=== PATIENT | female | born 1965 | race African-American/Black ===

== ENCOUNTER → 2016-07-18 | Outpatient (CLI) | payer MEDICARE, MEDICAID | LOC: WI 13:30 | PROVIDERS: ATTEND Internal Medicine Geriatric Medicine | DX: Z12.31 Encounter for screening mammogram for malignant neoplasm of breast (principal); N63 Unspecified lump in breast | CPT/HCPCS: 77067; G0202 ==

== ENCOUNTER 2016-10-07 18:23 | Emergency (ER) | payer MEDICARE, MEDICAID ==
[2016-10-07 18:35] VITALS: BP 130/86
[2016-10-07] MEDS ORDERED: ASPIRIN 81 MG TABLET, CHEWABLE PO ONE (18:38)
--- NOTE | 2016-10-07 18:40 | ER Document Report ---
ED General - General Chief Complaint: Chest Pain Stated Complaint: CHEST PAIN TRAVEL OUTSIDE OF THE [place] IN LAST 30 DAYS: No - HPI Notes: Chest pain right-sided starting this a.m. patient has a history of diabetes. - Related Data Allergies/Adverse Reactions: No Known Allergies Allergy (Verified 10/07/16 18:36) Past Medical History - Social History Smoking Status: Never Smoker Chew tobacco use (# tins/day): No Frequency of alcohol use: None Drug Abuse: None Family History: Reviewed & Not Pertinent - Past Medical History Cardiac Medical History: Reports: Hx Hypertension Pulmonary Medical History: Reports: Hx Bronchitis Endocrine Medical History: Reports: Hx Diabetes Mellitus Type 2 Renal/ Medical History: Denies: Hx Peritoneal Dialysis Musculoskeltal Medical History: Reports Hx Arthritis Past Surgical History: Reports: Hx Section - X1, Hx Cholecystectomy, Hx Hysterectomy - Immunizations Immunizations up to date: No Hx Diphtheria, Pertussis, Tetanus Vaccination: No Review of Systems - Review of Systems Cardiovascular: Chest pain Physical Exam - Vital signs Vitals: Temp Pulse Resp BP Pulse Ox 98.5 F 104 H 18 130/86 H 99 10/07/16 18:33 10/07/16 18:33 10/07/16 18:33 10/07/16 18:33 10/07/16 18:33 - Cardiovascular Rhythm: Regular Heart sounds: Normal auscultation Course - Vital Signs Vital signs: Temp Pulse Resp BP Pulse Ox 98.5 F 104 H 18 130/86 H 99 10/07/16 18:33 10/07/16 18:33 10/07/16 18:33 10/07/16 18:33 10/07/16 18:33
[2016-10-07 19:28] LABS: ABSOLUTE BASOPHILS # (AUTO) 0.2 10^3/uL (0.0-0.2); ABSOLUTE EOSINOPHILS # (AUTO) 0.1 10^3/uL (0.0-0.6); ABSOLUTE LYMPHOCYTES (AUTO) 2.4 10^3/uL (0.5-4.7); ABSOLUTE MONOCYTES (AUTO) 0.5 10^3/uL (0.1-1.4); ABSOLUTE NEUT (AUTO) 8.1 10^3/uL (1.7-8.2); BASOPHILS % (AUTO) 1.3 % (0-2); EOSINOPHILS % (AUTO) 1.2 % (0-6); HEMATOCRIT 43.6 % (36.0-47.0); HGB HCT DIFFERENCE -1.6; LYMPHOCYTES % (AUTO) 21.4 % (13-45); MEAN CORPUSCULAR HEMOGLOBIN 26.8 pg (27.0-33.4); MEAN CORPUSCULAR VOLUME 84 fl (80-97); MONOCYTES % (AUTO) 4.8 % (3-13); RED CELL DISTRIBUTION WIDTH 16.9 % (11.5-14.0); SEGMENTED NEUTROPHILS % (AUTO) 71.3 % (42-78); WHITE BLOOD COUNT 11.3 10^3/uL (4.0-10.5)
[2016-10-07 19:44] LABS: ALANINE AMINOTRANSFERASE 38 U/L (9-52); ALKALINE PHOSPHATASE 148 U/L (38-126); ANION GAP 12 (5-19); ASPARTATE AMINO TRANSFERASE 23 U/L (14-36); BILIRUBIN,DIRECT 0.4 mg/dL (0.0-0.4); BILIRUBIN,TOTAL 0.6 mg/dL (0.2-1.3); BLOOD UREA NITROGEN 16 mg/dL (7-20); CARBON DIOXIDE 23 mmol/L (22-30); CHLORIDE 102 mmol/L (98-107); CREATINE KINASE 110 U/L (30-135); CREATININE RESULT 0.71 mg/dL (0.52-1.25); POTASSIUM 4.8 mmol/L (3.6-5.0); SODIUM 137.2 mmol/L (137-145); TOTAL PROTEIN 7.3 g/dL (6.3-8.2)
[2016-10-07 19:54] LABS: CREATINE KINASE MB < 0.22 ng/mL (<4.55); GLUCOSE 445 mg/dL (75-110); TROPONIN I < 0.012 ng/mL
[2016-10-07] MEDS ORDERED: LIDOCAINE 5% (700 MG) TRANSDERMAL ADH..PATCH TP ONE (20:12)
[2016-10-07] MEDS ORDERED: IBUPROFEN 600 MG TABLET PO ONE (20:12)
[2016-10-07] MEDS ORDERED: INSULIN LISPRO 100 UNIT/ML 3 ML VIAL SUBCUT ONE (20:15)
--- NOTE | 2016-10-07 21:29 | ER Document Report ---
ED General - General Chief Complaint: Chest Pain Stated Complaint: CHEST PAIN Time Seen by Provider: 10/07/16 19:49 Notes: Patient is a 51-year-old female with past medical history of hypertension, morbid obesity, diabetes who presents with 36 hours of an intermittent, stabbing pain in her proximal sternum. States the pain is worsened by moving. Nothing improves the pain it does resolve spontaneously. She has a history of similar symptoms in the past. No history of DVT or pulmonary embolus. No known cardiac disease. She has not seen her primary care doctor regarding today 's concerns. She denies any associated nausea, vomiting, diaphoresis or shortness of breath. No radiation of the pain. TRAVEL OUTSIDE OF THE [place] IN LAST 30 DAYS: No - Related Data Allergies/Adverse Reactions: No Known Allergies Allergy (Verified 10/07/16 18:36) Past Medical History - General Information source: Patient - Social History Smoking Status: Never Smoker Chew tobacco use (# tins/day): No Frequency of alcohol use: None Drug Abuse: None Lives with: Spouse/Significant other Family History: Reviewed & Not Pertinent - Past Medical History Cardiac Medical History: Reports: Hx Hypertension Pulmonary Medical History: Reports: Hx Bronchitis Endocrine Medical History: Reports: Hx Diabetes Mellitus Type 2 Renal/ Medical History: Denies: Hx Peritoneal Dialysis Musculoskeltal Medical History: Reports Hx Arthritis Past Surgical History: Reports: Hx Section - X1, Hx Cholecystectomy, Hx Hysterectomy - Immunizations Immunizations up to date: No Hx Diphtheria, Pertussis, Tetanus Vaccination: No Review of Systems - Review of Systems Notes: Constitutional: Negative for fever. HENT: Negative for sore throat. Eyes: Negative for visual changes. Cardiovascular: Positive for chest pain. Respiratory: Negative for shortness of breath. Gastrointestinal: Negative for abdominal pain, vomiting or diarrhea. Genitourinary: Negative for dysuria. Musculoskeletal: Negative for back pain. Skin: Negative for rash. Neurological: Negative for headaches, weakness or numbness. 10 point ROS negative except as marked above and in HPI. Physical Exam - Vital signs Vitals: Temp Pulse Resp BP Pulse Ox 98.5 F 104 H 18 130/86 H 99 10/07/16 18:33 10/07/16 18:33 10/07/16 18:33 10/07/16 18:33 10/07/16 18:33 Interpretation: Normal Notes: PHYSICAL EXAMINATION: GENERAL: Well-appearing, well-nourished and in no acute distress. HEAD: Atraumatic, normocephalic. EYES: Pupils equal round and reactive to light, extraocular movements intact, sclera anicteric, conjunctiva are normal. ENT: nares patent, oropharynx clear without exudates. Moist mucous membranes. NECK: Normal range of motion, supple without lymphadenopathy LUNGS: Breath sounds clear to auscultation bilaterally and equal. No wheezes rales or rhonchi. HEART: Regular rate and rhythm without murmurs Chest wall: Severe pain on palpation of the location of patient's discomfort ABDOMEN: Soft, nontender, normoactive bowel sounds. No guarding, no rebound. No masses appreciated. EXTREMITIES: Normal range of motion, no pitting or edema. No cyanosis. NEUROLOGICAL: No focal neurological deficits. Moves all extremities spontaneously and on command. PSYCH: Normal mood, normal affect. SKIN: Warm, Dry, normal turgor, no rashes or lesions noted. Course - Re-evaluation Re-evalutation: 10/07/16 20:13 Presentation of chest pain in an otherwise well appearing patient. Low clinical suspicion for ACS given clinical history, exam, EKG without ST elevations or depressions, and negative initial troponin. HEART score less than or equal to 3. PE also seems unlikely given clinical history, absence of tachycardia or dyspnea. Wells score is 0 (using HR at time of assessment and on EKG). CXR without evidence of pneumothorax or pneumonia. No widened mediastinum. Aortic dissection also seems unlikely given history, symmetric pulses, CXR, and vitals. Pain is extremely reproducible on the upper sternal region. HEART Score: History:0 EC Age:1 Risk Factors:2 Troponin:0 Total: 3 Chest pain in a patient without evidence of cardiac or other serious etiology on workup today. I discussed with patient that, based on their age, risk factors and emergency department testing today, the likelihood that their symptoms are related to a heart attack is very low (estimated risk of heart attack or over the next 30 days of less than 1%). The patient demonstrates decision making capacity and has verbalized an understanding of these risks to me. Based on this, the patient has chosen to follow-up as an outpatient. Usual chest pain return precautions reviewed. The patient states understanding and agreement with this plan. 10/07/16 22:33 Second troponin has remained negative. Final assessment: Chest pain in a patient without evidence of cardiac or other serious etiology on workup today. I discussed with patient that, based on their age, risk factors and emergency department testing today, the likelihood that their symptoms are related to a heart attack is very low (estimated risk of heart attack or over the next 30 days of less than 1%). The patient demonstrates decision making capacity and has verbalized an understanding of these risks to me. Based on this, the patient has chosen to follow-up as an outpatient. Usual chest pain return precautions reviewed. The patient states understanding and agreement with this plan. - Vital Signs Vital signs: Temp Pulse Resp BP Pulse Ox 98.5 F 104 H 18 130/86 H 100 10/07/16 18:33 10/07/16 18:33 10/07/16 21:00 10/07/16 18:33 10/07/16 21:00 - Laboratory Result Diagrams: 10/07/16 18:55 10/07/16 18:55 Laboratory results interpreted by me: 10/07/16 10/07/16 18:55 18:55 WBC 11.3 H MCH 26.8 L RDW 16.9 H Plt Count 595 H Glucose 445 H* Alkaline Phosphatase 148 H - Diagnostic Test Radiology reviewed: Image reviewed, Reports reviewed Radiology results interpreted by me: 10/07/16 20:15 Chest x-ray: No acute infiltrate or pneumothorax Discharge - Discharge Clinical Impression: Hyperglycemia Chest pain Qualifiers: Chest pain type: unspecified Qualified Code(s): R07.9 - Chest pain, unspecified Condition: Good Disposition: HOME, SELF-CARE Additional Instructions: You were seen today for chest pain. The exact cause of your pain is unclear. However, based on your cardiac enzyme testing, chest x-ray, and EKG it does not appear that it is from an immediately life-threatening cause at this time. Although your testing here is normal is critical that you follow-up with your primary care physician for continued evaluation of this chest pain and possible stress testing. I recommended you see your physician within the next 24-48 hours to be evaluated for consideration of a stress test. Please return to emergency department immediately if you have worsening of your chest pain, shortness of breath, vomiting, become unable to exert yourself due to pain or difficulty breathing, you pass out, or have any pain that radiates into your arms, jaw, or back. Please also return if you have any additional symptoms that are concerning to you. You need to followup urgently with your primary care doctor as your blood sugars were dangerously high today. You did not have any evidence of a dangerous condition associated with these blood sugars at this time. However, it is very important that you get your blood sugars under control. Please take all of your medications exactly as directed. You should avoid foods that are high in carbohydrates and sugary foods. Losing weight will also help to better control your blood sugars. Please return to emergency department immediately if you develop weakness, persistent vomiting, confusion, or any other symptoms that are concerning to you. Referrals: CALDERON MOSES MD [Primary Care Provider] - Follow up in 3-5 days
--- NOTE | 2016-10-07 22:45 | EKG REPORT ---
SEVERITY:- BORDERLINE ECG - SINUS RHYTHM BORDERLINE T WAVE ABNORMALITIES : Confirmed by: Bernadra Recio 07-Oct-2016 22:44:48
== END 2016-10-07 22:58 | disposition home or self-care (01) ==
LOC: ER 18:23
DX: R07.9 Chest pain, unspecified (principal); E11.65 Type 2 diabetes mellitus with hyperglycemia; I10 Essential (primary) hypertension
CPT/HCPCS: 93005; 99285; 36415; 82553; 82550; 85025; 80053; 84484; 71020; 93010; A9270 ×3; J1815

== ENCOUNTER 2017-02-18 10:51 | Emergency (ER) | payer MEDICARE, MEDICAID ==
[2017-02-18] MEDS ORDERED: OXYCODONE-ACETAMINOPHEN 5-325 MG TABLET PO ONE (11:48)
--- NOTE | 2017-02-18 11:54 | ER Document Report ---
HPI - HPI Patient complains to provider of: joint pain Onset: Last week Onset/Duration: Persistent Quality of pain: Achy Pain Level: 4 Context: Patient presents with a history of rheumatoid arthritis and complains of flareup of bilateral knee joint pain. Patient states she has had the pain for the past week. Patient denies any fever injury. Patient denies pain relief with [id number] medications. Associated Symptoms: Other - Bilateral knee joint pain. denies: Fever Exacerbated by: Standing, Movement, Walking Relieved by: Denies Similar symptoms previously: Yes Recently seen / treated by doctor: No - ROS ROS below otherwise negative: Yes Systems Reviewed and Negative: Yes All other systems reviewed and negative - CONSTITUTIONAL Constitutional: DENIES: Fever - NEURO Neurology: DENIES: Weakness - GASTROINTESTINAL Gastrointestinal: DENIES: Nausea - REPRODUCTIVE Reproductive: DENIES: : - MUSCULOSKELETAL Musculoskeletal: REPORTS: Extremity pain, Swelling - DERM Skin Color: Normal Skin Problems: None Past Medical History - General Information source: Patient - Social History Smoking Status: Never Smoker Frequency of alcohol use: None Drug Abuse: None Occupation: None Lives with: Family Family History: Reviewed & Not Pertinent Patient has suicidal ideation: No Patient has homicidal ideation: No - Past Medical History Cardiac Medical History: Reports: Hx Hypercholesterolemia, Hx Hypertension Pulmonary Medical History: Reports: Hx Bronchitis Endocrine Medical History: Reports: Hx Diabetes Mellitus Type 2 Renal/ Medical History: Denies: Hx Peritoneal Dialysis GI Medical History: Reports: Hx Gastroesophageal Reflux Disease Musculoskeltal Medical History: Reports Hx Arthritis Past Surgical History: Reports: Hx Section - X1, Hx Cholecystectomy, Hx Hysterectomy - Immunizations Immunizations up to date: No Hx Diphtheria, Pertussis, Tetanus Vaccination: No Vertical Provider Document - CONSTITUTIONAL Agree With Documented VS: Yes Exam Limitations: No Limitations General Appearance: WD/WN, No Apparent Distress, Obese - morbid - INFECTION CONTROL TRAVEL OUTSIDE OF THE [place] IN LAST 30 DAYS: No - HEENT HEENT: Atraumatic, Normocephalic - NECK Neck: Normal Inspection, Supple - RESPIRATORY Respiratory: Breath Sounds Normal, No Respiratory Distress, Chest Non-Tender O2 Sat by Pulse Oximetry: 98 - CARDIOVASCULAR Cardiovascular: Regular Rate, Regular Rhythm, No Murmur Pulses: Normal: Radial, Posterior tibial, Dorsalis pedis - BACK Back: Normal Inspection - MUSCULOSKELETAL/EXTREMETIES Musculoskeletal/Extremeties: MAEW, FROM, Tender - Bilateral knee joint tenderness to inferior compartment and popliteal area, no obvious joint effusion , no laxity with varus or valgus maneuvers. Normal skin color and temperature overlying bilateral knee joints - NEURO Level of Consciousness: Awake, Alert, Appropriate Motor/Sensory: No Motor Deficit - DERM Integumentary: Warm, Dry Course - Vital Signs Vital signs: Temp Pulse Resp BP Pulse Ox 97.8 F 80 18 149/113 H 98 02/18/17 11:01 02/18/17 11:01 02/18/17 11:01 02/18/17 11:01 02/18/17 11:01 Discharge - Discharge Clinical Impression: Hx of rheumatoid arthritis, Hx of essential hypertension Knee joint pain Qualifiers: Laterality: bilateral Qualified Code(s): M25.561 - Pain in right knee Condition: Stable Disposition: HOME, SELF-CARE Instructions: Oral Narcotic Medication ([facility]), Rheumatoid Arthritis ([facility]) Additional Instructions: Return immediately for any new or worsening symptoms Followup with your primary care provider, call tomorrow to make a followup appointment Follow-up with a manager poker for further management of your rheumatoid arthritis Prescriptions: Capsaicin [Arthritis Pain Relief] 1 applic TP TID PRN #42.5 cream..g. PRN Reason: Oxycodone HCl/Acetaminophen [Percocet 5-325 mg Tablet] 1 tab PO ASDIR PRN #12 tablet PRN Reason: Walker [Folding Walker] 1 each MC ASDIR PRN #1 each PRN Reason: Forms: Elevated Blood Pressure Referrals: CALDERON MOSES MD [Primary Care Provider] - Follow up tomorrow
[2017-02-18 12:00] VITALS: BP 145/98
== END 2017-02-18 12:01 | disposition home or self-care (01) ==
LOC: ER 10:51
DX: M25.561 Pain in right knee (principal); M25.562 Pain in left knee; M79.89 Other specified soft tissue disorders; M06.9 Rheumatoid arthritis, unspecified; I10 Essential (primary) hypertension
CPT/HCPCS: 99283; A9270

== ENCOUNTER 2017-03-19 07:50 | Day surgery (SDC) | payer MEDICARE, MEDICAID ==
[~2017-03-19 07:50] MED LIST: BUPIVACAINE HCL 0.75% INJ/PF (7.5 MG/1 ML) 10 ML SDV OS PRN; KETOROLAC TROMETHAMINE 0.45% 4 DROP/0.4 ML DROPERETTE OS PRN; LIDOCAINE 4% INJ/PF (40 MG/ML) 5 ML AMPUL OS PRN
[2017-03-19] MEDS: TETRACAINE HCL 0.5% OPH SOLN 0.6 ML DROPERETTE OS PRN ×2 (08:20→08:47)
[2017-03-19] MEDS: TROPICAMIDE 1% OPH SOLN 3 ML OS PRN ×3 (08:21→08:45)
[2017-03-19] MEDS: CYCLOPENTOLATE 0.2%/PHENYLEPHRINE 1% OPH SOLN 2 ML OS PRN ×3 (08:21→08:45)
[2017-03-19] MEDS: BESIFLOXACIN HCL 0.6% OPH SUSP 5 ML BOTTLE OS PRN ×4 (08:22→09:28)
[2017-03-19] MEDS ORDERED: MIDAZOLAM 2 MG/2 ML INJ ONE (08:37)
[2017-03-19] MEDS ORDERED: FENTANYL CITRATE INJ/PF 100 MCG/2 ML AMPUL ONE (08:38)
[2017-03-19] MEDS: CHONDR SU A NA/HYALUR INTRAOC KIT (SURGICARE) ONE ×2 (09:13)
[2017-03-19] MEDS: PHENYLEPHRINE/KETOROLAC 1%-0.3% 4 ML VIAL ONE ×2 (09:13)
--- NOTE | 2017-03-19 09:47 | [facility] OPERATIVE REPORT E ---
[facility] Operative Report NAME: LENY LEW AGE: 51Y DATE OF SURGERY: 03/19/2017 ROOM: PREOPERATIVE DIAGNOSIS: Cataract, left eye. POSTOPERATIVE DIAGNOSIS: Cataract, left eye. PROCEDURE PERFORMED: Phacoemulsification with posterior chamber intraocular lens, left eye. SURGEON: Nikki Burroughs MD ANESTHESIA: Topical with MAC. INDICATIONS FOR SURGERY: Difficult reading road signs and words on TV. Best corrected visual acuity 20/50. PROCEDURE: The patient was brought to the operating room and placed on the operative table. Following tetracaine drops, topical anesthesia was administered. This consisted of instrument wipe pledgets soaked in a solution of 4% Xylocaine mixed with 0.75% Marcaine in a 1:2 ratio. A 2 x 1 cm pledget was placed in the superior fornix. A 1 x 1 cm pledget was placed in the inferior fornix. The eye was patched shut for 5 minutes. The patch was removed. The eye was sterilely prepped and draped in the usual manner. Lid speculum was placed in the eye. The pledgets were removed. 4-0 black silk sutures were placed around the superior and the inferior rectus muscles to be used as traction. A conjunctival peritomy was made at the 10 o'clock position. Hemostasis was obtained with bipolar cautery. A posterior limbal groove was created using a crescent knife and dissected anteriorly towards the cornea. A sharp point blade was used to create a paracentesis site at the 2 o'clock position. A 2.4 mm keratome was used to enter the anterior chamber through the groove. Viscoelastic was injected into the anterior chamber. An anterior capsulotomy was performed using Utrata forceps in a capsulorrhexis fashion. Hydrodissection and hydrodelineation were performed. Phacoemulsification was performed in ahosyk-rdq-cverrkz technique. A total of 6.40 CDE phaco time was used. Following this, the I/A unit was used to remove residual cortex. Viscoelastic was injected into the capsular bag. Intraocular lens model [id number], 20.5 diopters, serial number [id number] was placed in the capsular bag. The I/A unit was used to remove residual viscoelastic. The wound was seen to be watertight under high and low pressure, and no sutures were placed. The intraocular lens was well centered. The pressure was adjusted in the eye to normal pressure. The 4-0 black silk sutures and lid speculum were removed. The eye was shielded after Besivance drops were placed. The patient tolerated the procedure well and was sent to the recovery room in good condition. DICTATING PHYSICIAN: NIKKI BURROUGHS M.D. [id number] PHY#: [id number] ID: [id number] JOB#: [id number] ACCT: [id number] cc:NIKKI BURROUGHS M.D. >
--- NOTE | 2017-03-19 09:47 | [facility] DISCHARGE SUMMARY E ---
[facility] Discharge Summary NAME: LENY LEW AGE: 51Y ADMITTED: 03/19/2017 DISCHARGED: 03/19/2017 PREOPERATIVE DIAGNOSIS: Cataract, left eye. POSTOPERATIVE DIAGNOSIS: Cataract, left eye. HOSPITAL COURSE: The patient is a 51-year-old lady who underwent uneventful cataract extraction with intraocular lens implant, left eye, on 03/19/2016. She will be discharged to home. She was instructed to resume preoperative medications, take Tylenol as needed for discomfort, to keep her eye shielded, to use Besivance, Durezol, and Ilevro at 3 p.m. and 8 p.m., and to followup in my office in 1 day. DICTATING PHYSICIAN: DIRK BURROUGHS M.D. [id number] PHY#: [id number] ID: [id number] JOB#: [id number] ACCT: [id number] cc:DIRK BURROUGHS M.D. >
== END 2017-03-19 10:23 | disposition home or self-care (01) ==
LOC: SC 07:50
PROVIDERS: ATTEND Ophthalmology
PROC: 08RK3JZ Replacement of Left Lens with Synthetic Substitute, Percutaneous Approach (ICD-10-PCS; principal; 2017-03-19 09:00)
DX: H25.813 Combined forms of age-related cataract, bilateral (principal); E08.3 Diabetes mellitus due to underlying condition with ophthalmic complications; E11.9 Type 2 diabetes mellitus without complications; I10 Essential (primary) hypertension; E66.9 Obesity, unspecified; M19.90 Unspecified osteoarthritis, unspecified site; K21.9 Gastro-esophageal reflux disease without esophagitis; Z87.891 Personal history of nicotine dependence; Z79.84 Long term (current) use of oral hypoglycemic drugs; Z68.43 Body mass index [BMI] 50.0-59.9, adult
CPT/HCPCS: 66984; 82962; V2632; J2250; J3490 ×3; A9270; J3010; C9447; 142

== ENCOUNTER 2017-04-16 08:35 | Day surgery (SDC) | payer MEDICARE, MEDICAID ==
[~2017-04-16 08:35] MED LIST changes: +BUPIVACAINE HCL 0.75% INJ/PF (7.5 MG/1 ML) 10 ML SDV OD PRN; -BUPIVACAINE HCL 0.75% INJ/PF (7.5 MG/1 ML) 10 ML SDV OS PRN; +CHONDR SU A NA/HYALUR INTRAOC KIT (SURGICARE) ONE; +FENTANYL CITRATE INJ/PF 100 MCG/2 ML AMPUL ONE; +KETOROLAC TROMETHAMINE 0.45% 4 DROP/0.4 ML DROPERETTE OD PRN; -KETOROLAC TROMETHAMINE 0.45% 4 DROP/0.4 ML DROPERETTE OS PRN; +LIDOCAINE 4% INJ/PF (40 MG/ML) 5 ML AMPUL OD PRN; -LIDOCAINE 4% INJ/PF (40 MG/ML) 5 ML AMPUL OS PRN; +MIDAZOLAM 2 MG/2 ML INJ ONE; +PHENYLEPHRINE/KETOROLAC 1%-0.3% 4 ML VIAL ONE
[2017-04-16] MEDS: TETRACAINE HCL 0.5% OPH SOLN 0.6 ML DROPERETTE OD PRN ×2 (08:57→09:15)
[2017-04-16] MEDS: TROPICAMIDE 1% OPH SOLN 3 ML OD PRN ×3 (08:58→09:15)
[2017-04-16] MEDS: CYCLOPENTOLATE 0.2%/PHENYLEPHRINE 1% OPH SOLN 2 ML OD PRN ×3 (08:58→09:15)
[2017-04-16] MEDS: BESIFLOXACIN HCL 0.6% OPH SUSP 5 ML BOTTLE OD PRN ×3 (08:59→09:44)
[2017-04-16] MEDS ORDERED: LIDOCAINE 1% INJ-PF (10 MG/ML) 30 ML SDV ONE (09:45)
--- NOTE | 2017-04-16 09:58 | [facility] OPERAT[facility] REPORT E ---
[facility] Operative Report NAME: LENY LEW AGE: 51Y DATE OF SURGERY: 04/16/2017 ROOM: PREOPERATIVE DIAGNOSIS: Cataract, right eye. POSTOPERATIVE DIAGNOSIS: Cataract, right eye. PROCEDURE PERFORMED: Phacoemulsification with posterior chamber intraocular lens, right eye. SURGEON: Nikki Burroughs MD ANESTHESIA: Topical with MAC. INDICATIONS FOR SURGERY: Difficulty reading road signs and captions on TV. Best corrected visual acuity 20/40. PROCEDURE: The patient was brought to the operating room and placed on the operative table. Following tetracaine drops, topical anesthesia was administered. This consisted of instrument wipe pledgets soaked in a solution of 4% Xylocaine mixed with 0.75% Marcaine in a 1:2 ratio. A 2 x 1 cm pledget was placed in the superior fornix. A 1 x 1 cm pledget was placed in the inferior fornix. The eye was patched shut for 5 minutes. The patch was removed. The eye was sterilely prepped and draped in the usual manner. Lid speculum was placed in the eye. The pledgets were removed. 4-0 black silk sutures were placed around the superior and the inferior rectus muscles to be used as traction. A conjunctival peritomy was made at the 10 o'clock position. Hemostasis was obtained with bipolar cautery. A posterior limbal groove was created using a crescent knife and dissected anteriorly towards the cornea. A sharp point blade was used to create a paracentesis site at the 2 o'clock position. A 2.4 mm keratome was used to enter the anterior chamber through the groove. Viscoelastic was injected into the anterior chamber. An anterior capsulotomy was performed using Utrata forceps in a capsulorrhexis fashion. Hydrodissection and hydrodelineation were performed. Phacoemulsification was performed in ddwmke-puw-buynhmu technique. A total of 44 seconds phaco time was used. Following this, the I/A unit was used to remove residual cortex. Viscoelastic was injected into the capsular bag. Intraocular lens model SN60WF, 21.5 diopters, serial number [id number] was placed in the capsular bag. The I/A unit was used to remove residual viscoelastic. The wound was seen to be watertight under high and low pressure, and no sutures were placed. The intraocular lens was well centered. The pressure was adjusted in the eye to normal pressure. The 4-0 black silk sutures and lid speculum were removed. The eye was shielded after Besivance drops were placed. The patient tolerated the procedure well and was sent to the recovery room in good condition. DICTATING PHYSICIAN: NIKKI BURROUGHS M.D. [id number] PHY#: [id number] ID: [id number] JOB#: [id number] ACCT: [id number] cc:NIKKI BURROUGHS M.D. >
--- NOTE | 2017-04-16 10:03 | [facility] DISCHARGE SUMMARY E ---
[facility] Discharge Summary NAME: LENY LEW AGE: 51Y ADMITTED: 04/16/2017 DISCHARGED: 04/16/2017 PREOPERATIVE DIAGNOSIS: Cataract, right eye. POSTOPERATIVE DIAGNOSIS: Cataract, right eye. HOSPITAL COURSE: The patient is a 51-year-old lady who underwent uneventful cataract extraction with intraocular lens implant, right eye, on 04/16/2017. She will be discharged to home. She was instructed to resume preoperative medications, take Tylenol as needed for discomfort, to keep her eye shielded, to use Besivance, Durezol, and Ilevro at 3 p.m. and 8 p.m., and to followup in my office in 1 day. DICTATING PHYSICIAN: DIRK BURROUGHS M.D. [id number] PHY#: [id number] ID: [id number] JOB#: [id number] ACCT: [id number] cc:DIRK BURROUGHS M.D. >
== END 2017-04-16 10:24 | disposition home or self-care (01) ==
LOC: SC 08:35
PROVIDERS: ATTEND Ophthalmology
DX: H25.811 Combined forms of age-related cataract, right eye (principal); Z96.1 Presence of intraocular lens; I10 Essential (primary) hypertension; K21.9 Gastro-esophageal reflux disease without esophagitis; M06.9 Rheumatoid arthritis, unspecified; E11.9 Type 2 diabetes mellitus without complications; E66.9 Obesity, unspecified; Z79.84 Long term (current) use of oral hypoglycemic drugs; Z68.42 Body mass index [BMI] 45.0-49.9, adult
CPT/HCPCS: 82962; 66984; V2632; J2250; J3490 ×4; A9270; J3010; C9447; 142

== ENCOUNTER 2017-04-23 15:39 | Inpatient (IN) | payer MEDICARE, MEDICAID ==
[2017-04-23 18:31] LABS: APPEARANCE,URINE CLEAR; BILIRUBIN,URINE NEGATIVE (NEGATIVE); GLUCOSE, URINE >=500 mg/dL (NEGATIVE); KETONES,URINE NEGATIVE (NEGATIVE); LEUKOCYTE ESTERASE,URINE NEGATIVE (NEGATIVE); NITRITE,URINE NEGATIVE (NEGATIVE); PROTEIN,URINE NEGATIVE (NEGATIVE); URINE SPECIFIC GRAVITY 1.029; UROBILINOGEN,URINE NEGATIVE mg/dL (<2.0)
[2017-04-23] MEDS ORDERED: DEXTROSE 50%-WATER SYRINGE 25 GM/50 ML DOSE IV PRN (18:58)
[2017-04-23] MEDS ORDERED: GLUCAGON,HUMAN RECOMB 1 MG INJ IM PRN (18:58)
[2017-04-23] MEDS ORDERED: DEXTROSE 40% GEL 15 GM TUBE X 2 PO PRN (18:58)
[2017-04-23] MEDS ORDERED: DEXTROSE 50%-WATER SYRINGE 12.5 GM/25 ML DOSE IV PRN (18:58)
[2017-04-23] MEDS ORDERED: DEXTROSE 40% GEL 15 GM TUBE PO PRN (18:58)
[2017-04-23 19:42] LABS: ABSOLUTE EOSINOPHILS # (AUTO) 0.1 10^3/uL (0.0-0.6); ABSOLUTE LYMPHOCYTES (AUTO) 2.6 10^3/uL (0.5-4.7); ABSOLUTE MONOCYTES (AUTO) 0.5 10^3/uL (0.1-1.4); ABSOLUTE NEUT (AUTO) 5.8 10^3/uL (1.7-8.2); BASOPHILS % (AUTO) 0.1 % (0-2); EOSINOPHILS % (AUTO) 1.3 % (0-6); HEMATOCRIT 42.7 % (36.0-47.0); HEMOGLOBIN 14.2 g/dL (12.0-15.5); HGB HCT DIFFERENCE -0.1; LYMPHOCYTES % (AUTO) 28.7 % (13-45); MEAN CORPUSCULAR HGB CONC 33.2 g/dL (32.0-36.0); MEAN CORPUSCULAR VOLUME 84 fl (80-97); MONOCYTES % (AUTO) 5.3 % (3-13); RED BLOOD COUNT 5.08 10^6/uL (3.72-5.28); RED CELL DISTRIBUTION WIDTH 15.5 % (11.5-14.0); SEGMENTED NEUTROPHILS % (AUTO) 64.6 % (42-78)
[2017-04-23 19:57] LABS: ALANINE AMINOTRANSFERASE 48 U/L (9-52); ALBUMIN 4.2 g/dL (3.5-5.0); ALKALINE PHOSPHATASE 164 U/L (38-126); ANION GAP 12 (5-19); ASPARTATE AMINO TRANSFERASE 40 U/L (14-36); BILIRUBIN,DIRECT 0.3 mg/dL (0.0-0.4); BILIRUBIN,TOTAL 0.4 mg/dL (0.2-1.3); BLOOD UREA NITROGEN 11 mg/dL (7-20); CALCIUM 9.7 mg/dL (8.4-10.2); CARBON DIOXIDE 30 mmol/L (22-30); CHLORIDE 98 mmol/L (98-107); CREATININE RESULT 0.57 mg/dL (0.52-1.25); GLUCOSE 386 mg/dL (75-110); POTASSIUM 4.6 mmol/L (3.6-5.0); SODIUM 139.6 mmol/L (137-145); TOTAL PROTEIN 7.1 g/dL (6.3-8.2)
[2017-04-23] MEDS: INSULIN LISPRO 100 UNIT/ML 3 ML VIAL SUBCUT PRN (20:25)
--- NOTE | 2017-04-23 20:51 | PDOC H&P ---
History of Present Illness Admission Date/PCP: 04/23/17 15:39 CALDERON OSUNKBRETJeffy Patient complains of: Burning with urination, elevated blood glucose History of Present Illness: LENY LEW is a 51 year old female known to my practice who presented to the office today with complaints of persistent elevated blood glucose level above 500 mg/dL over the last 2 weeks. She reported associated vulval itching, abdominal pain radiating into her groin, fever, urinary frequency, diarrhea, post void dribbling and malodor to her urine. Patient reported postprandial nausea and occasional vomiting with consumption of fried food. Patient reported left knee swelling and pain with difficulty with walking, standing and participation in ADL. She claimed episodes of near fall incidents. There is associated nocturia, generalized fatigue, weakness, dizziness and frequent headache. Her accucheck in the office revealed glucose level at 427mg/dL and urine dipstick suggested significant glycosuria, positive nitrite trace blood and leukocytes. In view of her presenting symptoms constellations and laboratory findings she was advised hospitalization for further evaluation and management. er morbidities include morbid obesity, dietary noncompliance, Diabetes mellitus type 2, Hypertension., GERD, osteoarthritis, chronic pain syndrome, and functional urinary incontinence. Patient and family admitted to medication compliance. Past Medical History Cardiac Medical History: Reports: Hyperlipidema, Hypertension Pulmonary Medical History: Reports: Bronchitis Neurological Medical History: Endocrine Medical History: Reports: Diabetes Mellitus Type 2 GI Medical History: Reports: Gastroesophageal Reflux Disease Musculoskeltal Medical History: Reports: Arthritis Psychiatric Medical History: Reports: Depression Hematology: Denies: Anemia, Sickle Cell Disease Past Surgical History Past Surgical History: Reports: Section - X1, Cholecystectomy, Hysterectomy Denies: Amputation Social History Smoking Status: Current Some Day Smoker Cigarettes Packs Per Day: 0.2 Number of Years Smokin Frequency of Alcohol Use: None Hx Recreational Drug Use: No Drugs: None Hx Prescription Drug Abuse: No - Advance Directive Resuscitation Status: Full Code Family History Family History: CAD, CVA, DM, Hyperlipidemia, Hypertension Parental Family History Reviewed: Yes Children Family History Reviewed: Yes Sibling(s) Family History Reviewed.: Yes Medication/Allergy Home Medications: Duloxetine HCl [Cymbalta] 60 mg PO DAILY 04/23/17 Ramipril [Altace 10 mg Capsule] 10 mg PO DAILY 04/23/17 Simvastatin 10 mg PO DAILY 04/23/17 Sitagliptin Phosphate [Januvia] 100 mg PO DAILY 04/23/17 Allergies/Adverse Reactions: No Known Allergies Allergy (Verified 04/15/17 10:01) Review of Systems Constitutional: PRESENT: fatigue, fever(s), headache(s), weakness, weight gain Eyes: ABSENT: visual disturbances Ears: ABSENT: hearing changes Nose, Mouth, and Throat: PRESENT: headache(s). ABSENT: mouth pain, sore throat , vertigo Cardiovascular: PRESENT: edema. ABSENT: chest pain, dyspnea on exertion, orthropnea, palpitations Respiratory: ABSENT: cough, dyspnea, hemoptysis, sputum Gastrointestinal: PRESENT: abdominal pain, diarrhea, nausea, vomiting. ABSENT: bloating, coffee ground emesis, constipation, dysphagia, heartburn, hematemesis , hematochezia, melena Genitourinary: PRESENT: difficulty urinating, dysuria, nocturia. ABSENT: hematuria Musculoskeletal: PRESENT: deformity - related to degenerative joint disease, joint swelling - left knee Integumentary: ABSENT: rash, wounds Neurological: PRESENT: abnormal gait - due to knee jpint pain, weakness - generalized Psychiatric: ABSENT: anxiety, depression, homidical ideation, suicidal ideation Endocrine: PRESENT: polyuria. ABSENT: cold intolerance, flushing, heat intolerance, menstrual abnormalities, polydipsia, polyphagia Hematologic/Lymphatic: ABSENT: easy bleeding, easy bruising, lymphadenopathy Allergic/Immunologic: ABSENT: seasonal rhinorrhea Physical Exam Vital Signs: Temp Pulse Resp BP Pulse Ox 98 F 81 20 140/76 H 99 04/23/17 17:03 04/23/17 17:03 04/23/17 17:03 04/23/17 17:03 04/23/17 17:03 Intake & Output 04/22/17 04/23/17 04/24/17 06:59 06:59 06:59 Weight 139.253 kg General appearance: PRESENT: morbidly obese Head exam: PRESENT: atraumatic, normocephalic Eye exam: PRESENT: conjunctiva pink, EOMI, PERRLA. ABSENT: scleral icterus Ear exam: PRESENT: normal external ear exam Mouth exam: PRESENT: moist, tongue midline Teeth exam: PRESENT: poor dentation Throat exam: ABSENT: post pharyngeal erythema, tonsillar erythema, tonsillar exudate, tonsillogmegaly, other Neck exam: PRESENT: full ROM. ABSENT: carotid bruit, JVD, lymphadenopathy, thyromegaly Respiratory exam: PRESENT: clear to auscultation sarah, decreased breath sounds - at lung bases Cardiovascular exam: PRESENT: RRR. ABSENT: diastolic murmur, rubs, systolic murmur Pulses: PRESENT: normal dorsalis pedis pul, +2 pedal pulses bilateral Vascular exam: PRESENT: normal capillary refill. ABSENT: pallor GI/Abdominal exam: PRESENT: distended - related to morbid obesity, normal bowel sounds, soft. ABSENT: guarding, mass, organolmegaly, rebound, tenderness Rectal exam: PRESENT: deferred Extremities exam: PRESENT: joint swelling - left knee joint, tenderness - left knee joint top passive range of motion Musculoskeletal exam: PRESENT: ambulatory Neurological exam: PRESENT: alert, awake, oriented to person, oriented to place , oriented to time, oriented to situation, CN II-XII grossly intact. ABSENT: motor sensory deficit Psychiatric exam: PRESENT: appropriate affect, normal mood. ABSENT: homicidal ideation, suicidal ideation Skin exam: PRESENT: dry, intact, warm. ABSENT: cyanosis, rash Results Laboratory Results: 04/23/17 19:12 04/23/17 19:12 04/23/17 04/23/17 04/23/17 18:00 19:12 19:12 WBC 9.0 RBC 5.08 Hgb 14.2 Hct 42.7 MCV 84 MCH 28.0 MCHC 33.2 RDW 15.5 H Plt Count 529 H Seg Neutrophils % 64.6 Lymphocytes % 28.7 Monocytes % 5.3 Eosinophils % 1.3 Basophils % 0.1 Absolute Neutrophils 5.8 Absolute Lymphocytes 2.6 Absolute Monocytes 0.5 Absolute Eosinophils 0.1 Absolute Basophils 0.0 Sodium 139.6 Potassium 4.6 Chloride 98 Carbon Dioxide 30 Anion Gap 12 BUN 11 Creatinine 0.57 Est GFR ( Amer) > 60 Est GFR (Non-Af Amer) > 60 Glucose 386 H Calcium 9.7 Total Bilirubin 0.4 AST 40 H ALT 48 Alkaline Phosphatase 164 H Total Protein 7.1 Albumin 4.2 Urine Color STRAW Urine Appearance CLEAR Urine pH 5.0 Ur Specific [place] 1.029 Urine Protein NEGATIVE Urine Glucose (UA) >=500 H Urine Ketones NEGATIVE Urine Blood NEGATIVE Urine Nitrite NEGATIVE Ur Leukocyte Esterase NEGATIVE Urine WBC (Auto) 9 Urine RBC (Auto) 0 Assessment & Plan - Diagnosis (1) Uncontrolled type 2 diabetes mellitus Qualifiers: Diabetes mellitus complication status: with unspecified complications Diabetes mellitus snf insulin use: without snf use Qualified Code( s): E11.8 - Type 2 diabetes mellitus with unspecified complications; E11.65 - Type 2 diabetes mellitus with hyperglycemia; E11.65 - Type 2 diabetes mellitus with hyperglycemia; E11.65 - Type 2 diabetes mellitus with hyperglycemia; E11.65 - Type 2 diabetes mellitus with hyperglycemia Is this a current diagnosis for this admission?: Yes Plan: See admitting physician orders. (2) UTI (urinary tract infection) Qualifiers: Urinary tract infection type: acute cystitis Hematuria presence: without hematuria Qualified Code(s): N30.00 - Acute cystitis without hematuria Is this a current diagnosis for this admission?: Yes Plan: See admitting physician orders. (3) Morbid obesity with BMI of 45.0-49.9, adult Is this a current diagnosis for this admission?: Yes Plan: See admitting physician orders. (4) HTN (hypertension) Qualifiers: Hypertension type: essential hypertension Qualified Code(s): I10 - Essential (primary) hypertension Is this a current diagnosis for this admission?: Yes Plan: See admitting physician orders. (5) GERD (gastroesophageal reflux disease) Qualifiers: Esophagitis presence: without esophagitis Qualified Code(s): K21.9 - Gastro -esophageal reflux disease without esophagitis Is this a current diagnosis for this admission?: Yes Plan: See admitting physician orders. (6) Osteoarthritis of left knee Qualifiers: Osteoarthritis type: primary Qualified Code(s): M17.12 - Unilateral primary osteoarthritis, left knee Is this a current diagnosis for this admission?: Yes Plan: See admitting physician orders. (7) Chronic pain syndrome Is this a current diagnosis for this admission?: Yes Plan: See admitting physician orders. (8) Functional urinary incontinence Is this a current diagnosis for this admission?: Yes Plan: See admitting physician orders. - Time Time Spent: 50 to 70 Minutes Medications reviewed and adjusted accordingly: Yes Anticipated discharge: Home with Homehealth Within: Other - Inpatient Certification Based on my medical assessment, after consideration of the patient's comorbidities, presenting symptoms, or acuity I expect that the services needed warrant INPATIENT care.: Yes I certify that my determination is in accordance with my understanding of Medicare's requirements for reasonable and necessary INPATIENT services [42 CFR 412.3e].: Yes Medical Necessity: Need Close Monitoring Due to Risk of Patient Decompensation, Need For IV Fluids, Need For Continuous Telemetry Monitoring, Need for IV Antibiotics, Risk of Complication if Not Cared For in Hospital Post Hospital Care: D/C Continuity Writer Documentation - Plan Summary Plan Summary: See admitting physician orders.
[2017-04-23] MEDS: MEROPENEM 1 GM in NORMAL SALINE 50 ML IV SCH (22:52)
[2017-04-23] MEDS: SIMVASTATIN 10 MG TABLET PO SCH (22:52)
[2017-04-23] MEDS: NORMAL SALINE 1000 ML 1,000 ML IV PRN (22:52)
[2017-04-24] MEDS: LANSOPRAZOLE 30 MG TAB.RAP.DR PO SCH (06:06)
[2017-04-24] MEDS: MEROPENEM 1 GM in NORMAL SALINE 50 ML IV SCH ×3 (06:06→22:51)
[2017-04-24 06:30] LABS: ABSOLUTE EOSINOPHILS # (AUTO) 0.1 10^3/uL (0.0-0.6); ABSOLUTE LYMPHOCYTES (AUTO) 2.7 10^3/uL (0.5-4.7); ABSOLUTE MONOCYTES (AUTO) 0.5 10^3/uL (0.1-1.4); ABSOLUTE NEUT (AUTO) 4.2 10^3/uL (1.7-8.2); BASOPHILS % (AUTO) 0.5 % (0-2); HEMATOCRIT 37.1 % (36.0-47.0); HEMOGLOBIN 12.4 g/dL (12.0-15.5); HGB HCT DIFFERENCE 0.1; LYMPHOCYTES % (AUTO) 35.7 % (13-45); MEAN CORPUSCULAR HEMOGLOBIN 27.5 pg (27.0-33.4); MEAN CORPUSCULAR HGB CONC 33.4 g/dL (32.0-36.0); MEAN CORPUSCULAR VOLUME 83 fl (80-97); MONOCYTES % (AUTO) 6.3 % (3-13); RED CELL DISTRIBUTION WIDTH 15.4 % (11.5-14.0); SEGMENTED NEUTROPHILS % (AUTO) 55.5 % (42-78); WHITE BLOOD COUNT 7.5 10^3/uL (4.0-10.5)
[2017-04-24 06:47] LABS: ALANINE AMINOTRANSFERASE 44 U/L (9-52); ALBUMIN 3.2 g/dL (3.5-5.0); ALKALINE PHOSPHATASE 132 U/L (38-126); ANION GAP 9 (5-19); ASPARTATE AMINO TRANSFERASE 27 U/L (14-36); BILIRUBIN,DIRECT 0.3 mg/dL (0.0-0.4); BILIRUBIN,TOTAL 0.4 mg/dL (0.2-1.3); BLOOD UREA NITROGEN 10 mg/dL (7-20); CALCIUM 9.1 mg/dL (8.4-10.2); CARBON DIOXIDE 27 mmol/L (22-30); CHLORIDE 103 mmol/L (98-107); CREATININE RESULT 0.53 mg/dL (0.52-1.25); Direct HDL 46 mg/dL (>40); GLUCOSE 250 mg/dL (75-110); POTASSIUM 4.6 mmol/L (3.6-5.0); SODIUM 138.9 mmol/L (137-145); TOTAL PROTEIN 5.6 g/dL (6.3-8.2); TRIGLYCERIDES 75 mg/dL (<150)
[2017-04-24 06:58] LABS: DIRECT LDL 56 mg/dL (<100)
--- NOTE | 2017-04-24 09:29 | RADIOLOGY REPORT (SQ) ---
EXAM DESCRIPTION: U/S ABDOMEN COMPLETE W/DOPPLER COMPLETED DATE/TIME: 04/24/2017 9:09 am REASON FOR STUDY: Nausea, vomiting, abdominal pain, abnormal LFT COMPARISON: 03/21/2015. TECHNIQUE: Dynamic and static grayscale images acquired of the abdomen and recorded on PACS. Additio nal selected color Doppler and spectral images recorded. LIMITATIONS: None. FINDINGS: PANCREAS: No masses. Visualized pancreatic duct normal caliber. LIVER: Echotexture is coarse with increased echogenicity consistent with fatty infiltration. LIVER VASCULATURE: Normal directional flow of the main portal vein and hepatic veins. GALLBLADDER: Surgically absent. ULTRASOUND-DETECTED JESUS'S SIGN: Not applicable. INTRAHEPATIC DUCTS AND COMMON DUCT: CBD and intrahepatic ducts normal caliber. No filling defects. INFERIOR VENA CAVA: Normal flow. AORTA: No aneurysm. RIGHT KIDNEY: Normal size. Normal echogenicity. No solid or suspicious masses. No hydronephrosis. No calcifications. LEFT KIDNEY: Normal size. Normal echogenicity. No solid or suspicious masses. No hydronephrosis. No calcifications. SPLEEN:Normal size. No solid masses. PERITONEAL AND PLEURAL SPACES: No ascites or effusions. OTHER: No other significant finding. IMPRESSION: FATTY LIVER. NO OTHER SIGNIFICANT FINDING. TECHNICAL DOCUMENTATION: JOB ID: [id number] [employer]- All Rights Reserved
[2017-04-24] MEDS: DULOXETINE HCL 30 MG CAPSULE.DR PO SCH (10:34)
[2017-04-24] MEDS: RAMIPRIL 10 MG CAPSULE PO SCH (10:34)
[2017-04-24] MEDS: SITAGLIPTIN PHOSPHATE 50 MG TABLET PO SCH (10:35)
[2017-04-24] MEDS: ENOXAPARIN SODIUM INJ 40 MG/0.4 ML DISP.SYRIN SUBCUT SCH (10:36)
[2017-04-24] MEDS: NORMAL SALINE 1000 ML 1,000 ML IV PRN (10:41)
[2017-04-24] MEDS: INSULIN LISPRO 100 UNIT/ML 3 ML VIAL SUBCUT PRN ×3 (11:50→22:51)
[2017-04-24] MEDS: INSULIN GLARGINE,HUM.REC.ANLOG 300 UNIT/3 ML INSULN.PEN SUBCUT SCH (22:53)
[2017-04-24] MEDS: SIMVASTATIN 10 MG TABLET PO SCH (22:54)
[2017-04-25] MEDS: MEROPENEM 1 GM in NORMAL SALINE 50 ML IV SCH (05:31)
[2017-04-25] MEDS: LANSOPRAZOLE 30 MG TAB.RAP.DR PO SCH (05:31)
[2017-04-25] MEDS: METFORMIN HCL 500 MG TABLET PO SCH ×2 (08:23→17:12)
[2017-04-25] MEDS: INSULIN LISPRO 100 UNIT/ML 3 ML VIAL SUBCUT PRN ×4 (08:24→22:36)
[2017-04-25] MEDS: ENOXAPARIN SODIUM INJ 40 MG/0.4 ML DISP.SYRIN SUBCUT SCH (11:30)
[2017-04-25] MEDS: SITAGLIPTIN PHOSPHATE 50 MG TABLET PO SCH (11:31)
[2017-04-25] MEDS: DULOXETINE HCL 30 MG CAPSULE.DR PO SCH (11:31)
[2017-04-25] MEDS: RAMIPRIL 10 MG CAPSULE PO SCH (13:56)
--- NOTE | 2017-04-25 14:01 | Physician Advisory Note ---
Physician Advisor ProgressNote .: Pursuant to the plan for [facility], I have reviewed the medical record for this patient. Physician Advisor Statement: Please document specifically the acute clinical reasons she needed a 2nd night in hospital care & monitoring (as well as any additional nights in hospital), since a payer will point out that most patients with DM-2, UTI, obesity, chronic pain, & functional urinary incontinence are treatable as outpatients. Thanks! CK
[2017-04-25] MEDS: CEFPODOXIME 200 MG TABLET PO SCH (19:30)
[2017-04-25] MEDS: NORMAL SALINE 1000 ML 1,000 ML IV PRN (19:31)
--- NOTE | 2017-04-25 20:42 | PDOC PROGRESS REPORT ---
Subjective Progress Note for:: 04/25/17 Subjective:: Patient reported improvement in her glycemic control, polyuria, nausea, diarrhea and occasional vomiting as noted in history and physical upon admission. My concern for her admission was more because of significant issue with possible outpatient oral therapy due to constellation of her presenting symptoms including but not limited to abdominal pain radiating into her groin, fever, urinary frequency, diarrhea, postprandial, nausea and vomiting with consumption of fried food. Her admitting diagnosis is a reflection of my definite contributing etiology to her symptoms. Her urine culture did revealed growth of E.coli > 100,000 col/ml and abdominal ultrasound revealed fatty liver. Reason For Visit: UNCONTROLLED DIABETES, UTI WITH NAUSEA Physical Exam Vital Signs: Temp Pulse Resp BP Pulse Ox 98.6 F 80 19 144/81 H 97 04/25/17 09:00 04/25/17 14:00 04/25/17 09:00 04/25/17 09:00 04/25/17 09:00 Intake & Output 04/24/17 04/25/17 04/26/17 06:59 06:59 06:59 Intake Total 1100 3512 2140 Output Total 1300 980 850 Balance -200 2532 1290 Weight 139.253 kg 139.253 kg General appearance: PRESENT: no acute distress, morbidly obese Head exam: PRESENT: atraumatic, normocephalic Mouth exam: PRESENT: moist Respiratory exam: PRESENT: clear to auscultation sarah Cardiovascular exam: PRESENT: RRR. ABSENT: diastolic murmur, rubs, systolic murmur Vascular exam: PRESENT: normal capillary refill. ABSENT: pallor GI/Abdominal exam: PRESENT: normal bowel sounds, soft. ABSENT: distended, guarding, mass, organolmegaly, rebound, tenderness Musculoskeletal exam: PRESENT: deformity - due to knee joint arthritis Neurological exam: PRESENT: alert, awake, oriented to person, oriented to place , oriented to time, oriented to situation, CN II-XII grossly intact. ABSENT: motor sensory deficit Psychiatric exam: PRESENT: appropriate affect, normal mood. ABSENT: homicidal ideation, suicidal ideation Skin exam: PRESENT: dry, intact, warm. ABSENT: cyanosis, rash Results Laboratory Results: 04/24/17 06:06 04/24/17 06:06 04/25/17 11:40 Stool for White Cells NO WBCs SEEN 04/23/17 18:00 Clean Catch Midstream Urine Culture - Final Escherichia Coli Impressions: Abdomen Ultrasound 04/24/17 08:00 IMPRESSION: FATTY LIVER. NO OTHER SIGNIFICANT FINDING. Assessment & Plan - Diagnosis (1) Uncontrolled type 2 diabetes mellitus Qualifiers: Diabetes mellitus complication status: with unspecified complications Diabetes mellitus intermediate teacher insulin use: without intermediate teacher use Qualified Code( s): E11.8 - Type 2 diabetes mellitus with unspecified complications; E11.65 - Type 2 diabetes mellitus with hyperglycemia; E11.65 - Type 2 diabetes mellitus with hyperglycemia; E11.65 - Type 2 diabetes mellitus with hyperglycemia; E11.65 - Type 2 diabetes mellitus with hyperglycemia Is this a current diagnosis for this admission?: Yes Plan: Increase Lantus Insulin to 30 units subcut qhs. (2) UTI (urinary tract infection) Qualifiers: Urinary tract infection type: acute cystitis Hematuria presence: without hematuria Qualified Code(s): N30.00 - Acute cystitis without hematuria Is this a current diagnosis for this admission?: Yes (3) Morbid obesity with BMI of 45.0-49.9, adult Is this a current diagnosis for this admission?: Yes (4) HTN (hypertension) Qualifiers: Hypertension type: essential hypertension Qualified Code(s): I10 - Essential (primary) hypertension Is this a current diagnosis for this admission?: Yes (5) GERD (gastroesophageal reflux disease) Qualifiers: Esophagitis presence: without esophagitis Qualified Code(s): K21.9 - Gastro -esophageal reflux disease without esophagitis Is this a current diagnosis for this admission?: Yes (6) Osteoarthritis of left knee Qualifiers: Osteoarthritis type: primary Qualified Code(s): M17.12 - Unilateral primary osteoarthritis, left knee Is this a current diagnosis for this admission?: Yes (7) Chronic pain syndrome Is this a current diagnosis for this admission?: Yes (8) Functional urinary incontinence Is this a current diagnosis for this admission?: Yes (9) E. coli UTI (urinary tract infection) Is this a current diagnosis for this admission?: Yes Plan: D/C IV Meropenem. Start on Vantin 200 mg p.o [id number]. (10) Non-alcoholic fatty liver disease Is this a current diagnosis for this admission?: Yes Plan: Probably related to her diabetes mellitus and morbid obesity. Maintain on Metformin management. - Time Time Spent with patient: 25-34 minutes Medications reviewed and adjusted accordingly: Yes Anticipated discharge: Home with Homehealth Within: Other - Inpatient Certification Based on my medical assessment, after consideration of the patient's comorbidities, presenting symptoms, or acuity I expect that the services needed warrant INPATIENT care.: Yes I certify that my determination is in accordance with my understanding of Medicare's requirements for reasonable and necessary INPATIENT services [42 CFR 412.3e].: Yes Medical Necessity: Need Close Monitoring Due to Risk of Patient Decompensation, Need For IV Fluids, Need For Continuous Telemetry Monitoring, Risk of Complication if Not Cared For in Hospital Post Hospital Care: D/C Special Programs Director Documentation - Plan Summary Plan Summary: See attending physician orders.
[2017-04-25] MEDS: SIMVASTATIN 10 MG TABLET PO SCH (22:36)
[2017-04-25] MEDS: INSULIN GLARGINE,HUM.REC.ANLOG 300 UNIT/3 ML INSULN.PEN SUBCUT SCH (22:36)
[2017-04-26] MEDS: LANSOPRAZOLE 30 MG TAB.RAP.DR PO SCH (05:53)
[2017-04-26] MEDS: CEFPODOXIME 200 MG TABLET PO SCH ×2 (05:53→19:07)
[2017-04-26] MEDS ORDERED: LOPERAMIDE HCL 2 MG CAPSULE PO ONE (09:30)
[2017-04-26] MEDS: INSULIN LISPRO 100 UNIT/ML 3 ML VIAL SUBCUT PRN (10:47)
[2017-04-26] MEDS: SITAGLIPTIN PHOSPHATE 50 MG TABLET PO SCH (10:47)
[2017-04-26] MEDS: ENOXAPARIN SODIUM INJ 40 MG/0.4 ML DISP.SYRIN SUBCUT SCH (10:47)
[2017-04-26] MEDS: RAMIPRIL 10 MG CAPSULE PO SCH (10:48)
[2017-04-26] MEDS: DULOXETINE HCL 30 MG CAPSULE.DR PO SCH (10:49)
[2017-04-26] MEDS: NORMAL SALINE 1000 ML 1,000 ML IV PRN (15:13)
[2017-04-26 17:27] VITALS: BP 127/60
--- NOTE | 2017-04-26 17:55 | PDOC DISCHARGE SUMMARY ---
General - Admit/Disc Date/PCP Admission Date/Primary Care Provider: 04/23/17 15:39 CALDERON JOSUÉ Discharge Date: 04/26/17 - Discharge Diagnosis (1) Uncontrolled type 2 diabetes mellitus Is this a current diagnosis for this admission?: Yes (2) UTI (urinary tract infection) Is this a current diagnosis for this admission?: Yes (3) Morbid obesity with BMI of 45.0-49.9, adult Is this a current diagnosis for this admission?: Yes (4) HTN (hypertension) Is this a current diagnosis for this admission?: Yes (5) GERD (gastroesophageal reflux disease) Is this a current diagnosis for this admission?: Yes (6) Osteoarthritis of left knee Is this a current diagnosis for this admission?: Yes (7) Chronic pain syndrome Is this a current diagnosis for this admission?: Yes (8) Functional urinary incontinence Is this a current diagnosis for this admission?: Yes (9) E. coli UTI (urinary tract infection) Is this a current diagnosis for this admission?: Yes (10) Non-alcoholic fatty liver disease Is this a current diagnosis for this admission?: Yes (11) Diarrhea due to drug Is this a current diagnosis for this admission?: Yes Summary: D/C Metformin. Imodium therapy initiated with good response off Metformin before discharge. - Additional Information Resuscitation Status: Full Code Discharge Diet: Cardiac, Diabetic Discharge Activity: Activity As Tolerated Home Medications: Duloxetine HCl [Cymbalta] 60 mg PO DAILY 04/23/17 Ramipril [Altace 10 mg Capsule] 10 mg PO DAILY 04/23/17 Simvastatin 10 mg PO DAILY 04/23/17 Sitagliptin Phosphate [Januvia] 100 mg PO DAILY 04/23/17 Cefuroxime Axetil [Ceftin 500 mg Tablet] 1 tab PO BID #10 tablet 04/26/17 Insulin Aspart [Novolog Flexpen] 0 unit SUBCUT .SLD SCALE PRN #5 pen 04/26/17 Insulin Glargine,Hum.rec.anlog [Lantus Insulin 100 Unit/mL] 40 unit SUBCUT QHS # 5 insuln.pen 04/26/17 History of Present Illness History of Present Illness: LENY LEW is a 51 year old female known to my practice who presented to the office today with complaints of persistent elevated blood glucose level above 500 mg/dL over the last 2 weeks. She reported associated vulval itching, abdominal pain radiating into her groin, fever, urinary frequency, diarrhea, post void dribbling and malodor to her urine. Patient reported postprandial nausea and occasional vomiting with consumption of fried food. Patient reported left knee swelling and pain with difficulty with walking, standing and participation in ADL. She claimed episodes of near fall incidents. There is associated nocturia, generalized fatigue, weakness, dizziness and frequent headache. Her accucheck in the office revealed glucose level at 427mg/dL and urine dipstick suggested significant glycosuria, positive nitrite trace blood and leukocytes. In view of her presenting symptoms constellations and laboratory findings she was advised hospitalization for further evaluation and management. er morbidities include morbid obesity, dietary noncompliance, Diabetes mellitus type 2, Hypertension., GERD, osteoarthritis, chronic pain syndrome, and functional urinary incontinence. Patient and family admitted to medication compliance. Hospital Course Hospital Course: Patient did respond to IV fluid hydration, Insulin therapy and antibiotic coverage. Her urine culture eventually grew E. coli rudolph sensitive. Her antibiotic was eventually transition to oral Vantin. Her diarrhea was further evaluated with stool c. difficile toxin tire that was reported negative and no WBC seen on smear. As part of her Diabetes mellitus management, she was restarted on Metformin with resultant significant diarrhea. This medication was discontinued and she was given Imodium with satisfactory result. She will be discharge home today with Diabetes management on basal Lantus insulin qhs and Humalog Insulin pre-meal and bedtime sliding scale. She will remain on Januvia therapy. I will refer to [facility] Diabetes teaching program on outpatient. She will be discharge home on Cefuroxime 500 mg po bid x 5 days for completion of her E. coli UTI. She will follow up with me in the office as instructed upon discharge. Physical Exam Vital Signs: Temp Pulse Resp BP Pulse Ox 98.0 F 82 20 144/81 H 94 04/26/17 17:04 04/26/17 17:04 04/26/17 17:04 04/26/17 17:04 04/26/17 17:04 Intake & Output 04/25/17 04/26/17 04/27/17 06:59 06:59 06:59 Intake Total 3512 3920 180 Output Total 980 2280 Balance 2532 1640 180 Weight 139.253 kg General appearance: PRESENT: no acute distress, morbidly obese Head exam: PRESENT: atraumatic, normocephalic Eye exam: PRESENT: conjunctiva pink, EOMI, PERRLA. ABSENT: scleral icterus Ear exam: PRESENT: normal external ear exam Mouth exam: PRESENT: moist Neck exam: PRESENT: full ROM. ABSENT: carotid bruit, JVD, lymphadenopathy, thyromegaly Respiratory exam: PRESENT: clear to auscultation sarah Cardiovascular exam: PRESENT: RRR. ABSENT: diastolic murmur, rubs, systolic murmur Pulses: PRESENT: normal dorsalis pedis pul, +2 pedal pulses bilateral Vascular exam: PRESENT: normal capillary refill. ABSENT: pallor GI/Abdominal exam: PRESENT: normal bowel sounds, soft. ABSENT: distended, guarding, mass, organolmegaly, rebound, tenderness Rectal exam: PRESENT: deferred Extremities exam: ABSENT: pedal edema Musculoskeletal exam: PRESENT: normal inspection Neurological exam: PRESENT: alert, awake, oriented to person, oriented to place , oriented to time, oriented to situation, CN II-XII grossly intact. ABSENT: motor sensory deficit Psychiatric exam: PRESENT: appropriate affect, normal mood. ABSENT: homicidal ideation, suicidal ideation Skin exam: PRESENT: dry, intact, warm. ABSENT: cyanosis, rash Results Laboratory Results: 04/24/17 06:06 04/24/17 06:06 Impressions: Abdomen Ultrasound 04/24/17 08:00 IMPRESSION: FATTY LIVER. NO OTHER SIGNIFICANT FINDING. Qualifiers PATEINT BEING DISCHARGED WITH ANY OF THE FOLLOWING DIAGNOSIS?: No Plan Discharge Plan: D/C home today. Follow up in the office as instructed upon discharge. Time Spent: Greater than 30 Minutes - More than 50% of my dischareg time was spent in patient instruction on insulin usage and administration at home. Post discharge care plan was discussed with her and family at bedside.
== END 2017-04-26 19:18 | disposition home or self-care (01) | DRG 638 ==
LOC: 4S 15:39
PROVIDERS: ADMIT Internal Medicine Geriatric Medicine; ATTEND Internal Medicine Geriatric Medicine
DX: E11.65 Type 2 diabetes mellitus with hyperglycemia (principal); Z68.42 Body mass index [BMI] 45.0-49.9, adult; K52.1 Toxic gastroenteritis and colitis; N30.00 Acute cystitis without hematuria; E66.9 Obesity, unspecified; I10 Essential (primary) hypertension; K21.9 Gastro-esophageal reflux disease without esophagitis; M17.12 Unilateral primary osteoarthritis, left knee; G89.4 Chronic pain syndrome; B96.20 Unspecified Escherichia coli [E. coli] as the cause of diseases classified elsewhere; R39.81 Functional urinary incontinence; K76.0 Fatty (change of) liver, not elsewhere classified; T38.3X5A Adverse effect of insulin and oral hypoglycemic [antidiabetic] drugs, initial encounter; F32.9 Major depressive disorder, single episode, unspecified; F17.210 Nicotine dependence, cigarettes, uncomplicated; Z79.899 Other long term (current) drug therapy; Z79.4 Long term (current) use of insulin; Z91.11 Patient's noncompliance with dietary regimen; Z90.49 Acquired absence of other specified parts of digestive tract; Z90.710 Acquired absence of both cervix and uterus; Z82.49 Family history of ischemic heart disease and other diseases of the circulatory system; Z82.3 Family history of stroke; Z83.3 Family history of diabetes mellitus
CPT/HCPCS: 36415; 76700; 80053; 80061; 81001; 82962; 83036; 85025; 87040; 87045; 87086; 87088; 87186; 87205; 87493; 89055; 93976; J1650; J1815; J2185; J3490; J7030

== ENCOUNTER → 2017-10-09 | Outpatient (CLI) | payer MEDICARE, MEDICAID | LOC: OD 15:35 | PROVIDERS: ATTEND Internal Medicine Geriatric Medicine | DX: N64.3 Galactorrhea not associated with childbirth (principal) | CPT/HCPCS: 36415; 83001; 83002; 84146 ==

== ENCOUNTER 2017-10-11 17:03 | Emergency (ER) | payer MEDICARE, MEDICAID ==
--- NOTE | 2017-10-11 18:04 | ER Document Report ---
ED Medical Screen (RME) - General Chief Complaint: Abdominal Pain Stated Complaint: ABDOMINAL PAIN Time Seen by Provider: 10/11/17 17:59 Notes: RAPID MEDICAL EVALUATION DISCLOSURE I have seen this patient as part of a Rapid Medical Evaluation and, if applicable, placed any initially appropriate orders. The patient will be seen and fully evaluated, including a full history and physical exam, by a provider ( in Main ED or Fast Track) when a room becomes available. 52-year-old female here with complaints of "milk coming out of my breasts and something moving around in my stomach pressure in my vagina and feeling hot between my legs" that has been ongoing for the past 1 month. She is also had some nausea/vomiting but no diarrhea. She has not taken anything for the symptoms. She believes she may be . TRAVEL OUTSIDE OF THE [place] IN LAST 30 DAYS: No - Related Data Allergies/Adverse Reactions: No Known Allergies Allergy (Verified 10/11/17 17:05) Past Medical History - Social History Frequency of alcohol use: None Drug Abuse: None - Past Medical History Cardiac Medical History: Reports: Hx Hypercholesterolemia, Hx Hypertension Pulmonary Medical History: Reports: Hx Bronchitis Neurological Medical History: Endocrine Medical History: Reports: Hx Diabetes Mellitus Type 2 Renal/ Medical History: Reports: Hx Kidney Stones. Denies: Hx Peritoneal Dialysis GI Medical History: Reports: Hx Gastritis, Hx Gastroesophageal Reflux Disease Musculoskeltal Medical History: Reports Hx Arthritis Psychiatric Medical History: Reports: Hx Depression Infectious Medical History: Past Surgical History: Reports: Hx Section - X1, Hx Cholecystectomy, Hx Hysterectomy, Hx Inguinal Hernia - Immunizations Immunizations up to date: No Hx Diphtheria, Pertussis, Tetanus Vaccination: No History of Influenza Vaccine for 02/2017 - 07/2017 Season: Refused Physical Exam - Vital signs Vitals: Temp Pulse Resp BP Pulse Ox 97.4 F 82 18 151/83 H 100 10/11/17 17:11 10/11/17 17:11 10/11/17 17:11 10/11/17 17:11 10/11/17 17:11 Course - Vital Signs Vital signs: Temp Pulse Resp BP Pulse Ox 97.4 F 82 18 151/83 H 100 10/11/17 17:11 10/11/17 17:11 10/11/17 17:11 10/11/17 17:11 10/11/17 17:11
[2017-10-11 19:08] LABS: ALANINE AMINOTRANSFERASE 33 U/L (9-52); ALBUMIN 4.2 g/dL (3.5-5.0); ALKALINE PHOSPHATASE 135 U/L (38-126); ANION GAP 13 (5-19); ASPARTATE AMINO TRANSFERASE 19 U/L (14-36); BILIRUBIN,DIRECT 0.4 mg/dL (0.0-0.4); BILIRUBIN,TOTAL 0.9 mg/dL (0.2-1.3); BLOOD UREA NITROGEN 16 mg/dL (7-20); CARBON DIOXIDE 27 mmol/L (22-30); CHLORIDE 101 mmol/L (98-107); GLUCOSE 105 mg/dL (75-110); LIPASE 43.9 U/L (23-300); POTASSIUM 5.2 mmol/L (3.6-5.0); SODIUM 140.8 mmol/L (137-145); TOTAL PROTEIN 7.4 g/dL (6.3-8.2)
--- NOTE | 2017-10-11 19:43 | ER Document Report ---
ED General - General Chief Complaint: Abdominal Pain Stated Complaint: ABDOMINAL PAIN Time Seen by Provider: 10/11/17 17:59 Notes: Patient is a 52-year-old female with a past surgical history of a partial hysterectomy, chronic medical history of diabetes morbid obesity who presents with 1 month of vaginal pressure, urinary frequency, concerns of as well as feeling like something is moving inside her abdomen. She states that the symptoms started 1 month ago and have been persistent since that time. Nothing improves or worsens her symptoms. She denies any history of similar symptoms in the past. She saw her primary care doctor regarding this concern earlier today who recommended a CT scan but the patient refused stating that she felt like she was and should not have such a study. She then came here to the emergency department. She denies any vomiting, diarrhea, vaginal bleeding or vaginal discharge. She does note some dysuria. TRAVEL OUTSIDE OF THE [place] IN LAST 30 DAYS: No - HPI Onset: Other - 1 month Onset/Duration: Waxing and waning Quality of pain: Cramping Severity: Mild Pain Level: 1 Exacerbated by: Denies Relieved by: Denies Similar symptoms previously: No Recently seen / treated by doctor: No - Related Data Allergies/Adverse Reactions: No Known Allergies Allergy (Verified 10/11/17 17:05) Past Medical History - General Information source: Patient - Social History Smoking Status: Former Smoker Frequency of alcohol use: None Drug Abuse: None Lives with: Spouse/Significant other Family History: CAD, CVA, DM, Hyperlipidemia, Hypertension Patient has suicidal ideation: No Patient has homicidal ideation: No - Past Medical History Cardiac Medical History: Reports: Hx Hypercholesterolemia, Hx Hypertension Pulmonary Medical History: Reports: Hx Bronchitis Neurological Medical History: Endocrine Medical History: Reports: Hx Diabetes Mellitus Type 2 Renal/ Medical History: Reports: Hx Kidney Stones. Denies: Hx Peritoneal Dialysis GI Medical History: Reports: Hx Gastritis, Hx Gastroesophageal Reflux Disease Musculoskeltal Medical History: Reports Hx Arthritis Psychiatric Medical History: Reports: Hx Depression Infectious Medical History: Past Surgical History: Reports: Hx Section - X1, Hx Cholecystectomy, Hx Hysterectomy, Hx Inguinal Hernia - Immunizations Immunizations up to date: No Hx Diphtheria, Pertussis, Tetanus Vaccination: No Review of Systems - Review of Systems Notes: Constitutional: Negative for fever. HENT: Negative for sore throat. Eyes: Negative for visual changes. Cardiovascular: Negative for chest pain. Respiratory: Negative for shortness of breath. Gastrointestinal: Positive for abdominal cramping Genitourinary: Positive for dysuria. Musculoskeletal: Negative for back pain. Skin: Negative for rash. Neurological: Negative for headaches, weakness or numbness. 10 point ROS negative except as marked above and in HPI. Physical Exam - Vital signs Vitals: Temp Pulse Resp BP Pulse Ox 97.4 F 82 18 151/83 H 100 10/11/17 17:11 10/11/17 17:11 10/11/17 17:11 10/11/17 17:11 10/11/17 17:11 Interpretation: Hypertensive Notes: PHYSICAL EXAMINATION: GENERAL: Well-appearing, well-nourished and in no acute distress. HEAD: Atraumatic, normocephalic. EYES: Pupils equal round and reactive to light, extraocular movements intact, sclera anicteric, conjunctiva are normal. ENT: nares patent, oropharynx clear without exudates. Moist mucous membranes. NECK: Normal range of motion, supple without lymphadenopathy LUNGS: Breath sounds clear to auscultation bilaterally and equal. No wheezes rales or rhonchi. HEART: Regular rate and rhythm without murmurs ABDOMEN: Soft, morbidly obese abdomen, nontender, normoactive bowel sounds. No guarding, no rebound. No masses appreciated. EXTREMITIES: Normal range of motion, no pitting or edema. No cyanosis. NEUROLOGICAL: No focal neurological deficits. Moves all extremities spontaneously and on command. PSYCH: Somewhat anxious, seems to disbelieve that she is not . SKIN: Warm, Dry, normal turgor, no rashes or lesions noted. Course - Re-evaluation Re-evalutation: 10/11/17 19:42 Patient presents with multiple vague complaints that did not appear to be concerning for any acute life-threatening pathology. Vitals are within normal limits at triage and at time of discharge. Physical examination is unremarkable. Patient has tolerated oral intake without difficulty. Patient was not noted to be in distress at any point during their ER visit. At this time, based on the reassuring evaluation, I do not suspect an acute WA, pulmonary embolus, aortic dissection, acute intra-abdominal pathology, stroke, or sepsis.Will discharge with return precautions and follow-up recommendations. Verbal discharge instructions given a the bedside and opportunity for questions given. Medication warnings reviewed. Patient is in agreement with this plan and has verbalized understanding of return precautions and the need for primary care follow-up in the next 24-72 hours. - Vital Signs Vital signs: Temp Pulse Resp BP Pulse Ox 97.4 F 82 18 151/83 H 100 10/11/17 17:11 10/11/17 17:11 10/11/17 17:11 10/11/17 17:11 10/11/17 17:11 - Laboratory Result Diagrams: 10/11/17 18:29 10/11/17 18:29 Laboratory results interpreted by me: 10/11/17 10/11/17 18:29 19:00 Potassium 5.2 H Alkaline Phosphatase 135 H Urine Urobilinogen 2.0 H Discharge - Discharge Clinical Impression: Vaginal pain, Breast discharge, Abdominal cramping, Morbid obesity, Bacterial vaginosis Condition: Stable Disposition: HOME, SELF-CARE Additional Instructions: You are being treated for bacterial vaginosis, an overgrowth of normal bacteria in the vagina. You are being sent home on an antibiotic called metronidazole. Take exactly as directed. Never drink alcohol while taking this antibiotic. Please return if you develop abdominal pain, fever greater than 101F, some vomiting, or any other symptoms that are concerning to you. Prescriptions: RX: Metronidazole 500 mg PO BID #14 tablet Referrals: CALDERON MOSES MD [Primary Care Provider] - Follow up as needed
[2017-10-11 20:27] LABS: BACTERIA (WET MOUNT) 4+ BACTERIA SEEN; EPITHELIALS (WET MOUNT) 4+ EPITHELIALS SEEN; T.VAGINALIS (WET MOUNT) COULD NOT PERFORM; WBCS (WET MOUNT) RARE WBCS SEEN; YEAST (WET MOUNT) NO YEAST SEEN
[2017-10-11 20:32] LABS: APPEARANCE,URINE SLIGHTLY-CLOUDY; BILIRUBIN,URINE NEGATIVE (NEGATIVE); COLOR,URINE YELLOW; GLUCOSE, URINE NEGATIVE (NEGATIVE); KETONES,URINE NEGATIVE (NEGATIVE); LEUKOCYTE ESTERASE,URINE NEGATIVE (NEGATIVE); NITRITE,URINE NEGATIVE (NEGATIVE); PROTEIN,URINE NEGATIVE (NEGATIVE); URINE SPECIFIC GRAVITY 1.021
[2017-10-11] MEDS ORDERED: METRONIDAZOLE 500 MG TABLET PO ONE (20:46)
[2017-10-11 21:05] VITALS: BP 149/68
[2017-10-11 21:55] LABS: CHLAM PCR NOT DETECTED (NOT DETECT); GON PCR NOT DETECTED (NOT DETECT)
== END 2017-10-11 21:05 | disposition home or self-care (01) ==
LOC: ER 17:03
DX: R10.2 Pelvic and perineal pain (principal); N64.52 Nipple discharge; R10.9 Unspecified abdominal pain; E66.01 Morbid (severe) obesity due to excess calories; N76.0 Acute vaginitis; R35.0 Frequency of micturition; R11.2 Nausea with vomiting, unspecified; I10 Essential (primary) hypertension; Z68.43 Body mass index [BMI] 50.0-59.9, adult; Z90.710 Acquired absence of both cervix and uterus; Z87.891 Personal history of nicotine dependence; Z87.442 Personal history of urinary calculi; Z90.49 Acquired absence of other specified parts of digestive tract
CPT/HCPCS: 99284; 36415; 87210; 83690; 84703; 80053; 81001; 87491; 87591; A9270

== ENCOUNTER 2017-11-03 19:22 | Emergency (ER) | payer MEDICARE, MEDICAID ==
[2017-11-03] MEDS ORDERED: TETRACAINE HCL 0.5% OPH SOLN 2 ML OU ONE (20:01)
--- NOTE | 2017-11-03 20:05 | ER Document Report ---
ED Medical Screen (RME) - General Chief Complaint: Eye Problem Stated Complaint: EYE PAIN Time Seen by Provider: 11/03/17 20:00 Mode of Arrival: Ambulatory Information source: Patient Notes: This is a 52-year-old female with a history of diabetes and chronic " inflammation". She is followed up at [address] by her nurse ob ( Nikki Yates's office). She states that she ran out of her drops 2 days ago and that she woke up this morning at 8 AM and her eyes were irritating and she could not see out of them. Patient also states she has got appointment with the retina specialist in [place] on November 07. Patient is resistant to my exam in triage. We will send her back, order slit-lamp and tetracaine. I have greeted and performed a rapid initial assessment of this patient. A comprehensive ED assessment and evaluation of the patient, analysis of test results and completion of medical decision making process we will be contacted by additional ED providers. TRAVEL OUTSIDE OF THE [place] IN LAST 30 DAYS: No - Related Data Allergies/Adverse Reactions: No Known Allergies Allergy (Verified 11/03/17 19:37) Past Medical History - Social History Chew tobacco use (# tins/day): No Frequency of alcohol use: None Drug Abuse: None - Past Medical History Cardiac Medical History: Reports: Hx Hypercholesterolemia, Hx Hypertension Pulmonary Medical History: Reports: Hx Bronchitis Neurological Medical History: Endocrine Medical History: Reports: Hx Diabetes Mellitus Type 2 Renal/ Medical History: Reports: Hx Kidney Stones. Denies: Hx Peritoneal Dialysis GI Medical History: Reports: Hx Gastritis, Hx Gastroesophageal Reflux Disease Musculoskeltal Medical History: Reports Hx Arthritis Psychiatric Medical History: Reports: Hx Depression Infectious Medical History: Past Surgical History: Reports: Hx Section - X1, Hx Cholecystectomy, Hx Hysterectomy, Hx Inguinal Hernia - Immunizations Immunizations up to date: No Hx Diphtheria, Pertussis, Tetanus Vaccination: No History of Influenza Vaccine for 02/2017 - 07/2017 Season: Refused Physical Exam - Vital signs Vitals: Temp Pulse Resp BP Pulse Ox 99.0 F 73 18 144/86 H 95 11/03/17 19:31 11/03/17 19:31 11/03/17 19:31 11/03/17 19:31 11/03/17 19:31 Course - Vital Signs Vital signs: Temp Pulse Resp BP Pulse Ox 99.0 F 73 18 144/86 H 95 11/03/17 19:31 11/03/17 19:31 11/03/17 19:31 11/03/17 19:31 11/03/17 19:31 Doctor's Discharge - Discharge Referrals: CALDERON MOSES MD [Primary Care Provider] - Follow up as needed
--- NOTE | 2017-11-03 22:26 | ER Document Report ---
ED Eye Complaint - General Chief Complaint: Eye Problem Stated Complaint: EYE PAIN Time Seen by Provider: 11/03/17 20:00 Mode of Arrival: Ambulatory Notes: patient is a 52-year-old female who presents emergency department via EMS with a chief complaint of eye pain. Patient states that she has history of chronic issues with her eyes since she had cataract surgery back in February and March with lens placements. She has been following with office [facility]. Patient's states that she has been placing 2 drops in her eyes but ran out at the beginning of the month but has not followed up with her portable grinding machine operator. Review of her medications that she brought with her shows evidence of a steroid drop Durezol and ketorolac. While asking patient about her history she is continuously frustrated and not cooperative with answering questions. Patient states that while she has had pain from her eyes she admits to headache today as which why she came in via EMS she describes it as bilateral around her eyes she admits to sensitivity to light. Past medical history significant for uncontrolled and noncompliant type 2 diabetes, UTI history, morbid obesity, hypertension, GERD, chronic pain syndrome , urinary incontinence, fatty liver disease, hyperlipidemia, history of questionable rheumatoid arthritis TRAVEL OUTSIDE OF THE [place] IN LAST 30 DAYS: No - Related Data Allergies/Adverse Reactions: No Known Allergies Allergy (Verified 11/03/17 19:37) Past Medical History - General Information source: Patient - Social History Smoking Status: Never Smoker Chew tobacco use (# tins/day): No Frequency of alcohol use: None Drug Abuse: None Family History: CAD, CVA, DM, Hyperlipidemia, Hypertension Patient has suicidal ideation: No Patient has homicidal ideation: No - Past Medical History Cardiac Medical History: Reports: Hx Hypercholesterolemia, Hx Hypertension Pulmonary Medical History: Reports: Hx Bronchitis Neurological Medical History: Endocrine Medical History: Reports: Hx Diabetes Mellitus Type 2 Renal/ Medical History: Reports: Hx Kidney Stones. Denies: Hx Peritoneal Dialysis GI Medical History: Reports: Hx Gastritis, Hx Gastroesophageal Reflux Disease Musculoskeltal Medical History: Reports Hx Arthritis Psychiatric Medical History: Reports: Hx Depression Infectious Medical History: Past Surgical History: Reports: Hx Section - X1, Hx Cholecystectomy, Hx Hysterectomy, Hx Inguinal Hernia - Immunizations Immunizations up to date: No Hx Diphtheria, Pertussis, Tetanus Vaccination: No Review of Systems - Review of Systems Constitutional: No symptoms reported EENT: Eye pain. denies: Eye discharge, Double vision Cardiovascular: No symptoms reported Respiratory: No symptoms reported Gastrointestinal: No symptoms reported -: Yes All other systems reviewed and negative Physical Exam - Vital signs Vitals: Temp Pulse Resp BP Pulse Ox 99.0 F 73 18 144/86 H 95 11/03/17 19:31 11/03/17 19:31 11/03/17 19:31 11/03/17 19:31 11/03/17 19:31 - General General appearance: Appears well, Alert In distress: None - Patient resting comfortably with her sunglasses and sleeping. Easily arousable - HEENT Head: Normocephalic, Atraumatic Eyes: Other - Patient with injected and edematous conjunctiva. No: Periorbital edema Conjunctiva: Injected. No: Purulent discharge Cornea: Normal Extraocular movements intact: Yes Eyelashes: Normal Pupils: PERRL Lids everted for exam: bilateral: Normal Fundascopic: Other - Not able to assess Nerve palsy: No Visual jimenez normal: No - Patient not able to comply - Cardiovascular Rhythm: Regular Heart sounds: Normal auscultation, S1 appreciated, S2 appreciated Murmur: No Friction rub: No Abhishek's crunch: No Pulses: Normal: Radial Normal capillary refill: Yes - Skin Skin Temperature: Warm Skin Moisture: Dry Skin Color: Normal Skin Turgor: Elastic Course - Re-evaluation Re-evalutation: 11/03/17 22:25 Patient is notoriously noncompliant with following up with office [facility] regarding her chronic inflammation of her eyes. Dr. Santana states that this patient has been noncompliant with recent steroid treatments for her chronic inflammation and she will take incorrectly leaving her with rebound inflammation after she runs out of her drops. She has been referred to multiple retina specialist but has been noncompliant and does not show up to these appointments. At this time he states that there is no benefit to initiating any additional steroid drops and that he will see her at 9 AM in the office. Patient did have relief of her headache after administering tetracaine , Toradol drops and erythromycin ointment. She is agreeable to be discharged home and to follow-up with office [facility] at 9 AM - Vital Signs Vital signs: Temp Pulse Resp BP Pulse Ox 98.9 F 82 18 139/82 H 96 11/03/17 23:26 11/03/17 23:26 11/03/17 23:26 11/03/17 23:26 11/03/17 23:26 Discharge - Discharge Clinical Impression: Conjunctiva disorder Condition: Stable Disposition: HOME, SELF-CARE Additional Instructions: Your presentation today is consistent with your underlying inflammation of your conjunctivae and eyes PERRLA your portable grinding machine operator to follow with you on a regular basis for this. The reason that likely got worse is because he ran out of her steroid drop over the past 10 days and you are having return of your inflammation. Therefore it is recommended he follow-up with your portable grinding machine operator tomorrow at 9 AM. Please be sure to go to [facility] at [address] Santana in the clinic. You have also been sent home with erythromycin ointment. Please apply half-inch to your eyelids 4 times a day. Referrals: CALDERON MOSES MD [Primary Care Provider] - Follow up as needed SHARON SANTANA MD [ACTIVE STAFF] - 11/04/17 9:00 am
[2017-11-03] MEDS ORDERED: KETOROLAC TROMETHAMINE 0.45% 4 DROP/0.4 ML DROPERETTE OU ONE (22:28)
[2017-11-03] MEDS ORDERED: ERYTHROMYCIN 0.5% OPH OINTMENT 3.5 GM (ER DISP) OU PRN (22:29)
[2017-11-03 23:34] VITALS: BP 139/82
== END 2017-11-03 23:35 | disposition home or self-care (01) ==
LOC: ER 19:22
DX: H11.9 Unspecified disorder of conjunctiva (principal); H57.10 Ocular pain, unspecified eye; H53.149 Visual discomfort, unspecified; R51 Headache; I10 Essential (primary) hypertension; E11.9 Type 2 diabetes mellitus without complications; Z96.1 Presence of intraocular lens
CPT/HCPCS: 99283; A9270 ×2

== ENCOUNTER 2018-01-16 22:59 | Emergency (ER) | payer MEDICARE, MEDICAID ==
[2018-01-17] MEDS ORDERED: NORMAL SALINE 500 ML IV ONE (00:21)
[2018-01-17 00:56] LABS: ABSOLUTE BASOPHILS # (AUTO) 0.2 10^3/uL (0.0-0.2); ABSOLUTE EOSINOPHILS # (AUTO) 0.2 10^3/uL (0.0-0.6); ABSOLUTE LYMPHOCYTES (AUTO) 3.1 10^3/uL (0.5-4.7); ABSOLUTE MONOCYTES (AUTO) 0.7 10^3/uL (0.1-1.4); ABSOLUTE NEUT (AUTO) 6.9 10^3/uL (1.7-8.2); BASOPHILS % (AUTO) 1.6 % (0-2); EOSINOPHILS % (AUTO) 2.1 % (0-6); HEMATOCRIT 40.4 % (36.0-47.0); HEMOGLOBIN 13.2 g/dL (12.0-15.5); MEAN CORPUSCULAR HEMOGLOBIN 27.6 pg (27.0-33.4); MEAN CORPUSCULAR HGB CONC 32.7 g/dL (32.0-36.0); MEAN CORPUSCULAR VOLUME 84 fl (80-97); PLATELET COUNT 614 10^3/uL (150-450); RED BLOOD COUNT 4.79 10^6/uL (3.72-5.28); RED CELL DISTRIBUTION WIDTH 15.7 % (11.5-14.0); SEGMENTED NEUTROPHILS % (AUTO) 62.3 % (42-78); TOTAL CELLS COUNTED % (AUTO) 100 %; WHITE BLOOD COUNT 11.1 10^3/uL (4.0-10.5)
[2018-01-17 02:22] LABS: ALANINE AMINOTRANSFERASE 35 U/L (9-52); ALBUMIN 4.2 g/dL (3.5-5.0); ALKALINE PHOSPHATASE 114 U/L (38-126); ANION GAP 15 (5-19); ASPARTATE AMINO TRANSFERASE 19 U/L (14-36); BILIRUBIN,DIRECT 0.3 mg/dL (0.0-0.4); BILIRUBIN,TOTAL 0.5 mg/dL (0.2-1.3); BLOOD UREA NITROGEN 20 mg/dL (7-20); CALCIUM 10.1 mg/dL (8.4-10.2); CARBON DIOXIDE 25 mmol/L (22-30); CHLORIDE 104 mmol/L (98-107); GLUCOSE 128 mg/dL (75-110); POTASSIUM 4.8 mmol/L (3.6-5.0); SODIUM 143.5 mmol/L (137-145); TOTAL PROTEIN 7.6 g/dL (6.3-8.2)
--- NOTE | 2018-01-17 02:53 | RADIOLOGY REPORT (SQ) ---
EXAM DESCRIPTION: CT ABDOMEN WITHOUT IV CONTRAST COMPLETED DATE/TME: 01/17/2018 00:54 CLINICAL HISTORY: R flank pain, COMPARISON: None Available. TECHNIQUE: CT of the abdomen and pelvis without IV contrast. Evaluation of the solid organs and vasculature is suboptimal due to lack of IV contrast. DLP: 1384.21 mGy-cm FINDINGS: Lung Bases: The visualized lung bases are clear. Bones: No destructive bone lesions identified. Endplate spondylosis. Abdomen: Liver: The liver has normal size and decreased density. Gallbladder: Prior cholecystectomy. Spleen, Pancreas, and Adrenal Glands: The spleen, pancreas, and adrenal glands are unremarkable. Kidneys: The kidneys have normal size and contour without evidence of hydronephrosis. No obstructing ureteral calculi. Vasculature: The aorta and IVC have normal caliber and position. Stomach: The stomach and duodenum have normal course. Other: No free intraperitoneal air. No free fluid or lymphadenopathy. Small fat-containing umbilical hernia. Pelvis: Bladder: Urinary bladder is unremarkable. Bowel: No dilated loops of large or small bowel. Appendix: Normal appendix. Pelvis: Uterus is not enlarged. IMPRESSION: 1. No acute inflammatory or obstructive process identified. 2. Hepatic steatosis. This exam was performed according to our departmental dose-optimization program, which includes automated exposure control, adjustment of the mA and/or kV according to patient size and/or use of iterative reconstruction technique.
--- NOTE | 2018-01-17 03:30 | ER Document Report ---
ED GI/ - General Mode of Arrival: Ambulatory Information source: Patient TRAVEL OUTSIDE OF THE [place] IN LAST 30 DAYS: No <ADRIANA PITTMAN - Last Filed: 01/17/18 05:18> <REG PICKARD - Last Filed: 01/17/18 06:30> - General Chief Complaint: Flank Pain Stated Complaint: FLANK PAIN Time Seen by Provider: 01/17/18 00:20 Notes: Patient is a 52-year-old female presents to the emergency department today with complaints of right flank pain and urinary frequency. Patient denies any abdominal pain, nausea, vomiting, or diarrhea. Patient has had UTIs in the past and her symptoms are similar to previous UTIs. (ADRIANA PITTMAN) - Related Data Allergies/Adverse Reactions: No Known Allergies Allergy (Verified 11/03/17 19:37) Past Medical History - General Information source: Patient - Social History Smoking Status: Never Smoker Cigarette use (# per day): No Family History: Reviewed & Not Pertinent, CAD, CVA, DM, Hyperlipidemia, Hypertension - Past Medical History Cardiac Medical History: Reports: Hx Hypercholesterolemia, Hx Hypertension Pulmonary Medical History: Reports: Hx Bronchitis Neurological Medical History: Endocrine Medical History: Reports: Hx Diabetes Mellitus Type 2 Renal/ Medical History: Reports: Hx Kidney Stones. Denies: Hx Peritoneal Dialysis GI Medical History: Reports: Hx Gastritis, Hx Gastroesophageal Reflux Disease Musculoskeletal Medical History: Reports Hx Arthritis Psychiatric Medical History: Reports: Hx Depression Infectious Medical History: Past Surgical History: Reports: Hx Section - X1, Hx Cholecystectomy, Hx Hysterectomy, Hx Inguinal Hernia - Immunizations Immunizations up to date: No Hx Diphtheria, Pertussis, Tetanus Vaccination: No <ADRIANA PITTMAN - Last Filed: 01/17/18 05:18> Review of Systems - Review of Systems Constitutional: No symptoms reported EENT: No symptoms reported Cardiovascular: No symptoms reported Respiratory: No symptoms reported Gastrointestinal: No symptoms reported Genitourinary: See HPI, Frequency, Flank pain - Right Female Genitourinary: No symptoms reported Musculoskeletal: No symptoms reported Skin: No symptoms reported Hematologic/Lymphatic: No symptoms reported Neurological/Psychological: No symptoms reported -: Yes All other systems reviewed and negative <ADRIANA PITTMAN - Last Filed: 01/17/18 05:18> Physical Exam - Vital signs Interpretation: Normal - General General appearance: Appears well, Alert - HEENT Head: Normocephalic, Atraumatic Eyes: Normal Pupils: PERRL - Respiratory Respiratory status: No respiratory distress Chest status: Nontender Breath sounds: Normal Chest palpation: Normal - Cardiovascular Rhythm: Regular Heart sounds: Normal auscultation Murmur: No - Abdominal Inspection: Normal Distension: No distension Bowel sounds: Normal Tenderness: Nontender Organomegaly: No organomegaly - Back Back: Normal, Tender - R - Extremities General upper extremity: Normal inspection, Nontender, Normal color, Normal ROM , Normal temperature General lower extremity: Normal inspection, Nontender, Normal color, Normal ROM , Normal temperature, Normal weight bearing. No: Sailaja's sign - Neurological Neuro grossly intact: Yes Cognition: Normal Orientation: AAOx4 [place] Coma Scale Eye Opening: Spontaneous [place] Coma Scale Verbal: Oriented [place] Coma Scale Motor: Obeys Commands Delvin Coma Scale Total: 15 Speech: Normal Motor strength normal: LUE, RUE, LLE, RLE Sensory: Normal - Psychological Associated symptoms: Normal affect, Normal mood - Skin Skin Temperature: Warm Skin Moisture: Dry Skin Color: Normal <REG PICKARD - Last Filed: 01/17/18 06:30> - Vital signs Vitals: Temp Pulse Resp BP Pulse Ox 98.3 F 83 16 146/100 H 99 01/16/18 22:59 01/16/18 22:59 01/16/18 22:59 01/16/18 22:59 01/16/18 22:59 Course - Laboratory Result Diagrams: 01/17/18 00:40 01/17/18 01:55 <ADRIANA PITTMAN - Last Filed: 01/17/18 05:18> - Laboratory Result Diagrams: 01/17/18 00:40 01/17/18 01:55 <REG PICKARD - Last Filed: 01/17/18 06:30> - Re-evaluation Re-evalutation: 01/17/18 06:04 Patient is a 52-year-old female who comes in complaining of flank pain and frequent urination. She has had a history of UTIs in the past. Urine with possible urinary tract infection. Urine will be sent for culture. Patient feels better after Toradol. She has been given a dose of Rocephin and will be discharged home with Keflex. She is to call her doctor today for an appointment on Saturday. Understands and agrees with plan. Stable for discharge. (REG PICKARD) - Vital Signs Vital signs: Temp Pulse Resp BP Pulse Ox 98.3 F 83 16 146/100 H 99 01/16/18 22:59 01/16/18 22:59 01/16/18 22:59 01/16/18 22:59 01/16/18 22:59 - Laboratory Laboratory results interpreted by me: 01/17/18 01/17/18 01/17/18 00:40 01:30 01:55 WBC 11.1 H RDW 15.7 H Plt Count 614 H Glucose 128 H Urine Urobilinogen 2.0 H Ur Leukocyte Esterase TRACE H Discharge <ADRIANA PITTMAN - Last Filed: 01/17/18 05:18> <REG PICKARD - Last Filed: 01/17/18 06:30> - Discharge Clinical Impression: UTI (urinary tract infection) Qualifiers: Urinary tract infection type: site unspecified Hematuria presence: with hematuria Qualified Code(s): N39.0 - Urinary tract infection, site not specified ; R31.9 - Hematuria, unspecified; R31.9 - Hematuria, unspecified Condition: Stable Disposition: HOME, SELF-CARE Instructions: Urinary Tract Infection ([facility]) Prescriptions: Cephalexin Monohydrate [Keflex 500 mg Capsule] 500 mg PO Q6H 10 Days capsule Forms: Elevated Blood Pressure Referrals: CALDERON MOSES MD [Primary Care Provider] - 01/20/18 Scribe Attestation: 01/17/18 06:30 I personally performed the services described in the documentation, reviewed and edited the documentation which was dictated to the scribe in my presence, and it accurately records my words and actions. (REG PICKARD) Scribe Documentation - Scribe Written by Mary:: Mary Varela, 01/17/2018 0522 acting as scribe for :: Etienne <ADRIANA PITTMAN - Last Filed: 01/17/18 05:18>
[2018-01-17 03:40] LABS: APPEARANCE,URINE SLIGHTLY-CLOUDY; BILIRUBIN,URINE NEGATIVE (NEGATIVE); COLOR,URINE YELLOW; GLUCOSE, URINE NEGATIVE (NEGATIVE); KETONES,URINE NEGATIVE (NEGATIVE); LEUKOCYTE ESTERASE,URINE TRACE (NEGATIVE); NITRITE,URINE NEGATIVE (NEGATIVE); PROTEIN,URINE NEGATIVE (NEGATIVE); URINE SPECIFIC GRAVITY 1.013
[2018-01-17] MEDS ORDERED: CEFTRIAXONE 1 GM/D5W RTU 1 GM/50 ML RTUPB IV ONE (04:00)
[2018-01-17] MEDS ORDERED: CEFTRIAXONE INJ 1000 MG VIAL ONE (04:20)
[2018-01-17] MEDS ORDERED: KETOROLAC TROMETHAMINE INJ/PF 30 MG/1 ML SDV IV ONE (05:12)
[2018-01-17] MEDS ORDERED: HYDROCODONE/ACETAMINOPHEN 5-325 MG (6 TAB/ER DISP) PO PRN (06:05)
[2018-01-17 06:45] VITALS: BP 132/70
--- NOTE | 2018-01-17 09:00 | EKG REPORT ---
SEVERITY:- NORMAL ECG - SINUS RHYTHM : Confirmed by: Bernarda Recio 17-Jan-2018 08:59:43
== END 2018-01-17 07:02 | disposition home or self-care (01) ==
LOC: ER 22:59
DX: N39.0 Urinary tract infection, site not specified (principal); R31.9 Hematuria, unspecified; R10.9 Unspecified abdominal pain; R35.0 Frequency of micturition; I10 Essential (primary) hypertension; E11.9 Type 2 diabetes mellitus without complications; Z87.442 Personal history of urinary calculi
CPT/HCPCS: 93005; 99285; 96361; 96375; 96365; 36415; 87086; 85025; 87088; 80053; 81001; 87186; 76380; 93010; J1885; J7040; J0696; A9270

== ENCOUNTER → 2018-03-04 | Outpatient (CLI) | payer MEDICARE, MEDICAID ==
--- NOTE | 2018-03-04 17:39 | RADIOLOGY REPORT (SQ) ---
EXAM DESCRIPTION: CERV SP 4 OR 5 VIEWS COMPLETED DATE/TIME: 03/04/2018 5:07 pm REASON FOR STUDY: R20.0 ANESTHESIA OF SKIN R20.0 ANESTHESIA OF SKIN COMPARISON: None. NUMBER OF VIEWS: 6 views including obliques. TECHNIQUE: AP, lateral, swimmer's lateral, obliques and odontoid radiographic images acquired of the cervical spine. LIMITATIONS: Positioning. FINDINGS: MINERALIZATION: Normal. SEGMENTATION: Normal. ALIGNMENT: Normal. VERTEBRAE: Maintained height. No fracture or worrisome bone lesion. DISCS: Multilevel disc space narrowing with osteophytes. POSTERIOR ELEMENTS: Pedicles and facets are intact. No posterior arch defects. Facet arthropathy is present. FORAMINA: Narrowed at the levels of maximal disc and facet disease. HARDWARE: None in the spine. PARASPINAL SOFT TISSUES: Normal. OTHER: No other significant finding. IMPRESSION: SPONDYLOSIS WITHOUT BONE LESION OR FRACTURE. TECHNICAL DOCUMENTATION: JOB ID: [id number] [email or web address]- All Rights Reserved Reading location - IP/workstation name: [email or web address]
== END ==
LOC: RAD 16:42
PROVIDERS: ATTEND Internal Medicine Geriatric Medicine
DX: R20.0 Anesthesia of skin (principal); M47.892 Other spondylosis, cervical region
CPT/HCPCS: 72050

== ENCOUNTER 2018-03-08 13:34 | Emergency (ER) | payer MEDICARE, MEDICAID ==
--- NOTE | 2018-03-08 14:30 | ER Document Report ---
HPI - HPI Patient complains to provider of: The alf sent me because I had diarrhea Onset: Other - Saturday and Saturday Quality of pain: No pain Pain Level: 5 Context: 52-year-old female was sent here by the homeless alf because she had diarrhea on Saturday or Saturday. She has no abdominal pain or diarrhea today. She had a formed stool yesterday. No nausea or vomiting. No fever. She also has chronic right shoulder pain. She needs a note to say that she can go back to the alf that she is not contagious. Associated Symptoms: None Exacerbated by: Denies Relieved by: Denies Similar symptoms previously: No Recently seen / treated by doctor: No - ROS ROS below otherwise negative: Yes Systems Reviewed and Negative: Yes All other systems reviewed and negative - REPRODUCTIVE Reproductive: DENIES: : Past Medical History - General Information source: Patient - Social History Smoking Status: Unknown if Ever Smoked Lives with: [facility] Family History: Reviewed & Not Pertinent, CAD, CVA, DM, Hyperlipidemia, Hypertension - Past Medical History Cardiac Medical History: Reports: Hx Hypercholesterolemia, Hx Hypertension Pulmonary Medical History: Reports: Hx Bronchitis Neurological Medical History: Endocrine Medical History: Reports: Hx Diabetes Mellitus Type 2 Renal/ Medical History: Reports: Hx Kidney Stones. Denies: Hx Peritoneal Dialysis GI Medical History: Reports: Hx Gastritis, Hx Gastroesophageal Reflux Disease Musculoskeletal Medical History: Reports Hx Arthritis Psychiatric Medical History: Reports: Hx Depression Infectious Medical History: Past Surgical History: Reports: Hx Section - X1, Hx Cholecystectomy, Hx Hysterectomy, Hx Inguinal Hernia - Immunizations Immunizations up to date: No Hx Diphtheria, Pertussis, Tetanus Vaccination: No Vertical Provider Document - CONSTITUTIONAL Agree With Documented VS: Yes Exam Limitations: No Limitations - INFECTION CONTROL TRAVEL OUTSIDE OF THE [place] IN LAST 30 DAYS: No - HEENT HEENT: Normal ENT Exam, Normocephalic - NECK Neck: Supple. negative: Lymphadenopathy-Left, Lymphadenopathy-Right - RESPIRATORY Respiratory: Breath Sounds Normal, No Respiratory Distress - CARDIOVASCULAR Cardiovascular: Regular Rate, Regular Rhythm - GI/ABDOMEN Gastrointestinal: Abdomen Soft, Abdomen Non-Tender, No Organomegaly Notes: Obese - BACK Back: Normal Inspection. negative: CVA Tenderness-Right, CVA Tenderness-Left - MUSCULOSKELETAL/EXTREMETIES Musculoskeletal/Extremeties: Tender - superior right shoulder, no deformity,not red or hot Notes: limits ROM due to chronic shouler pain - NEURO Level of Consciousness: Alert, Appropriate - DERM Integumentary: No Rash Course - Vital Signs Vital signs: Temp Pulse Resp BP Pulse Ox 98.6 F 95 14 149/90 H 96 03/08/18 13:38 03/08/18 13:38 03/08/18 13:38 03/08/18 13:38 03/08/18 13:38 Discharge - Discharge Clinical Impression: Chronic right shoulder pain, resolved diarrhea Condition: Good Disposition: HOME, SELF-CARE Instructions: Acetaminophen, Myalagia (Muscle Pain) ([facility]) Additional Instructions: you no longer have diarrhea, you are not contagious you do not have any abdominal tenderness tylenol for the right shoulder pain you may return to the homeless alf Referrals: CALDERON MOSES MD [Primary Care Provider] - Follow up as needed
[2018-03-08 15:28] VITALS: BP 155/77
== END 2018-03-08 15:23 | disposition home or self-care (01) ==
LOC: ER 13:34
DX: R19.7 Diarrhea, unspecified (principal); M25.511 Pain in right shoulder; E78.00 Pure hypercholesterolemia, unspecified; I10 Essential (primary) hypertension; E11.9 Type 2 diabetes mellitus without complications; Z59.0 Homelessness; Z87.442 Personal history of urinary calculi; Z90.49 Acquired absence of other specified parts of digestive tract; Z90.710 Acquired absence of both cervix and uterus
CPT/HCPCS: 99283

== ENCOUNTER 2018-04-24 22:14 | Emergency (ER) | payer MEDICARE, MEDICAID ==
[2018-04-25 01:13] LABS: APPEARANCE,URINE CLOUDY; BILIRUBIN,URINE NEGATIVE (NEGATIVE); COLOR,URINE YELLOW; GLUCOSE, URINE NEGATIVE (NEGATIVE); KETONES,URINE NEGATIVE (NEGATIVE); LEUKOCYTE ESTERASE,URINE NEGATIVE (NEGATIVE); NITRITE,URINE NEGATIVE (NEGATIVE); PROTEIN,URINE 30 mg/dL (NEGATIVE); URINE SPECIFIC GRAVITY 1.023
[2018-04-25 01:26] LABS: BACTERIA (WET MOUNT) 4+ BACTERIA SEEN; EPITHELIALS (WET MOUNT) 3+ EPITHELIALS SEEN; T.VAGINALIS (WET MOUNT) NO TRICHOMONAS SEEN; WBCS (WET MOUNT) RARE WBCS SEEN; YEAST (WET MOUNT) NO YEAST SEEN
--- NOTE | 2018-04-25 01:38 | ER Document Report ---
ED General - General Chief Complaint: Urinary Problem Stated Complaint: URINARY CONCERNS Time Seen by Provider: 04/24/18 23:24 Notes: Patient is a 52-year-old female presenting to the emergency department complaining of urinary frequency and vaginal itching. Patient states she has had both of these complaints intermittently for the last month. Patient denies any dysuria or urinary incontinence. Patient is also complaining of intermittent chills and suprapubic abdominal pain. Patient denies any vomiting , diarrhea, fever. Past medical history: Diabetes, hyperlipidemia, hypertension Medications: Metformin, Januvia, ramipril, omeprazole Allergies: None TRAVEL OUTSIDE OF THE [place] IN LAST 30 DAYS: No - Related Data Allergies/Adverse Reactions: No Known Allergies Allergy (Verified 03/08/18 13:34) Past Medical History - General Information source: Patient - Social History Smoking Status: Unknown if Ever Smoked Lives with: Family Family History: Reviewed & Not Pertinent, CAD, CVA, DM, Hyperlipidemia, Hypertension - Past Medical History Cardiac Medical History: Reports: Hx Hypercholesterolemia, Hx Hypertension Pulmonary Medical History: Reports: Hx Bronchitis Neurological Medical History: Endocrine Medical History: Reports: Hx Diabetes Mellitus Type 2 Renal/ Medical History: Reports: Hx Kidney Stones. Denies: Hx Peritoneal Dialysis GI Medical History: Reports: Hx Gastritis, Hx Gastroesophageal Reflux Disease Musculoskeletal Medical History: Reports Hx Arthritis Psychiatric Medical History: Reports: Hx Depression Infectious Medical History: Past Surgical History: Reports: Hx Section - X1, Hx Cholecystectomy, Hx Hysterectomy, Hx Inguinal Hernia - Immunizations Immunizations up to date: No Hx Diphtheria, Pertussis, Tetanus Vaccination: No Review of Systems - Review of Systems Constitutional: Chills. denies: Fever EENT: No symptoms reported Cardiovascular: No symptoms reported Respiratory: No symptoms reported Gastrointestinal: See HPI Genitourinary: See HPI Female Genitourinary: See HPI Musculoskeletal: No symptoms reported Skin: No symptoms reported Hematologic/Lymphatic: No symptoms reported Neurological/Psychological: No symptoms reported Physical Exam - Vital signs Vitals: Temp Pulse Resp BP Pulse Ox 98.2 F 81 16 154/91 H 95 04/24/18 22:35 04/24/18 22:35 04/24/18 22:35 04/24/18 22:35 04/24/18 22:35 - Notes Notes: GENERAL: Alert, interacts well. No acute distress. HEAD: Normocephalic, atraumatic. EYES: Pupils equal, round, and reactive to light. Extraocular movements intact. ENT: Oral mucosa moist, tongue midline. NECK: Full range of motion. Supple. Trachea midline. LUNGS: Clear to auscultation bilaterally, no wheezes, rales, or rhonchi. No respiratory distress. HEART: Regular rate and rhythm. No murmur ABDOMEN: Obese, soft, non-tender. Non-distended. Bowel sounds present in all 4 quadrants. Mild suprapubic tenderness upon palpation EXTREMITIES: Moves all 4 extremities spontaneously. No edema, normal radial and dorsalis pedis pulses bilaterally. No cyanosis. BACK: no cervical, thoracic, lumbar midline tenderness. No saddle anesthesia, normal distal neurovascular exam. NEUROLOGICAL: Alert and oriented x3. Normal speech. cranial nerves II through XII grossly intact. PSYCH: Normal affect, normal mood. SKIN: Warm, dry, normal turgor. No rashes or lesions noted. PELVIC: malodourous white. yellow tinged d/c in cul-de-sac, no cervical motion tenderness, no adnexal tenderness bilaterally. Course - Re-evaluation Re-evalutation: 04/25/18 01:43 Patient denies being sexually active does not want to be tested for gonorrhea and chlamydia. 04/25/18 01:49 Discussed bacterial vaginosis diagnosis with patient. Discussed treatment with Flagyl. Patient states she has already called her primary care provider immediate appointment for tomorrow morning. Discussed continuing with follow- up. Return precautions discussed. Urine sent for culture. No signs of infection at this time. - Vital Signs Vital signs: Temp Pulse Resp BP Pulse Ox 98.2 F 81 16 154/91 H 95 04/24/18 22:35 04/24/18 22:35 04/24/18 22:35 04/24/18 22:35 04/24/18 22:35 - Laboratory Laboratory results interpreted by me: 04/25/18 04/25/18 00:52 00:54 POC Glucose 149 H Urine Protein 30 H Urine Urobilinogen 2.0 H Discharge - Discharge Clinical Impression: Bacterial vaginosis Condition: Stable Disposition: HOME, SELF-CARE Instructions: Vaginosis, Bacterial ([facility]) Additional Instructions: As we discussed you have been seen and treated in the emergency department for bacterial vaginosis. Your urine currently shows no signs of infection. It is sent to the lab for a culture. Should it grow bacteria the hospital will call you and you will be started on oral antibiotics. At this point in time you should take antibiotics as prescribed for the bacterial vaginosis. Please do not take medication with alcohol. Please take medication with food. Please return to the emergency room for any other concerning symptoms. Please make an appointment with your primary care provider in the next 24-48 hours. Prescriptions: Metronidazole [Flagyl 500 mg Tablet] 500 mg PO BID #14 tablet Referrals: CALDERON MOSES MD [Primary Care Provider] - Follow up as needed
[2018-04-25 02:27] VITALS: BP 145/76
== END 2018-04-25 02:35 | disposition home or self-care (01) ==
LOC: ER 22:14
DX: N76.0 Acute vaginitis (principal); B96.89 Other specified bacterial agents as the cause of diseases classified elsewhere; R10.9 Unspecified abdominal pain; R68.83 Chills (without fever); E11.9 Type 2 diabetes mellitus without complications; I10 Essential (primary) hypertension; E78.5 Hyperlipidemia, unspecified; E78.00 Pure hypercholesterolemia, unspecified; Z79.84 Long term (current) use of oral hypoglycemic drugs; Z79.899 Other long term (current) drug therapy; F32.9 Major depressive disorder, single episode, unspecified; Z90.79 Acquired absence of other genital organ(s)
CPT/HCPCS: 81001; 82962; 87086; 87210; 99283

== ENCOUNTER 2018-07-19 11:45 | Emergency (ER) | payer MEDICARE, MEDICAID ==
[2018-07-19 12:12] VITALS: BP 166/100
--- NOTE | 2018-07-19 13:53 | ER Document Report ---
ED Hip Pain/Injury - General Chief Complaint: Hip Pain Stated Complaint: HIP PAIN Time Seen by Provider: 07/19/18 12:53 Primary Care Provider: [facility] [Provider Group] - Follow up as needed CALDERON MOSES MD [Primary Care Provider] - Follow up as needed Mode of Arrival: Wheelchair Information source: Patient Notes: 53-year-old female presents to ED for complaint of right hip pain due to bursitis. She states she has not had any new injuries in the falls or anything else but she has a long history of bursitis and she has received steroid injections in the past when she gets bad pain in her hip. She states she does have a history of high blood pressure high cholesterol and diabetes and is on metformin and Januvia as well as Lantus insulin. She states she does not have an orthopedic to go to to get joint injections but she comes to the emergency room about every year or so and gets a IM injection of steroids. TRAVEL OUTSIDE OF THE [place] IN LAST 30 DAYS: No - HPI Patient complains to provider of: Pain, Hip Occurred: Other - Chronic long-term Onset/Duration: Intermittent Quality of pain: Burning, Sharp, Throbbing Severity: Severe Pain Level: 5 Context: Other - Long time chronic Symptoms prior to fall: None Symptoms since fall: None Skin Color: Normal Skin Temperature: Warm Rotation of extremity: None Pain with palpation of the pelvis: Yes - Hip joint Associated Symptoms: None - Related Data Allergies/Adverse Reactions: No Known Allergies Allergy (Verified 07/19/18 11:51) Past Medical History - General Information source: Patient - Social History Smoking Status: Never Smoker Frequency of alcohol use: None Drug Abuse: None Lives with: Family Family History: Reviewed & Not Pertinent, CAD, CVA, DM, Hyperlipidemia, Hypertension Patient has suicidal ideation: No Patient has homicidal ideation: No - Past Medical History Cardiac Medical History: Reports: Hx Hypercholesterolemia, Hx Hypertension Pulmonary Medical History: Reports: Hx Bronchitis EENT Medical History: Reports: None Neurological Medical History: Reports: None Endocrine Medical History: Reports: Hx Diabetes Mellitus Type 2 Renal/ Medical History: Reports: Hx Kidney Stones Malignancy Medical History: Reports: None GI Medical History: Reports: Hx Gastritis, Hx Gastroesophageal Reflux Disease Musculoskeletal Medical History: Reports Hx Arthritis, Reports Other - Bursitis Skin Medical History: Reports None Psychiatric Medical History: Reports: Hx Depression Traumatic Medical History: Reports: None Infectious Medical History: Reports: None Past Surgical History: Reports: Hx Section - X1, Hx Cholecystectomy, Hx Hysterectomy, Hx Inguinal Hernia - Immunizations Immunizations up to date: No Hx Diphtheria, Pertussis, Tetanus Vaccination: No Review of Systems - Review of Systems Constitutional: No symptoms reported EENT: No symptoms reported Cardiovascular: No symptoms reported Respiratory: No symptoms reported Gastrointestinal: No symptoms reported Genitourinary: No symptoms reported Female Genitourinary: No symptoms reported Musculoskeletal: Joint pain - Right hip. denies: Joint swelling Skin: No symptoms reported Hematologic/Lymphatic: No symptoms reported Neurological/Psychological: No symptoms reported -: Yes All other systems reviewed and negative Physical Exam - Vital signs Vitals: Temp Pulse Resp BP Pulse Ox 97.7 F 97 18 166/100 H 99 07/19/18 12:06 07/19/18 12:06 07/19/18 12:06 07/19/18 12:06 07/19/18 12:06 Interpretation: Normal - General General appearance: Appears well, Alert - HEENT Head: Normocephalic, Atraumatic Eyes: Normal Pupils: PERRL - Respiratory Respiratory status: No respiratory distress Chest status: Nontender Breath sounds: Normal Chest palpation: Normal - Cardiovascular Rhythm: Regular Heart sounds: Normal auscultation Murmur: No - Abdominal Inspection: Normal Distension: No distension Bowel sounds: Normal Tenderness: Nontender Organomegaly: No organomegaly - Back Back: Normal, Nontender - Extremities General upper extremity: Normal inspection, Nontender, Normal color, Normal ROM, Normal temperature General lower extremity: Normal inspection, Normal color, Normal ROM, Normal temperature. No: Sailaja's sign Hip: Tender, Pain with ROM. No: Abrasion, Deformity, Dislocation, Ecchymosis, Instability, Laceration - Neurological Neuro grossly intact: Yes Cognition: Normal Orientation: AAOx4 [place] Coma Scale Eye Opening: Spontaneous [place] Coma Scale Verbal: Oriented [place] Coma Scale Motor: Obeys Commands [place] Coma Scale Total: 15 Speech: Normal Motor strength normal: LUE, RUE, LLE, RLE Sensory: Normal - Psychological Associated symptoms: Normal affect, Normal mood - Skin Skin Temperature: Warm Skin Moisture: Dry Skin Color: Normal Course - Re-evaluation Re-evalutation: 07/19/18 21:18 X-rays completed which showed no acute injuries to the hip. Patient was given the steroid injection after her Accu-Chek was less than 200. Patient was instr ucted to limit what she eats and drinks as it will increase her sugar. Patient was instructed to please follow-up with her primary care doctor and orthopedics concerning her bursitis. Patient verbalized understanding and agreement with treatment plan before she was discharged. Patient was discharged home. - Vital Signs Vital signs: Temp Pulse Resp BP Pulse Ox 97.7 F 97 18 166/100 H 99 07/19/18 12:06 07/19/18 12:06 07/19/18 12:06 07/19/18 12:06 07/19/18 12:06 - Laboratory Laboratory results interpreted by me: 07/19/18 13:12 POC Glucose 148 H - Diagnostic Test Radiology reviewed: Image reviewed, Reports reviewed Discharge - Discharge Clinical Impression: Right hip pain Condition: Stable Disposition: HOME, SELF-CARE Additional Instructions: Bursitis You have been diagnosed as having bursitis. Bursitis is an inflammation of a fluid pouch (bursa) found near joints. This is usually due to repeated minor irritation, or pressure directly on the bursa. On occasion, the bursitis can be due to infection (your doctor has checked for this). Sometimes the doctor decides to remove the fluid from the bursa with a needle. This may be to examine the fluid for infection or to ease the pressure caused by the fluid. The usual treatment is rest, local warmth, (or cold if the bursitis is caused by an acute injury), and antiinflammatory medication. Occasionally, an injection of cortisone is necessary. You should call the doctor for re-examination if the pain increases significantly, or if the area becomes severely swollen and red, or fever develops. STEROID MEDICATION: You have been given an injection of medicine of the cortisone/steroid class. This medication is used to control inflammation or allergy. It is often continued as a pill for a short period of time, until the acute process subsides. There are usually no side effects from short-term use of cortisone-like medications. Some persons feel an increased sense of well-being and are not sleepy at bedtime. Long-term use of cortisone medications is best avoided, unless required for a severe condition. If your condition does not remit, or relapses after the course of corticosteroid medication, you should consult your physician. Acetaminophen Acetaminophen may be taken for pain relief or fever control. It's much safer than aspirin, offering a wider range of "safe" dosages. It is safe during . Some brand names are Tylenol, Panadol, Datril, Anacin 3, Tempra, and Liquiprin. Acetaminophen can be repeated every four hours. The following are maximum recommended dosages: WEIGHT Dose Drops Elixir Chewable(80mg) (LBS.) drprs=droppers tsp=teaspoon 6 40 mg .4 ml (1/2) 6-11 80 mg .8 ml (full) 1/2 tsp 1 tab 12-16 120 mg 1 1/2 drprs 3/4 tsp 1 1/2 tabs 17-23 160 mg 2 drprs 1 tsp 2 tabs 24-30 240 mg 3 drprs 1 1/2 tsp 3 tabs 30-35 320 mg 2 tsp 4 tabs 36-41 360 mg 2 1/4 tsp 4 1/2 tabs 42-47 400 mg 2 1/2 tsp 5 tabs 48-53 480 mg 3 tsp 6 tabs 54-59 520 mg 3 1/4 tsp 6 1/2 tabs 60-64 560 mg 3 1/2 tsp 7 tabs 65-70 600 mg 3 3/4 tsp 7 1/2 tabs 71-76 640 mg 4 tsp 8 tabs 77-82 720 mg 4 1/2 tsp 9 tabs 83-88 800 mg 5 tsp 10 tabs >89 pounds or adults 650 mg to 900 mg Acetaminophen can be repeated every four hours. Maximum daily dose not to exceed 4000 mg. These maximum recommended dosages are slightly higher than the dosages written on the product container, but these dosages are very safe and well below the toxic dosage for acetaminophen. Ice Packs Apply ice packs frequently against the painful area. Many different schedules are recommended, such as "20 minutes on, 20 minutes off" or "one hour ice, two hours rest." If you need to work, you may need to go longer between ice treatments. You should plan to have the area ice packed AT LEAST one fourth of the time. The ice should be applied over the wrap, tape, or splint, or over a layer of cloth -- not directly against the skin. Some ice bags have a built-in cloth and can be put directly on the skin. Warm Packs After approximately two days, apply gentle heat (such as a heating pad or hot water bottle) for about 20 to 30 minutes about every two hours -- at least four times daily. Warmth and elevation will help you make a more rapid recovery, and will ease the pain considerably. Do not use HOT heat, and never apply heat for longer than 30 minutes. The continuous heat can invisibly damage skin and muscles -- even when no burn is seen on the surface. Damaged muscles can make you MORE sore. FOLLOW-UP CARE: If you have been referred to a physician for follow-up care, call the physicians office for an appointment as you were instructed or within the next two days. If you experience worsening or a significant change in your symptoms, notify the physician immediately or return to the Emergency Department at any time for re-evaluation. Forms: Elevated Blood Pressure Referrals: CALDERON MOSES MD [Primary Care Provider] - Follow up as needed [facility] [Provider Group] - Follow up as needed
--- NOTE | 2018-07-19 14:09 | RADIOLOGY REPORT (SQ) ---
EXAM DESCRIPTION: HIP RIGHT AP/LATERAL COMPLETED DATE/TIME: 07/19/2018 1:55 pm REASON FOR STUDY: pain in right hip COMPARISON: 10/16/2015 NUMBER OF VIEWS: Two views. TECHNIQUE: AP pelvis and additional frog-leg view of the right hip. LIMITATIONS: None. FINDINGS: MINERALIZATION: Normal. RIGHT HIP: No fracture or dislocation. No worrisome bone lesions. LEFT HIP: No fracture or dislocation. No worrisome bone lesions. PUBIS AND ISCHIUM: No fracture. PELVIS: No fracture. SACRUM: No fracture or dislocation. No worrisome bone lesions. LOWER LUMBAR SPINE: Spondylosis. SOFT TISSUES: No findings. OTHER: No other significant finding. IMPRESSION: NO RADIOGRAPHIC EVIDENCE OF ACUTE INJURY. TECHNICAL DOCUMENTATION: JOB ID: [id number] [employer]- All Rights Reserved Reading location - IP/workstation name: [email or web address]
[2018-07-19] MEDS ORDERED: DEXAMETHASONE SOD PHOS INJ 10 MG/1 ML VIAL IM ONE (14:29)
[2018-07-19] MEDS ORDERED: ACETAMINOPHEN 325 MG TABLET PO ONE (14:29)
== END 2018-07-19 15:12 | disposition home or self-care (01) ==
LOC: ER 11:45
DX: M70.71 Other bursitis of hip, right hip (principal); M25.551 Pain in right hip; I10 Essential (primary) hypertension; E11.9 Type 2 diabetes mellitus without complications
CPT/HCPCS: 99283; 82962; 73502; A9270; J1100

== ENCOUNTER 2018-07-24 16:31 | Emergency (ER) | payer MEDICARE, MEDICAID ==
--- NOTE | 2018-07-24 17:02 | ER Document Report ---
ED Medical Screen (RME) - General Chief Complaint: Knee Pain Stated Complaint: LEFT KNEE PAIN Time Seen by Provider: 07/24/18 16:56 Primary Care Provider: CALDERON MOSES MD [Primary Care Provider] - Follow up as needed TRAVEL OUTSIDE OF THE [place] IN LAST 30 DAYS: No - HPI Notes: 07/24/18 16:59 Patient is a 53-year-old female currently homeless with medical history of diabetes, hypertension, hyperlipidemia, obesity, arthritis who presents emergency department complaining of left knee pain which she has had before and lower extremity edema which is new for her. Patient states that over the last couple days her legs have become very swollen. She does not take any fluid medications. Patient states that she also urinated on herself twice today, but did feel the urge to go initially. Patient states that she has been having trouble walking because of the pain in her knee. She otherwise has not had any chest pain, shortness of breath, dyspnea on exertion, low back pain. Denies any headache, fever, neck pain, URI, sore throat, chest pain, palpitations, syncope, cough, shortness of breath, wheeze, dyspnea, abdominal pain, nausea/vomiting/diarrhea, numbness/tingling, saddle anesthesia, muscle paralysis, or rash. I have treated and performed a rapid initial assessment of this patient. A comprehensive ED assessment and evaluation of the patient, analysis of test results and completion of medical decision making process will be conducted by additional ED providers. PHYSICAL EXAMINATION: GENERAL: Well-appearing, well-nourished and in no acute distress. A&Ox4. Answers questions appropriately. Pt's pants are wet from urine. LUNGS: Breath sounds clear to auscultation bilaterally and equal. No wheezes rales or rhonchi. HEART: Regular rate and rhythm without murmurs, rubs, gallops. Extremities: b/l LE edema. No calf tenderness or asymmetry. NEUROLOGICAL: Normal speech, normal gait. PSYCH: Normal mood, normal affect. - Related Data Allergies/Adverse Reactions: No Known Allergies Allergy (Verified 07/24/18 16:34) Past Medical History - Past Medical History Cardiac Medical History: Reports: Hx Hypercholesterolemia, Hx Hypertension Pulmonary Medical History: Reports: Hx Bronchitis Neurological Medical History: Endocrine Medical History: Reports: Hx Diabetes Mellitus Type 2 Renal/ Medical History: Reports: Hx Kidney Stones GI Medical History: Reports: Hx Gastritis, Hx Gastroesophageal Reflux Disease Musculoskeltal Medical History: Reports Hx Arthritis Psychiatric Medical History: Reports: Hx Depression Infectious Medical History: Past Surgical History: Reports: Hx Section - X1, Hx Cholecystectomy, Hx Hysterectomy, Hx Inguinal Hernia - Immunizations Immunizations up to date: No Hx Diphtheria, Pertussis, Tetanus Vaccination: No History of Influenza Vaccine for 02/2017 - 07/2017 Season: Refused Physical Exam - Vital signs Vitals: Temp Pulse Resp BP Pulse Ox 97.9 F 68 18 168/91 H 96 07/24/18 16:42 07/24/18 16:42 07/24/18 16:42 07/24/18 16:42 07/24/18 16:42 Course - Vital Signs Vital signs: Temp Pulse Resp BP Pulse Ox 97.9 F 68 18 168/91 H 96 07/24/18 16:42 07/24/18 16:42 07/24/18 16:42 07/24/18 16:42 07/24/18 16:42 Doctor's Discharge - Discharge Referrals: CALDERON MOSES MD [Primary Care Provider] - Follow up as needed
[2018-07-24 17:33] LABS: ABSOLUTE BASOPHILS # (AUTO) 0.1 10^3/uL (0.0-0.2); ABSOLUTE EOSINOPHILS # (AUTO) 0.1 10^3/uL (0.0-0.6); ABSOLUTE MONOCYTES (AUTO) 0.6 10^3/uL (0.1-1.4); ABSOLUTE NEUT (AUTO) 7.4 10^3/uL (1.7-8.2); BASOPHILS % (AUTO) 0.5 % (0-2); EOSINOPHILS % (AUTO) 1.2 % (0-6); HEMATOCRIT 38.1 % (36.0-47.0); HEMOGLOBIN 12.9 g/dL (12.0-15.5); LYMPHOCYTES % (AUTO) 26.6 % (13-45); MEAN CORPUSCULAR HEMOGLOBIN 27.7 pg (27.0-33.4); MEAN CORPUSCULAR HGB CONC 33.8 g/dL (32.0-36.0); MEAN CORPUSCULAR VOLUME 82 fl (80-97); MONOCYTES % (AUTO) 5.1 % (3-13); PLATELET COUNT 626 10^3/uL (150-450); RED BLOOD COUNT 4.65 10^6/uL (3.72-5.28); RED CELL DISTRIBUTION WIDTH 16.6 % (11.5-14.0); SEGMENTED NEUTROPHILS % (AUTO) 66.6 % (42-78); TOTAL CELLS COUNTED % (AUTO) 100 %; WHITE BLOOD COUNT 11.1 10^3/uL (4.0-10.5)
--- NOTE | 2018-07-24 17:46 | RADIOLOGY REPORT (SQ) ---
EXAM DESCRIPTION: CHEST SINGLE VIEW COMPLETED DATE/TIME: 07/24/2018 5:27 pm REASON FOR STUDY: LE edema COMPARISON: 04/04/2017 EXAM PARAMETERS: NUMBER OF VIEWS: One view. TECHNIQUE: Single frontal radiographic view of the chest acquired. RADIATION DOSE: NA LIMITATIONS: None. FINDINGS: LUNGS AND PLEURA: No opacities, masses or pneumothorax. No pleural effusion. MEDIASTINUM AND HILAR STRUCTURES: No masses. Contour normal. HEART AND VASCULAR STRUCTURES: Heart normal in size. Normal vasculature. BONES: No acute findings. HARDWARE: None in the chest. OTHER: No other significant finding. IMPRESSION: NO ACUTE RADIOGRAPHIC FINDING IN THE CHEST. TECHNICAL DOCUMENTATION: JOB ID: [id number] [employer]- All Rights Reserved Reading location - IP/workstation name: [email or web address]
[2018-07-24 17:47] LABS: ALANINE AMINOTRANSFERASE 27 U/L (9-52); ALKALINE PHOSPHATASE 100 U/L (38-126); ANION GAP 7 (5-19); ASPARTATE AMINO TRANSFERASE 21 U/L (14-36); BILIRUBIN,DIRECT 0.3 mg/dL (0.0-0.4); BILIRUBIN,TOTAL 0.5 mg/dL (0.2-1.3); BLOOD UREA NITROGEN 18 mg/dL (7-20); CALCIUM 9.6 mg/dL (8.4-10.2); CARBON DIOXIDE 28 mmol/L (22-30); CHLORIDE 108 mmol/L (98-107); GLUCOSE 96 mg/dL (75-110); POTASSIUM 4.4 mmol/L (3.6-5.0); SODIUM 143.1 mmol/L (137-145); TOTAL PROTEIN 6.7 g/dL (6.3-8.2)
--- NOTE | 2018-07-24 17:47 | RADIOLOGY REPORT (SQ) ---
EXAM DESCRIPTION: KNEE LEFT 4 VIEW COMPLETED DATE/TIME: 07/24/2018 5:27 pm REASON FOR STUDY: lt knee pain COMPARISON: None. NUMBER OF VIEWS: Four views. TECHNIQUE: AP, lateral, and both oblique radiographic images acquired of the left knee. LIMITATIONS: None. FINDINGS: MINERALIZATION: Normal. BONES: No acute fracture or dislocation. No worrisome bone lesions. JOINT: Narrowing of the medial compartment with marginal osteophytes. Marked narrowing of the patell ofemoral compartment with prominent posterior patellar and trochlear osteophytes. SOFT TISSUES: No soft tissue swelling. No radio-opaque foreign body. OTHER: No other significant finding. IMPRESSION: Degenerative joint disease. TECHNICAL DOCUMENTATION: JOB ID: [id number] [employer]- All Rights Reserved Reading location - IP/workstation name: [email or web address]
[2018-07-24] MEDS ORDERED: LIDOCAINE 5% (700 MG) TRANSDERMAL ADH..PATCH TP ONE (18:28)
[2018-07-24] MEDS ORDERED: OXYCODONE-ACETAMINOPHEN 5-325 MG TABLET PO ONE (18:29)
--- NOTE | 2018-07-24 18:31 | ER Document Report ---
ED General - General Chief Complaint: Knee Pain Stated Complaint: LEFT KNEE PAIN Time Seen by Provider: 07/24/18 16:56 Primary Care Provider: [facility] [Provider Group] - Follow up as needed [facility] [Provider Group] - Follow up as needed CALDERON MOSES MD [Primary Care Provider] - Follow up as needed Mode of Arrival: Medic Information source: Patient Notes: Patient presents complaining of left knee pain for the past week. Patient states that she has had some urinary frequency and has had some urge incontinence. Patient states she has had incontinence of urine in the past therefore she is always worn pads but states that symptoms seem to be worse especially with attempting to get to the bathroom in a timely manner with her knee pain. TRAVEL OUTSIDE OF THE [place] IN LAST 30 DAYS: No - HPI Onset: Last week Onset/Duration: Persistent Quality of pain: Achy Pain Level: 5 Associated symptoms: Other - Urinary frequency. denies: Chest pain, Nonproductive cough, Productive cough, Fever, Nausea, Rhinnorhea Exacerbated by: Movement, Walking Relieved by: Denies Similar symptoms previously: Yes Recently seen / treated by doctor: No - Related Data Allergies/Adverse Reactions: No Known Allergies Allergy (Verified 07/24/18 16:34) Past Medical History - General Information source: Patient - Social History Smoking Status: Current Every Day Smoker Frequency of alcohol use: None Drug Abuse: None Lives with: Homeless Family History: Reviewed & Not Pertinent, CAD, CVA, DM, Hyperlipidemia, Hypertension Patient has suicidal ideation: No Patient has homicidal ideation: No - Past Medical History Cardiac Medical History: Reports: Hx Hypercholesterolemia, Hx Hypertension Pulmonary Medical History: Reports: Hx Bronchitis Neurological Medical History: Endocrine Medical History: Reports: Hx Diabetes Mellitus Type 2 Renal/ Medical History: Reports: Hx Kidney Stones. Denies: Hx Peritoneal Dialysis GI Medical History: Reports: Hx Gastritis, Hx Gastroesophageal Reflux Disease Musculoskeletal Medical History: Reports Hx Arthritis Psychiatric Medical History: Reports: Hx Depression Infectious Medical History: Past Surgical History: Reports: Hx Section - X1, Hx Cholecystectomy, Hx Hysterectomy, Hx Inguinal Hernia - Immunizations Immunizations up to date: No Hx Diphtheria, Pertussis, Tetanus Vaccination: No Review of Systems - Review of Systems Constitutional: No symptoms reported. denies: Fever, Recent illness EENT: No symptoms reported Cardiovascular: Edema - Bilateral lower extremities Respiratory: No symptoms reported. denies: Cough Gastrointestinal: No symptoms reported. denies: Abdominal pain, Nausea, Vomiting Genitourinary: Frequency, Incontinence, Urgency. denies: Dysuria Female Genitourinary: No symptoms reported Musculoskeletal: Joint pain - Left knee joint Skin: No symptoms reported Hematologic/Lymphatic: No symptoms reported Neurological/Psychological: No symptoms reported Physical Exam - Vital signs Vitals: Temp Pulse Resp BP Pulse Ox 97.9 F 68 18 168/91 H 96 07/24/18 16:42 07/24/18 16:42 07/24/18 16:42 07/24/18 16:42 07/24/18 16:42 - General General appearance: Appears well, Alert In distress: None - HEENT Head: Normocephalic, Atraumatic Eyes: Normal Conjunctiva: Normal Nasal: Normal Mouth/Lips: Normal Neck: Normal, Supple. No: Lymphadenopathy - Respiratory Respiratory status: No respiratory distress Chest status: Nontender Breath sounds: Normal. No: Rales, Rhonchi, Stridor Chest palpation: Normal - Cardiovascular Rhythm: Regular Heart sounds: S1 appreciated, S2 appreciated Murmur: No Pulses: Normal: Dorsalis pedis - Back Back: Tender - Right lumbar paraspinal tenderness. No: CVA tenderness - Extremities General upper extremity: Normal inspection, Normal ROM General lower extremity: Edema - 3+, Normal ROM, Normal weight bearing Knee: Tender - Left knee joint tenderness anterior compartment as well as popliteal area, no erythema, no calor, patient able to ambulate without assistance, Pain with ROM, Patellar tendon intact. No: Instability, Joint effusion, Laxity with valgus stress, Laxity with varus stress, Unable to bear weight - Neurological Neuro grossly intact: Yes Cognition: Normal [place] Coma Scale Eye Opening: Spontaneous [place] Coma Scale Verbal: Oriented [place] Coma Scale Motor: Obeys Commands [place] Coma Scale Total: 15 - Psychological Associated symptoms: Normal affect, Normal mood - Skin Skin Temperature: Warm Skin Moisture: Dry Skin Color: Normal Course - Re-evaluation Re-evalutation: 07/24/18 19:02 Patient with left knee pain with arthritic changes noted on x-ray. No concern for septic arthritis or dislocation. Patient with a history of stress incontinence and leakage that she feels is worsened today. Patient states she has had difficulty getting to the bathroom due to urinary frequency in addition to having an increase in her left knee pain. Patient's urinalysis without any findings worrisome for UTI at this time. Patient encouraged to follow-up with orthopedics as well as a community theater actor for further evaluation of her stress incontinence as well as chronic arthritic knee pain. No concern for congestive heart failure, pt without any vascular congestion symptoms noted on x-ray, no elevation in her BNP tests at this time. - Vital Signs Vital signs: Temp Pulse Resp BP Pulse Ox 97.9 F 75 18 166/92 H 96 07/24/18 19:42 07/24/18 19:42 07/24/18 19:42 07/24/18 19:42 07/24/18 19:42 - Laboratory Result Diagrams: 07/24/18 17:10 07/24/18 17:10 Laboratory results interpreted by me: 07/24/18 07/24/18 17:10 17:10 WBC 11.1 H RDW 16.6 H Plt Count 626 H Chloride 108 H 07/24/18 19:04 Labs- Entire Visit 07/24/18 07/24/18 07/24/18 17:10 17:10 17:10 WBC 11.1 H RBC 4.65 Hgb 12.9 Hct 38.1 MCV 82 MCH 27.7 MCHC 33.8 RDW 16.6 H Plt Count 626 H Seg Neutrophils % 66.6 Lymphocytes % 26.6 Monocytes % 5.1 Eosinophils % 1.2 Basophils % 0.5 Absolute Neutrophils 7.4 Absolute Lymphocytes 3.0 Absolute Monocytes 0.6 Absolute Eosinophils 0.1 Absolute Basophils 0.1 Sodium 143.1 Potassium 4.4 Chloride 108 H Carbon Dioxide 28 Anion Gap 7 BUN 18 Creatinine 0.66 Est GFR ( Amer) > 60 Est GFR (Non-Af Amer) > 60 Glucose 96 Calcium 9.6 Total Bilirubin 0.5 Direct Bilirubin 0.3 Neonat Total Bilirubin Not Reportable Neonat Direct Bilirubin Not Reportable Neonat Indirect Bili Not Reportable AST 21 ALT 27 Alkaline Phosphatase 100 NT-Pro-B Natriuret Pep 180 Total Protein 6.7 Albumin 4.0 Urine Color Urine Appearance Urine pH Ur Specific [place] Urine Protein Urine Glucose (UA) Urine Ketones Urine Blood Urine Nitrite Urine Bilirubin Urine Urobilinogen Ur Leukocyte Esterase Urine WBC (Auto) Urine RBC (Auto) Squamous Epi Cells Auto Urine Mucus (Auto) Urine Ascorbic Acid 07/24/18 18:33 WBC RBC Hgb Hct MCV MCH MCHC RDW Plt Count Seg Neutrophils % Lymphocytes % Monocytes % Eosinophils % Basophils % Absolute Neutrophils Absolute Lymphocytes Absolute Monocytes Absolute Eosinophils Absolute Basophils Sodium Potassium Chloride Carbon Dioxide Anion Gap BUN Creatinine Est GFR ( Amer) Est GFR (Non-Af Amer) Glucose Calcium Total Bilirubin Direct Bilirubin Neonat Total Bilirubin Neonat Direct Bilirubin Neonat Indirect Bili AST ALT Alkaline Phosphatase NT-Pro-B Natriuret Pep Total Protein Albumin Urine Color YELLOW Urine Appearance SLIGHTLY-CLOUDY Urine pH 5.0 Ur Specific [place] 1.021 Urine Protein NEGATIVE Urine Glucose (UA) NEGATIVE Urine Ketones NEGATIVE Urine Blood NEGATIVE Urine Nitrite NEGATIVE Urine Bilirubin NEGATIVE Urine Urobilinogen NEGATIVE Ur Leukocyte Esterase NEGATIVE Urine WBC (Auto) 1 Urine RBC (Auto) 0 Squamous Epi Cells Auto 4 Urine Mucus (Auto) RARE Urine Ascorbic Acid NEGATIVE - Diagnostic Test Radiology reviewed: Image reviewed, Reports reviewed Discharge - Discharge Clinical Impression: Urge incontinence, Arthritis Left knee pain Qualifiers: Chronicity: unspecified Qualified Code(s): M25.562 - Pain in left knee Condition: Stable Disposition: HOME, SELF-CARE Instructions: Arthritis ([facility]), Oral Narcotic Medication ([facility]), Urinary Incontinence ([facility]) Additional Instructions: Follow-up with your primary doctor as planned. You will need a referral to community theater actor for further evaluation of your incontinence issues as well as referral to orthopedics for further management of your arthritic knee pain. Return as needed for any new or worsening symptoms Prescriptions: Oxycodone HCl/Acetaminophen [Percocet 5-325 mg Tablet] 1 tab PO ASDIR PRN #8 tablet PRN Reason: Referrals: CALDERON MOSES MD [Primary Care Provider] - Follow up as needed [facility] [Provider Group] - Follow up as needed [facility] [Provider Group] - Follow up as needed
[2018-07-24 18:55] LABS: APPEARANCE,URINE SLIGHTLY-CLOUDY; BILIRUBIN,URINE NEGATIVE (NEGATIVE); COLOR,URINE YELLOW; GLUCOSE, URINE NEGATIVE (NEGATIVE); KETONES,URINE NEGATIVE (NEGATIVE); LEUKOCYTE ESTERASE,URINE NEGATIVE (NEGATIVE); NITRITE,URINE NEGATIVE (NEGATIVE); PROTEIN,URINE NEGATIVE (NEGATIVE); URINE SPECIFIC GRAVITY 1.021; UROBILINOGEN,URINE NEGATIVE mg/dL (<2.0)
[2018-07-24 19:45] VITALS: BP 166/92
== END 2018-07-24 20:00 | disposition home or self-care (01) ==
LOC: ER 16:31
DX: M25.562 Pain in left knee (principal); N39.41 Urge incontinence; R35.0 Frequency of micturition; M19.90 Unspecified osteoarthritis, unspecified site; F17.200 Nicotine dependence, unspecified, uncomplicated; E78.00 Pure hypercholesterolemia, unspecified; I10 Essential (primary) hypertension; Z87.442 Personal history of urinary calculi; Z90.49 Acquired absence of other specified parts of digestive tract; Z90.710 Acquired absence of both cervix and uterus
CPT/HCPCS: 99284; 36415; 87086; 85025; 80053; 81001; 83880; 71045; 73564; A9270

== ENCOUNTER 2018-08-09 12:24 | Emergency (ER) | payer MEDICARE, MEDICAID ==
--- NOTE | 2018-08-09 13:05 | ER Document Report ---
ED Medical Screen (RME) - General Chief Complaint: Swelling of Lower Extremity Stated Complaint: BACK PAIN Time Seen by Provider: 08/09/18 12:59 Primary Care Provider: CALDERON MOSES MD [Primary Care Provider] - Follow up as needed Notes: RAPID MEDICAL EVALUATION DISCLOSURE I have seen this patient as part of a Rapid Medical Evaluation and, if applicable, placed any initially appropriate orders. The patient will be seen and fully evaluated, including a full history and physical exam, by a provider (in Main ED or Fast Track) when a room becomes available. 53-year-old female PMH diabetes here with complaints of some midsternal chest pain ongoing for the past 2 days. Yesterday she did have some shortness of breath as well as bilateral lower extremity swelling "that came out of nowhere". She has not tried anything for the symptoms. She denies any previous CHF history. EXAM CTAB RRR Lower extremity edema, bilateral TRAVEL OUTSIDE OF THE [place] IN LAST 30 DAYS: No - Related Data Allergies/Adverse Reactions: No Known Allergies Allergy (Verified 08/09/18 12:25) Past Medical History - Past Medical History Cardiac Medical History: Reports: Hx Hypercholesterolemia, Hx Hypertension Pulmonary Medical History: Reports: Hx Bronchitis Neurological Medical History: Endocrine Medical History: Reports: Hx Diabetes Mellitus Type 2 Renal/ Medical History: Reports: Hx Kidney Stones. Denies: Hx Peritoneal Dialysis GI Medical History: Reports: Hx Gastritis, Hx Gastroesophageal Reflux Disease Musculoskeltal Medical History: Reports Hx Arthritis Psychiatric Medical History: Reports: Hx Depression Infectious Medical History: Past Surgical History: Reports: Hx Section - X1, Hx Cholecystectomy, Hx Hysterectomy, Hx Inguinal Hernia - Immunizations Immunizations up to date: No Hx Diphtheria, Pertussis, Tetanus Vaccination: No History of Influenza Vaccine for 02/2017 - 07/2017 Season: Refused Physical Exam - Vital signs Vitals: Temp Pulse Resp BP Pulse Ox 97.9 F 80 18 153/73 H 98 08/09/18 12:35 08/09/18 12:35 08/09/18 12:35 08/09/18 12:35 08/09/18 12:35 Course - Vital Signs Vital signs: Temp Pulse Resp BP Pulse Ox 97.9 F 80 18 153/73 H 98 08/09/18 12:35 08/09/18 12:35 08/09/18 12:35 08/09/18 12:35 08/09/18 12:35 Doctor's Discharge - Discharge Referrals: CALDERON MOSES MD [Primary Care Provider] - Follow up as needed
--- NOTE | 2018-08-09 14:08 | RADIOLOGY REPORT (SQ) ---
EXAM DESCRIPTION: CHEST 2 VIEWS COMPLETED DATE/TIME: 08/09/2018 1:59 pm REASON FOR STUDY: SOB CP COMPARISON: 07/24/2018 EXAM PARAMETERS: NUMBER OF VIEWS: two views TECHNIQUE: Digital Frontal and Lateral radiographic views of the chest acquired. RADIATION DOSE: NA LIMITATIONS: none FINDINGS: LUNGS AND PLEURA: No opacities, masses or pneumothorax. No pleural effusion. MEDIASTINUM AND HILAR STRUCTURES: No masses or contour abnormalities. HEART AND VASCULAR STRUCTURES: Heart normal size. No evidence for failure. BONES: No acute findings. HARDWARE: None in the chest. OTHER: No other significant finding. IMPRESSION: NO ACUTE RADIOGRAPHIC FINDING IN THE CHEST. TECHNICAL DOCUMENTATION: JOB ID: [id number] [employer]- All Rights Reserved Reading location - IP/workstation name: [email or web address]
[2018-08-09 14:10] LABS: APPEARANCE,URINE CLOUDY; BILIRUBIN,URINE NEGATIVE (NEGATIVE); COLOR,URINE YELLOW; GLUCOSE, URINE NEGATIVE (NEGATIVE); KETONES,URINE NEGATIVE (NEGATIVE); LEUKOCYTE ESTERASE,URINE TRACE (NEGATIVE); NITRITE,URINE NEGATIVE (NEGATIVE); PROTEIN,URINE NEGATIVE (NEGATIVE); URINE SPECIFIC GRAVITY 1.018
[2018-08-09 14:13] LABS: ABSOLUTE BASOPHILS # (AUTO) 0.1 10^3/uL (0.0-0.2); ABSOLUTE EOSINOPHILS # (AUTO) 0.1 10^3/uL (0.0-0.6); ABSOLUTE LYMPHOCYTES (AUTO) 1.7 10^3/uL (0.5-4.7); ABSOLUTE MONOCYTES (AUTO) 0.5 10^3/uL (0.1-1.4); ABSOLUTE NEUT (AUTO) 7.2 10^3/uL (1.7-8.2); BASOPHILS % (AUTO) 0.7 % (0-2); EOSINOPHILS % (AUTO) 0.8 % (0-6); HEMATOCRIT 37.2 % (36.0-47.0); HEMOGLOBIN 12.6 g/dL (12.0-15.5); LYMPHOCYTES % (AUTO) 17.5 % (13-45); MEAN CORPUSCULAR HEMOGLOBIN 27.6 pg (27.0-33.4); MEAN CORPUSCULAR HGB CONC 33.9 g/dL (32.0-36.0); MEAN CORPUSCULAR VOLUME 82 fl (80-97); MONOCYTES % (AUTO) 5.1 % (3-13); PLATELET COUNT 648 10^3/uL (150-450); RED BLOOD COUNT 4.56 10^6/uL (3.72-5.28); RED CELL DISTRIBUTION WIDTH 17.4 % (11.5-14.0); SEGMENTED NEUTROPHILS % (AUTO) 75.9 % (42-78); TOTAL CELLS COUNTED % (AUTO) 100 %; WHITE BLOOD COUNT 9.5 10^3/uL (4.0-10.5)
[2018-08-09] MEDS ORDERED: IPRATROPIUM/ALBUTEROL 0.5-2.5 MG/3 ML AMPUL NEB ONE (14:15)
[2018-08-09] MEDS ORDERED: KETOROLAC TROMETHAMINE INJ/PF 30 MG/1 ML SDV IV ONE (14:15)
[2018-08-09 14:19] LABS: ALANINE AMINOTRANSFERASE 23 U/L (9-52); ALBUMIN 4.5 g/dL (3.5-5.0); ALKALINE PHOSPHATASE 88 U/L (38-126); ANION GAP 11 (5-19); ASPARTATE AMINO TRANSFERASE 20 U/L (14-36); BILIRUBIN,DIRECT 0.2 mg/dL (0.0-0.4); BILIRUBIN,TOTAL 0.4 mg/dL (0.2-1.3); BLOOD UREA NITROGEN 16 mg/dL (7-20); CALCIUM 10.1 mg/dL (8.4-10.2); CARBON DIOXIDE 27 mmol/L (22-30); CHLORIDE 103 mmol/L (98-107); GLUCOSE 97 mg/dL (75-110); POTASSIUM 4.5 mmol/L (3.6-5.0); SODIUM 141.1 mmol/L (137-145); TOTAL PROTEIN 7.1 g/dL (6.3-8.2)
--- NOTE | 2018-08-09 14:26 | ER Document Report ---
ED General - General Chief Complaint: Swelling of Lower Extremity Stated Complaint: BACK PAIN Time Seen by Provider: 08/09/18 12:59 Primary Care Provider: CALDERON MOSES MD [Primary Care Provider] - Follow up in 3-5 days TRAVEL OUTSIDE OF THE [place] IN LAST 30 DAYS: No - HPI Notes: Patient is a 53-year-old female that presents to the emergency department for chief complaint of bilateral lower extremity edema and pain. Patient reports yesterday she started having cramping in her lower extremities and today noticed edema. She denies any significant edema in her legs in the past. She denies recent surgery, travel, immobilization, estrogen use and history of DVT/PE. She states she has never had her legs ultrasounded. She has not taken any medication at home for pain. She states the pain is a tingling needle sensation in the back of her legs down into her feet. She does state that for 2 days she has had tightness in her chest. She localizes the tightness to her midsternal and right parasternal region. She does endorse occasional tobacco and states she has required breathing treatments in the past but is not sure if she has a history of COPD or not. She denies recent fevers, chills, palpitations, lightheadedness, nausea, vomiting, abdominal pain, numbness and weakness. Past Medical History: Diabetes Past Surgical History: Reviewed in chart Social History: Occasional tobacco. Denies drug and alcohol use Family History: Reviewed and noncontributory for presenting illness Allergies: Reviewed, see documented allergy list. REVIEW OF SYSTEMS: CONSTITUTIONAL : No fever No chills No diaphoresis No recent illness EENT: No vision changes congestion No sore throat CARDIOVASCULAR: chest pain No palpitations RESPIRATORY: shortness of breath No cough No difficulty breathing GASTROINTESTINAL: No abdominal pain No nausea No vomiting No diarrhea GENITOURINARY: No dysuria No hematuria No difficulty urinating MUSCULOSKELETAL: No back pain leg pain No arm pain SKIN: No rashes No lesions LYMPHATIC: No swollen, enlarged glands. NEUROLOGICAL: No lightheadedness No headache No weakness No paresthesias PSYCHIATRIC: No anxiety No depression PHYSICAL EXAMINATION: Vital signs reviewed, nursing noted reviewed. GENERAL: Well-appearing, obese and in no acute distress. HEAD: Atraumatic, normocephalic. EYES: Eyes appear normal, extraocular movements intact, sclera anicteric, conjunctiva are normal. ENT: nares patent, oropharynx clear without exudates. Moist mucous membranes. NECK: Normal range of motion, supple without lymphadenopathy LUNGS: Breath sounds wheezing to auscultation bilaterally. No accessory muscle use. Mild prolonged expiratory phase. No tachypnea. HEART: Regular rate and rhythm without murmurs ABDOMEN: Soft, nontender, normoactive bowel sounds. No rebound, guarding, or rigidity. No masses appreciated. EXTREMITIES: good range of motion, +2 pitting edema bilateral lower extremities from the ankles to feet with tenderness to palpation. No overlying erythema or rash NEUROLOGICAL: No focal neurological deficits. Moves all extremities spontaneously Motor and sensory grossly intact on exam. PSYCH: Normal mood, normal affect. SKIN: Warm, Dry, normal turgor, no rashes or lesions noted on exposed skin - Related Data Allergies/Adverse Reactions: No Known Allergies Allergy (Verified 08/09/18 12:25) Past Medical History - Social History Smoking Status: Current Every Day Smoker Family History: Reviewed & Not Pertinent, CAD, CVA, DM, Hyperlipidemia, Hypertension Patient has suicidal ideation: No Patient has homicidal ideation: No - Past Medical History Cardiac Medical History: Reports: Hx Hypercholesterolemia, Hx Hypertension Pulmonary Medical History: Reports: Hx Bronchitis Neurological Medical History: Endocrine Medical History: Reports: Hx Diabetes Mellitus Type 2 Renal/ Medical History: Reports: Hx Kidney Stones. Denies: Hx Peritoneal Dialysis GI Medical History: Reports: Hx Gastritis, Hx Gastroesophageal Reflux Disease Musculoskeletal Medical History: Reports Hx Arthritis Psychiatric Medical History: Reports: Hx Depression Infectious Medical History: Past Surgical History: Reports: Hx Section - X1, Hx Cholecystectomy, Hx Hysterectomy, Hx Inguinal Hernia - Immunizations Immunizations up to date: No Hx Diphtheria, Pertussis, Tetanus Vaccination: No Physical Exam - Vital signs Vitals: Temp Pulse Resp BP Pulse Ox 97.9 F 80 18 153/73 H 98 08/09/18 12:35 08/09/18 12:35 08/09/18 12:35 08/09/18 12:35 08/09/18 12:35 Course - Re-evaluation Re-evalutation: 08/09/18 14:25 Vitals reviewed. Nursing notes reviewed. Patient is afebrile and nontoxic in appearance. She is breathing easily on room air and in no acute respiratory distress. She does have a prolonged expiratory phase with bilateral wheezing and was ordered a DuoNeb for symptom medic management. Patient's EKG shows no ectopy or ischemic changes. 08/09/18 16:28 Patient's lab work is a thrombocytosis which on chart review she has had pre viously. I did tell her about this lab result and encouraged her to follow with her primary care doctor. Patient's chest x-ray shows no acute process including pneumonia or pneumothorax. She did feel better after aerosol treatment. Vascular ultrasound of the lower cavity negative for acute DVT. Patient's peripheral edema and pain is likely related to neuropathy from her diabetes and dependent edema. I counseled her on elevating her legs as well as using compression stockings. She will follow with her primary care provider for further management in the next few days. She is stable at discharge. Laboratory 08/09/18 08/09/18 08/09/18 13:32 13:32 13:32 WBC 9.5 RBC 4.56 Hgb 12.6 Hct 37.2 MCV 82 MCH 27.6 MCHC 33.9 RDW 17.4 H Plt Count 648 H Seg Neutrophils % 75.9 Lymphocytes % 17.5 Monocytes % 5.1 Eosinophils % 0.8 Basophils % 0.7 Absolute Neutrophils 7.2 Absolute Lymphocytes 1.7 Absolute Monocytes 0.5 Absolute Eosinophils 0.1 Absolute Basophils 0.1 Sodium 141.1 Potassium 4.5 Chloride 103 Carbon Dioxide 27 Anion Gap 11 BUN 16 Creatinine 0.77 Est GFR ( Amer) > 60 Est GFR (Non-Af Amer) > 60 Glucose 97 Calcium 10.1 Total Bilirubin 0.4 Direct Bilirubin 0.2 Neonat Total Bilirubin Not Reportable Neonat Direct Bilirubin Not Reportable Neonat Indirect Bili Not Reportable AST 20 ALT 23 Alkaline Phosphatase 88 Troponin I < 0.012 NT-Pro-B Natriuret Pep 383 Total Protein 7.1 Albumin 4.5 Urine Color Urine Appearance Urine pH Ur Specific [place] Urine Protein Urine Glucose (UA) Urine Ketones Urine Blood Urine Nitrite Urine Bilirubin Urine Urobilinogen Ur Leukocyte Esterase Urine WBC (Auto) Urine RBC (Auto) Urine Bacteria (Auto) Squamous Epi Cells Auto Urine Mucus (Auto) Urine Ascorbic Acid 08/09/18 13:32 WBC RBC Hgb Hct MCV MCH MCHC RDW Plt Count Seg Neutrophils % Lymphocytes % Monocytes % Eosinophils % Basophils % Absolute Neutrophils Absolute Lymphocytes Absolute Monocytes Absolute Eosinophils Absolute Basophils Sodium Potassium Chloride Carbon Dioxide Anion Gap BUN Creatinine Est GFR ( Amer) Est GFR (Non-Af Amer) Glucose Calcium Total Bilirubin Direct Bilirubin Neonat Total Bilirubin Neonat Direct Bilirubin Neonat Indirect Bili AST ALT Alkaline Phosphatase Troponin I NT-Pro-B Natriuret Pep Total Protein Albumin Urine Color YELLOW Urine Appearance CLOUDY Urine pH 7.0 Ur Specific [place] 1.018 Urine Protein NEGATIVE Urine Glucose (UA) NEGATIVE Urine Ketones NEGATIVE Urine Blood NEGATIVE Urine Nitrite NEGATIVE Urine Bilirubin NEGATIVE Urine Urobilinogen 2.0 H Ur Leukocyte Esterase TRACE H Urine WBC (Auto) 1 Urine RBC (Auto) 2 Urine Bacteria (Auto) TRACE Squamous Epi Cells Auto 8 Urine Mucus (Auto) RARE Urine Ascorbic Acid NEGATIVE Chest X-Ray 08/09/18 13:03 IMPRESSION: NO ACUTE RADIOGRAPHIC FINDING IN THE CHEST. - Vital Signs Vital signs: Temp Pulse Resp BP Pulse Ox 97.9 F 80 18 153/73 H 98 08/09/18 12:35 08/09/18 12:35 08/09/18 12:35 08/09/18 12:35 08/09/18 12:35 - Laboratory Result Diagrams: 08/09/18 13:32 08/09/18 13:32 Laboratory results interpreted by me: 08/09/18 08/09/18 13:32 13:32 RDW 17.4 H Plt Count 648 H Urine Urobilinogen 2.0 H Ur Leukocyte Esterase TRACE H - EKG Interpretation by Me Additional EKG results interpreted by me: 08/09/18 14:25 Interpreted by myself 1333: Normal sinus rhythm, rate 72, normal axis, no ectopy, no ST elevation Discharge - Discharge Clinical Impression: Peripheral edema, Thrombocytosis, Neuropathy of both feet Condition: Stable Disposition: HOME, SELF-CARE Instructions: Edema, Peripheral ([facility]) Additional Instructions: Please return to the emergency department if you have any worsening, or concern of your symptoms. Please return to the emergency department if you develop chest pain, difficulty breathing, severe abdominal pain, or ongoing vomiting. Please follow-up with your primary care physician in 2-3 days and any other recommended physicians. If prescribed, take all medications as directed. If you have any questions or concerns do not hesitate to return the emergency department for evaluation. Your blood work today did show elevated platelet counts. This is something that you have had on previous blood testing at this facility. You should be following with your primary care doctor for monitoring of your elevated platelet counts. Keep your legs elevated and wear compression stockings to help decrease your peripheral edema Referrals: CALDERON MOSES MD [Primary Care Provider] - Follow up in 3-5 days
[2018-08-09 14:28] LABS: NT PRO BNP 383 pg/mL (5-900)
[2018-08-09 14:33] LABS: TROPONIN I < 0.012 ng/mL
[2018-08-09] MEDS ORDERED: KETOROLAC TROMETHAMINE INJ/PF 30 MG/1 ML SDV IM ONE (15:01)
[2018-08-09 16:45] VITALS: BP 147/87
--- NOTE | 2018-08-09 17:24 | EKG REPORT ---
SEVERITY:- NORMAL ECG - SINUS RHYTHM : Confirmed by: Patrick Ricks MD 09-Aug-2018 17:22:50
--- NOTE | 2018-08-09 23:27 | XCELERA REPORT ---
[address] [facility] [address] Lower Extremity Venous Evaluation Procedure: Color flow and duplex imaging bilaterally of the veins of the lower extremities as well as the Common Femoral veins. Right Sided Venous Evaluation Normal vessel filling wall to wall, compression and augmentation as well as Colour flow down to the infrageniculate veins. Left Sided Venous Evaluation Normal vessel filling wall to wall, compression and augmentation as well as Colour flow down to the infrageniculate veins. Interpretation Summary No duplex evidence of DVT or obstruction in the bilateral lower extremities. Name: LENY ELW Age: 53 yrs Gender: Female : 1965 Patient Status: Emergency Patient Location: ER Study Date: 08/09/2018 03:57 PM Reason For Study: leg edema Ordering Physician: ABIOLA SANTANA Performed By: Britton Bowers : ABIOLA SANTANA > Tyler Lazaro
== END 2018-08-09 16:45 | disposition home or self-care (01) ==
LOC: ER 12:24
DX: E11.40 Type 2 diabetes mellitus with diabetic neuropathy, unspecified (principal); R60.0 Localized edema; D47.3 Essential (hemorrhagic) thrombocythemia; R25.2 Cramp and spasm; R07.89 Other chest pain; R06.02 Shortness of breath; F17.200 Nicotine dependence, unspecified, uncomplicated; I10 Essential (primary) hypertension; R06.2 Wheezing
CPT/HCPCS: 93005; 94640; 99285; 96372; 36415; 87086; 85025; 80053; 81001; 84484; 83880; 93970 ×2; 71046; 93010; J1885; A9270; J7620

== ENCOUNTER 2018-09-03 02:07 | Emergency (ER) | payer MEDICARE, MEDICAID ==
--- NOTE | 2018-09-03 06:36 | ER Document Report ---
ED GI/ - General Chief Complaint: Abdominal Pain Stated Complaint: ABDOMINAL PAIN Time Seen by Provider: 09/03/18 06:08 Primary Care Provider: CALDERON MOSES MD [Primary Care Provider] - Follow up as needed Notes: 53-year-old female patient emergency department chief complaint of diffuse abdominal pain and pelvic discomfort. Patient states that this is been going on for quite some time. Has not seen a doctor. Denies any fever, chills, sweats. Denies any significant vaginal discharge. TRAVEL OUTSIDE OF THE [place] IN LAST 30 DAYS: No - HPI Patient complains to provider of: Abdominal pain, Pelvic pain Onset: Last week Timing/Duration: Gradual, Constant Quality of pain: Achy Severity at maximum: Moderate Severity in ED: Moderate Pain Level: Denies Location: Epigastric, Vaginal - Related Data Allergies/Adverse Reactions: No Known Allergies Allergy (Verified 08/09/18 12:25) Past Medical History - General Information source: Patient - Social History Smoking Status: Smoker,Current Status Unk Frequency of alcohol use: None Drug Abuse: None Lives with: Family Family History: Reviewed & Not Pertinent, CAD, CVA, DM, Hyperlipidemia, Hypertension - Past Medical History Cardiac Medical History: Reports: Hx Hypercholesterolemia, Hx Hypertension Pulmonary Medical History: Reports: Hx Bronchitis Neurological Medical History: Endocrine Medical History: Reports: Hx Diabetes Mellitus Type 2 Renal/ Medical History: Reports: Hx Kidney Stones. Denies: Hx Peritoneal Dialysis GI Medical History: Reports: Hx Gastritis, Hx Gastroesophageal Reflux Disease Musculoskeletal Medical History: Reports Hx Arthritis Psychiatric Medical History: Reports: Hx Depression Infectious Medical History: Past Surgical History: Reports: Hx Section - X1, Hx Cholecystectomy, Hx Hysterectomy, Hx Inguinal Hernia - Immunizations Immunizations up to date: No Hx Diphtheria, Pertussis, Tetanus Vaccination: No Review of Systems - Review of Systems Notes: Constitutional: denies: Chills, Diaphoresis, Fever, Malaise, Weakness EENT: denies: Eye discharge, Blurred vision, Tearing, Double vision, Nose congestion, Nose discharge, Throat swelling, Mouth pain Cardiovascular: denies: Palpitations, Heart racing, Orthopnea, Dyspnea, Chest pain Respiratory: denies: Cough, Hurts to breathe, Wheezing, Shortness of breath Gastrointestinal: denies: Diarrhea, Nausea, Vomiting, Black stools, bright red blood in stool. Does complain of abdominal pain. Genitourinary: denies: Burning, Dysuria, Discharge, Frequency, Flank pain, Hematuria. Does complain of some pressure in the vagina. Musculoskeletal: denies: Joint pain, Joint swelling, Muscle pain, Muscle stiffness, back pain Hematologic/Lymphatic: denies: Anemia, Easy bleeding, Easy bruising, Blood clots Neurological/Psychological: denies: Confusion, Dementia, Depression, Loss of consciousness Skin: No lesions, no masses, no skin breakdown, no abscesses Physical Exam - Vital signs Vitals: Temp Pulse Resp BP Pulse Ox 98.2 F 86 20 150/106 H 96 09/03/18 02:20 09/03/18 02:20 09/03/18 02:20 09/03/18 02:20 09/03/18 02:20 Interpretation: Normal - General General appearance: Appears well, Alert - HEENT Head: Normocephalic, Atraumatic Eyes: Normal Pupils: PERRL - Respiratory Respiratory status: No respiratory distress Chest status: Nontender Breath sounds: Normal Chest palpation: Normal - Cardiovascular Rhythm: Regular Heart sounds: Normal auscultation Murmur: No - Abdominal Inspection: Normal Distension: No distension Bowel sounds: Normal Tenderness: Tender - SMall non-incarcerated umbilical hernia mildly tender to palpation. Organomegaly: No organomegaly - Genitourinary External exam: Normal Speculum exam: Normal Vaginal bleeding: None - Back Back: Normal, Nontender - Extremities General upper extremity: Normal inspection, Nontender, Normal color, Normal ROM, Normal temperature General lower extremity: Normal inspection, Nontender, Normal color, Normal ROM, Normal temperature, Normal weight bearing. No: Sailaja's sign - Neurological Neuro grossly intact: Yes Cognition: Normal Orientation: AAOx4 Delvin Coma Scale Eye Opening: Spontaneous Sterling Coma Scale Verbal: Oriented [place] Coma Scale Motor: Obeys Commands Sterling Coma Scale Total: 15 Speech: Normal Motor strength normal: LUE, RUE, LLE, RLE Sensory: Normal - Psychological Associated symptoms: Normal affect, Normal mood - Skin Skin Temperature: Warm Skin Moisture: Dry Skin Color: Normal Course - Re-evaluation Re-evalutation: 09/03/18 08:38 Laboratory 09/03/18 09/03/18 09/03/18 07:10 07:47 07:47 WBC 12.1 H RBC 4.51 Hgb 12.4 Hct 37.2 MCV 82 MCH 27.4 MCHC 33.3 RDW 16.8 H Plt Count 485 H Seg Neutrophils % 76.2 Lymphocytes % 16.9 Monocytes % 5.7 Eosinophils % 0.7 Basophils % 0.5 Absolute Neutrophils 9.2 H Absolute Lymphocytes 2.0 Absolute Monocytes 0.7 Absolute Eosinophils 0.1 Absolute Basophils 0.1 Sodium 141.9 Potassium 4.5 Chloride 111 H Carbon Dioxide 24 Anion Gap 7 BUN 28 H Creatinine 0.59 Est GFR ( Amer) > 60 Est GFR (Non-Af Amer) > 60 Glucose 158 H Calcium 9.9 Total Bilirubin 0.5 Direct Bilirubin 0.2 Neonat Total Bilirubin Not Reportable Neonat Direct Bilirubin Not Reportable Neonat Indirect Bili Not Reportable AST 17 ALT 34 Alkaline Phosphatase 103 Total Protein 6.5 Albumin 3.7 Lipase 221.1 Urine Color YELLOW Urine Appearance SLIGHTLY-CLOUDY Urine pH 5.0 Ur Specific [place] 1.026 Urine Protein NEGATIVE Urine Glucose (UA) NEGATIVE Urine Ketones NEGATIVE Urine Blood NEGATIVE Urine Nitrite NEGATIVE Urine Bilirubin NEGATIVE Urine Urobilinogen 2.0 H Ur Leukocyte Esterase TRACE H Urine WBC (Auto) 4 Urine RBC (Auto) 0 U Hyaline Cast (Auto) 2 Squamous Epi Cells Auto 4 Urine Mucus (Auto) RARE Urine Ascorbic Acid NEGATIVE Epi Cells (Wet Prep) Trichomonas (Wet Prep) Vaginal WBC Vaginal RBC Vaginal Yeast 09/03/18 08:05 WBC RBC Hgb Hct MCV MCH MCHC RDW Plt Count Seg Neutrophils % Lymphocytes % Monocytes % Eosinophils % Basophils % Absolute Neutrophils Absolute Lymphocytes Absolute Monocytes Absolute Eosinophils Absolute Basophils Sodium Potassium Chloride Carbon Dioxide Anion Gap BUN Creatinine Est GFR ( Amer) Est GFR (Non-Af Amer) Glucose Calcium Total Bilirubin Direct Bilirubin Neonat Total Bilirubin Neonat Direct Bilirubin Neonat Indirect Bili AST ALT Alkaline Phosphatase Total Protein Albumin Lipase Urine Color Urine Appearance Urine pH Ur Specific [place] Urine Protein Urine Glucose (UA) Urine Ketones Urine Blood Urine Nitrite Urine Bilirubin Urine Urobilinogen Ur Leukocyte Esterase Urine WBC (Auto) Urine RBC (Auto) U Hyaline Cast (Auto) Squamous Epi Cells Auto Urine Mucus (Auto) Urine Ascorbic Acid Epi Cells (Wet Prep) 3+ EPITHELIALS SEEN Trichomonas (Wet Prep) NO TRICHOMONAS SEEN Vaginal WBC RARE WBCS SEEN Vaginal RBC NO RBCS SEEN Vaginal Yeast NO YEAST SEEN 09/03/18 08:38 Time based on the fact that she has morbid obesity we will do a CT scan on her abdomen as she is complaining of kind of diffuse abdominal pain with pain radiating down into the pelvis. Pelvic exam was fairly unremarkable. Labs have a slight elevated WBC count. 09/03/18 10:11 Currently most of the exam is fairly unremarkable. CT scan does not show anything acute. I will give her follow-up information for [facility] as well as general surgery as she continues to have some mild abdominal pain. I find no surgical emergency at this time. - Vital Signs Vital signs: Temp Pulse Resp BP Pulse Ox 97.6 F 87 20 151/77 H 100 09/03/18 06:22 09/03/18 06:22 09/03/18 06:22 09/03/18 06:22 09/03/18 06:22 - Laboratory Result Diagrams: 09/03/18 07:47 09/03/18 07:47 Laboratory results interpreted by me: 09/03/18 09/03/18 09/03/18 07:10 07:47 07:47 WBC 12.1 H RDW 16.8 H Plt Count 485 H Absolute Neutrophils 9.2 H Chloride 111 H BUN 28 H Glucose 158 H Urine Urobilinogen 2.0 H Ur Leukocyte Esterase TRACE H Discharge - Discharge Clinical Impression: Pelvic pain Umbilical hernia Qualifiers: Obstruction and gangrene presence: without obstruction or gangrene Qualified Code(s): K42.9 - Umbilical hernia without obstruction or gangrene Condition: Good Disposition: HOME, SELF-CARE Instructions: Abdominal Pain ([facility]), Pelvic Pain ([facility]) Additional Instructions: Follow-up with your primary care doctor, [facility] as well as general surgery if the symptoms persist. No significant findings were found today. In the event the symptoms are getting worse over the next 24 hours please return. Prescriptions: Tramadol HCl [Ultram 50 mg Tablet] 50 mg PO Q6H PRN 4 Days #12 tab PRN Reason: Referrals: CALDERON MOSES MD [Primary Care Provider] - Follow up as needed BK PRESLEY MD [ACTIVE STAFF] - Follow up as needed ELYSSA MONTENEGRO MD [ACTIVE STAFF] - Follow up as needed
[2018-09-03 08:03] LABS: ABSOLUTE BASOPHILS # (AUTO) 0.1 10^3/uL (0.0-0.2); ABSOLUTE EOSINOPHILS # (AUTO) 0.1 10^3/uL (0.0-0.6); ABSOLUTE MONOCYTES (AUTO) 0.7 10^3/uL (0.1-1.4); ABSOLUTE NEUT (AUTO) 9.2 10^3/uL (1.7-8.2); BASOPHILS % (AUTO) 0.5 % (0-2); EOSINOPHILS % (AUTO) 0.7 % (0-6); HEMATOCRIT 37.2 % (36.0-47.0); HEMOGLOBIN 12.4 g/dL (12.0-15.5); LYMPHOCYTES % (AUTO) 16.9 % (13-45); MEAN CORPUSCULAR HEMOGLOBIN 27.4 pg (27.0-33.4); MEAN CORPUSCULAR HGB CONC 33.3 g/dL (32.0-36.0); MEAN CORPUSCULAR VOLUME 82 fl (80-97); MONOCYTES % (AUTO) 5.7 % (3-13); PLATELET COUNT 485 10^3/uL (150-450); RED BLOOD COUNT 4.51 10^6/uL (3.72-5.28); RED CELL DISTRIBUTION WIDTH 16.8 % (11.5-14.0); SEGMENTED NEUTROPHILS % (AUTO) 76.2 % (42-78); TOTAL CELLS COUNTED % (AUTO) 100 %; WHITE BLOOD COUNT 12.1 10^3/uL (4.0-10.5)
[2018-09-03 08:08] LABS: APPEARANCE,URINE SLIGHTLY-CLOUDY; BILIRUBIN,URINE NEGATIVE (NEGATIVE); COLOR,URINE YELLOW; GLUCOSE, URINE NEGATIVE (NEGATIVE); KETONES,URINE NEGATIVE (NEGATIVE); LEUKOCYTE ESTERASE,URINE TRACE (NEGATIVE); NITRITE,URINE NEGATIVE (NEGATIVE); PROTEIN,URINE NEGATIVE (NEGATIVE); URINE SPECIFIC GRAVITY 1.026
[2018-09-03 08:20] LABS: ALANINE AMINOTRANSFERASE 34 U/L (9-52); ALBUMIN 3.7 g/dL (3.5-5.0); ALKALINE PHOSPHATASE 103 U/L (38-126); ANION GAP 7 (5-19); ASPARTATE AMINO TRANSFERASE 17 U/L (14-36); BILIRUBIN,DIRECT 0.2 mg/dL (0.0-0.4); BILIRUBIN,TOTAL 0.5 mg/dL (0.2-1.3); BLOOD UREA NITROGEN 28 mg/dL (7-20); CALCIUM 9.9 mg/dL (8.4-10.2); CARBON DIOXIDE 24 mmol/L (22-30); CHLORIDE 111 mmol/L (98-107); GLUCOSE 158 mg/dL (75-110); LIPASE 221.1 U/L (23-300); POTASSIUM 4.5 mmol/L (3.6-5.0); SODIUM 141.9 mmol/L (137-145); TOTAL PROTEIN 6.5 g/dL (6.3-8.2)
[2018-09-03 08:26] LABS: EPITHELIALS (WET MOUNT) 3+ EPITHELIALS SEEN; RBCS (WET MOUNT) NO RBCS SEEN; T.VAGINALIS (WET MOUNT) NO TRICHOMONAS SEEN; WBCS (WET MOUNT) RARE WBCS SEEN; YEAST (WET MOUNT) NO YEAST SEEN
--- NOTE | 2018-09-03 09:20 | RADIOLOGY REPORT (SQ) ---
EXAM DESCRIPTION: CT ABD/PELVIS WITH IV ONLY COMPLETED DATE/TIME: 09/03/2018 9:05 am REASON FOR STUDY: abd pain and pelvic pain COMPARISON: None. TECHNIQUE: CT scan of the abdomen and pelvis performed using helical scanning technique with dynamic intravenous contrast injection. No oral contrast. Images reviewed with lung, soft tissue, and bone windows. Reconstructed coronal and sagittal MPR images reviewed. Delayed images for evaluation of the urinary system also acquired. All images stored on PACS. All CT scanners at this facility use dose modulation, iterative reconstruction, and/or weight based d osing when appropriate to reduce radiation dose to as low as reasonably achievable (ALARA). [facility]: Dose Right [facility]: CareDose [facility]: Dose Right [facility]: Teradose 4D [facility]: [employer] CONTRAST TYPE AND DOSE: contrast/concentration: Isovue 350.00 mg/ml; Total Contrast Delivered: 100.0 ml; Total Saline Delivered: 72.0 ml RENAL FUNCTION: GFR > 60. RADIATION DOSE: CT Rad equipment meets quality standard of care and radiation dose reduction techniq ues were employed. CTDIvol: 21.0 - 21.1 mGy. DLP: 2286 mGy-cm.. LIMITATIONS: None. FINDINGS: LOWER CHEST: No significant findings. No nodules or infiltrates. LIVER: Normal size. No masses. No dilated ducts. SPLEEN: Normal size. No focal lesions. PANCREAS: No masses. No significant calcifications. No adjacent inflammation or peripancreatic fluid collections. Pancreatic duct not dilated. GALLBLADDER: Surgically absent. ADRENAL GLANDS: No significant masses or asymmetry. RIGHT KIDNEY AND URETER: No solid masses. No significant calcifications. No hydronephrosis or hyd roureter. LEFT KIDNEY AND URETER: No solid masses. No significant calcifications. No hydronephrosis or hydr oureter. AORTA AND VESSELS: No aneurysm. No dissection. Renal arteries, SMA, celiac without stenosis. RETROPERITONEUM: No retroperitoneal adenopathy, hemorrhage or masses. BOWEL AND PERITONEAL CAVITY: No masses or inflammatory changes. No free fluid or peritoneal masses. APPENDIX: Not clearly visualized. PELVIS: No mass. No free fluid. Normal bladder. ABDOMINAL WALL: No masses. Small fat containing umbilical hernia. BONES: No significant or acute findings. OTHER: No other significant finding. IMPRESSION: 1. No CT findings to explain acute abdominal pain. 2. Status post cholecystectomy. 3. Small fat containing umbilical hernia. TECHNICAL DOCUMENTATION: JOB ID: [id number] Quality ID # [id number]: Final reports with documentation of one or more dose reduction techniques (e.g., Au tomated exposure control, adjustment of the mA and/or kV according to patient size, use of iterative reconstruction technique) 2010 [employer]- All Rights Reserved Reading location - IP/workstation name: [email or web address]
[2018-09-03 09:57] LABS: CHLAM PCR NOT DETECTED (NOT DETECT); GON PCR NOT DETECTED (NOT DETECT)
[2018-09-03 10:45] VITALS: BP 156/115
== END 2018-09-03 10:46 | disposition home or self-care (01) ==
LOC: ER 02:07
DX: K42.9 Umbilical hernia without obstruction or gangrene (principal); R10.84 Generalized abdominal pain; E66.01 Morbid (severe) obesity due to excess calories; I10 Essential (primary) hypertension; E11.9 Type 2 diabetes mellitus without complications; Z87.442 Personal history of urinary calculi; Z90.49 Acquired absence of other specified parts of digestive tract; Z90.710 Acquired absence of both cervix and uterus
CPT/HCPCS: 36415; 74177; 80053; 81001; 81025; 83690; 85025; 87210; 87491; 87591; 99284

== ENCOUNTER 2018-09-09 02:43 | Emergency (ER) | payer MEDICARE, MEDICAID ==
[2018-09-09] MEDS ORDERED: LIDOCAINE 5% (700 MG) TRANSDERMAL ADH..PATCH TP ONE (06:24)
[2018-09-09] MEDS ORDERED: LISINOPRIL 10 MG TABLET PO ONE (06:24)
[2018-09-09] MEDS ORDERED: KETOROLAC TROMETHAMINE 60 MG/2 ML SDV IM ONE (06:24)
--- NOTE | 2018-09-09 06:58 | ER Document Report ---
HPI - HPI Time Seen by Provider: 09/09/18 06:16 Pain Level: 4 Notes: Ms. Herrera is a 53-year-old female presenting to the emergency department with chief complaint of low back pain that started approximately 24 hours ago. She denies any injury. She reports associated dysuria. Patient denies any fevers, nausea, vomiting or diarrhea. Patient denies any urinary or bowel incontinence, urinary retention or saddle anesthesia. She denies any radiation of the pain. - REPRODUCTIVE Reproductive: DENIES: : Past Medical History - General Information source: Patient - Social History Smoking Status: Never Smoker Frequency of alcohol use: None Drug Abuse: None Family History: Reviewed & Not Pertinent, CAD, CVA, DM, Hyperlipidemia, Hypertension - Past Medical History Cardiac Medical History: Reports: Hx Hypercholesterolemia, Hx Hypertension Pulmonary Medical History: Reports: Hx Bronchitis Neurological Medical History: Endocrine Medical History: Reports: Hx Diabetes Mellitus Type 2 Renal/ Medical History: Reports: Hx Kidney Stones. Denies: Hx Peritoneal Dialysis GI Medical History: Reports: Hx Gastritis, Hx Gastroesophageal Reflux Disease Musculoskeletal Medical History: Reports Hx Arthritis Psychiatric Medical History: Reports: Hx Depression Infectious Medical History: Past Surgical History: Reports: Hx Section - X1, Hx Cholecystectomy, Hx Hysterectomy, Hx Inguinal Hernia - Immunizations Immunizations up to date: No Hx Diphtheria, Pertussis, Tetanus Vaccination: No Vertical Provider Document - CONSTITUTIONAL Notes: PHYSICAL EXAMINATION: GENERAL: Well-appearing, well-nourished and in no acute distress. HEAD: Atraumatic, normocephalic. EYES: Pupils equal round extraocular movements intact, conjunctiva are normal. ENT: Nares patent NECK: Normal range of motion LUNGS: No respiratory distress Musculoskeletal: Normal range of motion, tenderness to palpation to bilateral lumbar paraspinous areas, no vertebral tenderness, step-off or deformity. Genitourinary: No CVAT. NEUROLOGICAL: Normal speech, normal gait. PSYCH: Normal mood, normal affect. SKIN: Warm, Dry, normal turgor, no rashes or lesions noted. - INFECTION CONTROL TRAVEL OUTSIDE OF THE [place] IN LAST 30 DAYS: No Course - Re-evaluation Re-evalutation: Patient's urinalysis is unremarkable. Considering patient is a symptomatic with dysuria will start patient on short course of p.o. antibiotics pending urine culture. Patient understands someone will call in the next 72 hours if there is any abnormality on the urine culture. - Vital Signs Vital signs: Temp Pulse Resp BP Pulse Ox 98.2 F 92 17 148/81 H 99 09/09/18 02:48 09/09/18 02:48 09/09/18 02:48 09/09/18 02:48 09/09/18 02:48 Discharge - Discharge Clinical Impression: Dysuria Low back pain Qualifiers: Chronicity: chronic Back pain laterality: bilateral Sciatica presence: without sciatica Qualified Code(s): M54.5 - Low back pain Condition: Stable Disposition: HOME, SELF-CARE Additional Instructions: You have been seen in the Emergency Department (ED) today for back pain. Your workup and exam have not shown any acute abnormalities and you are likely suffering from muscle strain or possible problems with your discs, but there is no treatment that will fix your symptoms at this time. Please take ibuprofen 600 mg every 6 hours for pain and inflammation. You should also purchase a local lidocaine cream such as "aspercreme with lidocaine" and use per bottle instructions to the affected area. Apply heat to the area as often as you are able. Continue to keep active and avoid prolonged periods of bed rest. Your urinalysis today was normal. We will start you on a short course of antibiotics pending a urine culture since you are having symptoms of urinary tract infection. If there is any abnormality on the urine culture someone will call you in the next 3 days. Please follow up with your doctor as soon as possible regarding today's ED visit and your back pain. Return to the ED for worsening back pain, fever, weakness or numbness of either leg, or if you develop either (1) an inability to urinate or have bowel movements, or (2) loss of your ability to control your bathroom functions (if you start having "accidents"), or if you develop other new symptoms that concern you.concern you. Prescriptions: Cephalexin [Cephalexin 500 MG Tablet] 1 tab PO BID #10 tablet Referrals: CALDERON MOSES MD [Primary Care Provider] - Follow up as needed
[2018-09-09 07:23] LABS: APPEARANCE,URINE CLEAR; BILIRUBIN,URINE NEGATIVE (NEGATIVE); COLOR,URINE YELLOW; GLUCOSE, URINE NEGATIVE (NEGATIVE); KETONES,URINE NEGATIVE (NEGATIVE); LEUKOCYTE ESTERASE,URINE NEGATIVE (NEGATIVE); NITRITE,URINE NEGATIVE (NEGATIVE); PROTEIN,URINE NEGATIVE (NEGATIVE); URINE SPECIFIC GRAVITY 1.025
[2018-09-09 08:02] VITALS: BP 152/70
== END 2018-09-09 08:00 | disposition home or self-care (01) ==
LOC: ER 02:43
DX: R30.0 Dysuria (principal); M54.5 Low back pain; E11.9 Type 2 diabetes mellitus without complications; I10 Essential (primary) hypertension
CPT/HCPCS: 99283; 96372; 87086; 87088; 81001; 87186; J1885

== ENCOUNTER 2018-09-13 22:43 | Emergency (ER) | payer MEDICARE, MEDICAID ==
[2018-09-13 23:40] LABS: ABSOLUTE BASOPHILS # (AUTO) 0.1 10^3/uL (0.0-0.2); ABSOLUTE EOSINOPHILS # (AUTO) 0.1 10^3/uL (0.0-0.6); ABSOLUTE MONOCYTES (AUTO) 0.5 10^3/uL (0.1-1.4); BASOPHILS % (AUTO) 0.7 % (0-2); EOSINOPHILS % (AUTO) 0.8 % (0-6); HEMATOCRIT 38.5 % (36.0-47.0); HEMOGLOBIN 12.9 g/dL (12.0-15.5); LYMPHOCYTES % (AUTO) 20.6 % (13-45); MEAN CORPUSCULAR HEMOGLOBIN 27.9 pg (27.0-33.4); MEAN CORPUSCULAR HGB CONC 33.6 g/dL (32.0-36.0); MEAN CORPUSCULAR VOLUME 83 fl (80-97); MONOCYTES % (AUTO) 5.3 % (3-13); PLATELET COUNT 491 10^3/uL (150-450); RED BLOOD COUNT 4.63 10^6/uL (3.72-5.28); RED CELL DISTRIBUTION WIDTH 16.9 % (11.5-14.0); SEGMENTED NEUTROPHILS % (AUTO) 72.6 % (42-78); TOTAL CELLS COUNTED % (AUTO) 100 %; WHITE BLOOD COUNT 9.6 10^3/uL (4.0-10.5)
--- NOTE | 2018-09-13 23:56 | ER Document Report ---
ED General - General Chief Complaint: Dizziness Stated Complaint: DIZZINESS Time Seen by Provider: 09/13/18 23:36 Primary Care Provider: CALDERON MOSES MD [Primary Care Provider] - Follow up in 3-5 days Notes: Patient is a 53-year-old female with history of diabetes that presents to the emergency department for chief complaint of fatigue and feeling some nausea while she was out at a restaurant late this evening. Patient states she has a mild headache associated with this currently rates it as a 2 out of 10 at its across the top of her head. She states that she just feels drowsy, and "off" and cannot explain it well. She states she was feeling well earlier. She states that her blood glucose was in the 200s, she states that she still some insulin prior to ED arrival. She denies having any blurred vision, change in vision, numbness, weakness or tingling in any extremity. She denies having any abdominal pain, chest pain, shortness of breath or difficulty breathing. Past Medical History: Diabetes mellitus, hypertension Past Surgical History: Hysterectomy, cholecystectomy Social History: Denies tobacco, alcohol or drug use. Family History: Reviewed and noncontributory for presenting illness Allergies: Reviewed, see documented allergy list. REVIEW OF SYSTEMS: Other than noted above, the 12 point review of systems was reviewed with the patient and were negative, all pertinent findings are included in the HPI. PHYSICAL EXAMINATION: Vital signs reviewed, nursing noted reviewed. GENERAL: Well-appearing, well-nourished, somewhat somnolent, but conversant, and laughing at times during history taking HEAD: Atraumatic, normocephalic. EYES: Eyes appear normal, extraocular movements intact, sclera anicteric, conjunctiva are normal. PERRLA ENT: nares patent, oropharynx clear without exudates. Moist mucous membranes. NECK: Normal range of motion, supple without lymphadenopathy LUNGS: Breath sounds clear to auscultation bilaterally and equal. No wheezes rales or rhonchi. HEART: Regular rate and rhythm without murmurs ABDOMEN: Soft, nontender, normoactive bowel sounds. No rebound, guarding, or rigidity. No masses appreciated. EXTREMITIES: Nontender, good range of motion, no pitting or edema. NEUROLOGICAL: No focal neurological deficits. Moves all extremities spontane ously Motor and sensory grossly intact on exam. Normal kvaqgs-hrsn-namlil testing, sensation grossly intact and equal bilaterally in all extremities, cranial nerves tested and intact. PSYCH: Normal mood, normal affect. SKIN: Warm, Dry, normal turgor, no rashes or lesions noted on exposed skin TRAVEL OUTSIDE OF THE [place] IN LAST 30 DAYS: No - Related Data Allergies/Adverse Reactions: No Known Allergies Allergy (Verified 09/13/18 23:13) Past Medical History - Social History Smoking Status: Former Smoker Frequency of alcohol use: None Drug Abuse: None Family History: Reviewed & Not Pertinent, CAD, CVA, DM, Hyperlipidemia, Hypertension Patient has suicidal ideation: No Patient has homicidal ideation: No - Past Medical History Cardiac Medical History: Reports: Hx Hypercholesterolemia, Hx Hypertension Pulmonary Medical History: Reports: Hx Bronchitis Neurological Medical History: Endocrine Medical History: Reports: Hx Diabetes Mellitus Type 2 Renal/ Medical History: Reports: Hx Kidney Stones. Denies: Hx Peritoneal Dialysis GI Medical History: Reports: Hx Gastritis, Hx Gastroesophageal Reflux Disease Musculoskeletal Medical History: Reports Hx Arthritis Psychiatric Medical History: Reports: Hx Depression Infectious Medical History: Past Surgical History: Reports: Hx Section - X1, Hx Cholecystectomy, Hx Hysterectomy, Hx Inguinal Hernia - Immunizations Immunizations up to date: No Hx Diphtheria, Pertussis, Tetanus Vaccination: No Physical Exam - Vital signs Vitals: Temp Pulse Resp BP Pulse Ox 98.1 F 79 16 144/80 H 98 09/13/18 22:48 09/13/18 22:48 09/13/18 22:48 09/13/18 22:48 09/13/18 22:48 Course - Re-evaluation Re-evalutation: Patient seen and examined vital signs reviewed. Laboratory data and/or imaging were ordered as appropriate for the patient's presenting symptoms and complaint, with consideration of any critical or life threatening conditions that may be associated with their obtained history and exam as noted above. Patient was treated with IV fluids Results were reviewed when available and demonstrated unremarkable workup, normal thyroid function, negative tox screening, CT of the head was negative as well, given onset of headache within 1 hour, effectively rules out concerning causes of acute headache such as subarachnoid hemorrhage The patient was re-evaluated and was stable and improved, headache resolved Evaluation was most consistent with headache, nonspecific Results were discussed with the patient at this point, after careful consideration I feel that that patient can be discharged from the emergency department, the patient was educated treatments and reasons to return to the emergency department based on their presumed diagnosis as noted above, they were advised to followup with a primary care physician in 2-3 days. Patient was agreeable to plan of care. *Note is created using voice recognition software and may contain spelling, syntax or grammatical errors. Laboratory 09/13/18 09/13/18 09/13/18 23:22 23:22 23:22 WBC 9.6 RBC 4.63 Hgb 12.9 Hct 38.5 MCV 83 MCH 27.9 MCHC 33.6 RDW 16.9 H Plt Count 491 H Seg Neutrophils % 72.6 Lymphocytes % 20.6 Monocytes % 5.3 Eosinophils % 0.8 Basophils % 0.7 Absolute Neutrophils 7.0 Absolute Lymphocytes 2.0 Absolute Monocytes 0.5 Absolute Eosinophils 0.1 Absolute Basophils 0.1 VBG pH VBG pCO2 VBG HCO3 VBG Base Excess Sodium 140.2 Potassium 4.6 Chloride 108 H Carbon Dioxide 23 Anion Gap 9 BUN 13 Creatinine 0.55 Est GFR ( Amer) > 60 Est GFR (Non-Af Amer) > 60 Glucose 212 H Calcium 9.7 Total Bilirubin 0.3 Direct Bilirubin 0.3 Neonat Total Bilirubin Not Reportable Neonat Direct Bilirubin Not Reportable Neonat Indirect Bili Not Reportable AST 14 ALT 33 Alkaline Phosphatase 120 Troponin I Total Protein 6.7 Albumin 3.7 TSH 2.05 Free T4 1.43 Urine Color Urine Appearance Urine pH Ur Specific Basehor Urine Protein Urine Glucose (UA) Urine Ketones Urine Blood Urine Nitrite Urine Bilirubin Urine Urobilinogen Ur Leukocyte Esterase Urine WBC (Auto) Urine RBC (Auto) Squamous Epi Cells Auto Urine Mucus (Auto) Urine Ascorbic Acid Urine Opiates Screen Urine Methadone Screen Ur Barbiturates Screen Ur Phencyclidine Scrn Ur Amphetamines Screen U Benzodiazepines Scrn Urine Cocaine Screen U Marijuana (THC) Screen Serum Alcohol 09/13/18 09/14/18 09/14/18 23:22 00:58 00:58 WBC RBC Hgb Hct MCV MCH MCHC RDW Plt Count Seg Neutrophils % Lymphocytes % Monocytes % Eosinophils % Basophils % Absolute Neutrophils Absolute Lymphocytes Absolute Monocytes Absolute Eosinophils Absolute Basophils VBG pH VBG pCO2 VBG HCO3 VBG Base Excess Sodium Potassium Chloride Carbon Dioxide Anion Gap BUN Creatinine Est GFR ( Amer) Est GFR (Non-Af Amer) Glucose Calcium Total Bilirubin Direct Bilirubin Neonat Total Bilirubin Neonat Direct Bilirubin Neonat Indirect Bili AST ALT Alkaline Phosphatase Troponin I < 0.012 Total Protein Albumin TSH Free T4 Urine Color YELLOW Urine Appearance SLIGHTLY-CLOUDY Urine pH 5.0 Ur Specific Basehor 1.026 Urine Protein NEGATIVE Urine Glucose (UA) NEGATIVE Urine Ketones NEGATIVE Urine Blood NEGATIVE Urine Nitrite NEGATIVE Urine Bilirubin NEGATIVE Urine Urobilinogen NEGATIVE Ur Leukocyte Esterase NEGATIVE Urine WBC (Auto) 1 Urine RBC (Auto) 0 Squamous Epi Cells Auto 4 Urine Mucus (Auto) OCC Urine Ascorbic Acid NEGATIVE Urine Opiates Screen Urine Methadone Screen Ur Barbiturates Screen Ur Phencyclidine Scrn Ur Amphetamines Screen U Benzodiazepines Scrn Urine Cocaine Screen U Marijuana (THC) Screen Serum Alcohol < 10 09/14/18 09/14/18 00:58 02:06 WBC RBC Hgb Hct MCV MCH MCHC RDW Plt Count Seg Neutrophils % Lymphocytes % Monocytes % Eosinophils % Basophils % Absolute Neutrophils Absolute Lymphocytes Absolute Monocytes Absolute Eosinophils Absolute Basophils VBG pH 7.33 VBG pCO2 51.4 VBG HCO3 26.6 VBG Base Excess 0 Sodium Potassium Chloride Carbon Dioxide Anion Gap BUN Creatinine Est GFR ( Amer) Est GFR (Non-Af Amer) Glucose Calcium Total Bilirubin Direct Bilirubin Neonat Total Bilirubin Neonat Direct Bilirubin Neonat Indirect Bili AST ALT Alkaline Phosphatase Troponin I Total Protein Albumin TSH Free T4 Urine Color Urine Appearance Urine pH Ur Specific Basehor Urine Protein Urine Glucose (UA) Urine Ketones Urine Blood Urine Nitrite Urine Bilirubin Urine Urobilinogen Ur Leukocyte Esterase Urine WBC (Auto) Urine RBC (Auto) Squamous Epi Cells Auto Urine Mucus (Auto) Urine Ascorbic Acid Urine Opiates Screen NEGATIVE Urine Methadone Screen NEGATIVE Ur Barbiturates Screen NEGATIVE Ur Phencyclidine Scrn NEGATIVE Ur Amphetamines Screen NEGATIVE U Benzodiazepines Scrn NEGATIVE Urine Cocaine Screen NEGATIVE U Marijuana (THC) Screen NEGATIVE Serum Alcohol Head CT 09/13/18 23:57 IMPRESSION: Negative exam TECHNICAL DOCUMENTATION: Quality ID # 436: Final reports with documentation of one or more dose reduction techniques (e.g., Automated exposure control, adjustment of the mA and/or kV according to patient size, use of iterative reconstruction technique) copyright 2011 [employer]- All Rights Reserved - Vital Signs Vital signs: Temp Pulse Resp BP Pulse Ox 97.3 F 70 17 132/63 H 100 09/14/18 03:11 09/14/18 03:11 09/14/18 03:11 09/14/18 03:11 09/14/18 03:11 - Laboratory Result Diagrams: 09/13/18 23:22 09/13/18 23:22 Laboratory results interpreted by me: 09/13/18 09/13/18 23:22 23:22 RDW 16.9 H Plt Count 491 H Chloride 108 H Glucose 212 H - EKG Interpretation by Me Additional EKG results interpreted by me: EKG demonstrates sinus rhythm with a ventricular rate of 70 bpm, normal axis, normal intervals, no evidence of acute ischemia in this EKG, compared with prior EKG from 08/09/2018, without significant change. Discharge - Discharge Clinical Impression: Lightheadedness Headache Qualifiers: Headache type: unspecified Headache chronicity pattern: unspecified pattern Intractability: not intractable Qualified Code(s): R51 - Headache Condition: Stable Disposition: HOME, SELF-CARE Instructions: Dizziness ([facility]) Additional Instructions: Please return to the emergency department if you have any worsening, or concern of your symptoms. Please return to the emergency department if you develop chest pain, difficulty breathing, severe abdominal pain, or ongoing vomiting. Please follow-up with your primary care physician in 2-3 days and any other recommended physicians. If prescribed, take all medications as directed. If you have any questions or concerns do not hesitate to return the emergency department for evaluation. Referrals: CALDERON MOSES MD [Primary Care Provider] - Follow up in 3-5 days
[2018-09-14 00:06] LABS: ALANINE AMINOTRANSFERASE 33 U/L (9-52); ALBUMIN 3.7 g/dL (3.5-5.0); ALKALINE PHOSPHATASE 120 U/L (38-126); ANION GAP 9 (5-19); ASPARTATE AMINO TRANSFERASE 14 U/L (14-36); BILIRUBIN,DIRECT 0.3 mg/dL (0.0-0.4); BILIRUBIN,TOTAL 0.3 mg/dL (0.2-1.3); BLOOD UREA NITROGEN 13 mg/dL (7-20); CALCIUM 9.7 mg/dL (8.4-10.2); CARBON DIOXIDE 23 mmol/L (22-30); CHLORIDE 108 mmol/L (98-107); GLUCOSE 212 mg/dL (75-110); POTASSIUM 4.6 mmol/L (3.6-5.0); SODIUM 140.2 mmol/L (137-145); TOTAL PROTEIN 6.7 g/dL (6.3-8.2)
[2018-09-14] MEDS ORDERED: NORMAL SALINE 1000 ML 1,000 ML IV ONE (00:32)
[2018-09-14] MEDS ORDERED: ACETAMINOPHEN 325 MG TABLET PO ONE (00:32)
[2018-09-14 01:10] LABS: APPEARANCE,URINE SLIGHTLY-CLOUDY; BILIRUBIN,URINE NEGATIVE (NEGATIVE); COLOR,URINE YELLOW; GLUCOSE, URINE NEGATIVE (NEGATIVE); KETONES,URINE NEGATIVE (NEGATIVE); LEUKOCYTE ESTERASE,URINE NEGATIVE (NEGATIVE); NITRITE,URINE NEGATIVE (NEGATIVE); PROTEIN,URINE NEGATIVE (NEGATIVE); URINE SPECIFIC GRAVITY 1.026; UROBILINOGEN,URINE NEGATIVE mg/dL (<2.0)
[2018-09-14 01:27] LABS: URINE AMPHETAMINES SCREEN NEGATIVE; URINE BARBITURATES SCREEN NEGATIVE; URINE BENZODIAZEPINES SCREEN NEGATIVE; URINE COCAINE SCREEN NEGATIVE; URINE MARIJUANA (THC) SCREEN NEGATIVE; URINE METHADONE SCREEN NEGATIVE; URINE PHENCYCLIDINE SCREEN NEGATIVE
[2018-09-14 01:41] LABS: FREE T4 (FREE THYROXINE) 1.43 ng/dL (0.78-2.19)
[2018-09-14 01:55] LABS: THYROID STIMULATING HORMONE 2.05 uIU/mL (0.47-4.68)
[2018-09-14 02:14] LABS: VENOUS BLOOD HCO3 26.6 mmol/L (20-32); VENOUS BLOOD PCO2 51.4 mmHg (35-63); VENOUS BLOOD PH 7.33 (7.30-7.42)
--- NOTE | 2018-09-14 02:17 | RADIOLOGY REPORT (SQ) ---
EXAM DESCRIPTION: CT HEAD WITHOUT IV CONTRAST COMPLETED DATE/TME: 09/13/2018 23:57 CLINICAL HISTORY: 53 years, Female, fatigue, headache COMPARISON: None. TECHNIQUE: 188 Images stored on PACS. All CT scanners at this facility use dose modulation, iterative reconstruction, and/or weight based dosing when appropriate to reduce radiation dose to as low as reasonably achievable (ALARA). [facility]: Dose Right [facility]: CareDose [facility]: Dose Right [facility]: Teradose 4D [facility]: [employer] LIMITATIONS: None. FINDINGS: The globes are intact. The paranasal sinuses and mastoid air cells are unremarkable. No displaced or depressed skull fracture. No intra or extra-axial hemorrhage. CT is limited for evaluation of acute infarct. No CT evidence for large or territorial acute infarct. No mass. No midline shift IMPRESSION: Negative exam TECHNICAL DOCUMENTATION: Quality ID # 436: Final reports with documentation of one or more dose reduction techniques (e.g., Automated exposure control, adjustment of the mA and/or kV according to patient size, use of iterative reconstruction technique) copyright 2011 [employer]- All Rights Reserved
[2018-09-14 03:16] VITALS: BP 132/63
--- NOTE | 2018-09-14 20:50 | EKG REPORT ---
SEVERITY:- NORMAL ECG - SINUS RHYTHM : Confirmed by: Jemima Mason MD 14-Sep-2018 20:49:24
== END 2018-09-14 03:16 | disposition home or self-care (01) ==
LOC: ER 22:43
DX: R42 Dizziness and giddiness (principal); R51 Headache; R53.83 Other fatigue; R11.0 Nausea; I10 Essential (primary) hypertension; E11.9 Type 2 diabetes mellitus without complications; Z87.891 Personal history of nicotine dependence
CPT/HCPCS: 93005; 99284; 36415; 84439; 82962; 80307 ×2; 84443; 85025; 80053; 81001; 84484; 82803; 70450; 93010; A9270; J7030

== ENCOUNTER 2018-09-19 17:52 | Observation (INO) | payer MEDICARE, MEDICAID ==
[2018-09-19] MEDS ORDERED: ASPIRIN 81 MG TABLET, CHEWABLE PO ONE (19:36)
--- NOTE | 2018-09-19 19:39 | ER Document Report ---
ED Medical Screen (RME) - General Chief Complaint: Pedal Edema Stated Complaint: SWOLLEN ANKLES Time Seen by Provider: 09/19/18 19:35 Primary Care Provider: CALDERON MOSES MD [Primary Care Provider] - Follow up as needed Mode of Arrival: Wheelchair Information source: Patient Notes: Patient presents with a 5-day history of lower extremity swelling and pain. Patient also reports right-sided anterior chest pain for the past 5 days as well. Patient denies any difficulty breathing. Patient is complaining of some urinary frequency. hx: Diabetes, hypertension, CHF, cholecystectomy I have greeted and performed a rapid initial assessment of this patient. A comprehensive ED assessment and evaluation of the patient, analysis of test results and completion of the medical decision making process will be conducted by additional ED providers. TRAVEL OUTSIDE OF THE [place] IN LAST 30 DAYS: No - Related Data Allergies/Adverse Reactions: No Known Allergies Allergy (Verified 09/13/18 23:13) Past Medical History - Social History Chew tobacco use (# tins/day): No Frequency of alcohol use: None Drug Abuse: None - Past Medical History Cardiac Medical History: Reports: Hx Hypercholesterolemia, Hx Hypertension Pulmonary Medical History: Reports: Hx Bronchitis Neurological Medical History: Endocrine Medical History: Reports: Hx Diabetes Mellitus Type 2 Renal/ Medical History: Reports: Hx Kidney Stones. Denies: Hx Peritoneal Dialysis GI Medical History: Reports: Hx Gastritis, Hx Gastroesophageal Reflux Disease Musculoskeltal Medical History: Reports Hx Arthritis Psychiatric Medical History: Reports: Hx Depression Infectious Medical History: Past Surgical History: Reports: Hx Section - X1, Hx Cholecystectomy, Hx Hysterectomy, Hx Inguinal Hernia - Immunizations Immunizations up to date: No Hx Diphtheria, Pertussis, Tetanus Vaccination: No History of Influenza Vaccine for 02/2017 - 07/2017 Season: Refused Physical Exam - Vital signs Vitals: Temp Pulse Resp BP Pulse Ox 98.1 F 86 18 145/75 H 97 09/19/18 18:39 09/19/18 18:39 09/19/18 18:39 09/19/18 18:39 09/19/18 18:39 - Extremities General lower extremity: Edema - 3-4+ edema to bilateral lower extremities Course - Vital Signs Vital signs: Temp Pulse Resp BP Pulse Ox 98.1 F 86 18 145/75 H 97 09/19/18 18:39 09/19/18 18:39 09/19/18 18:39 09/19/18 18:39 09/19/18 18:39 Doctor's Discharge - Discharge Referrals: CALDERON MOSES MD [Primary Care Provider] - Follow up as needed
[2018-09-19 20:05] LABS: ABSOLUTE BASOPHILS # (AUTO) 0.1 10^3/uL (0.0-0.2); ABSOLUTE EOSINOPHILS # (AUTO) 0.1 10^3/uL (0.0-0.6); ABSOLUTE LYMPHOCYTES (AUTO) 2.3 10^3/uL (0.5-4.7); ABSOLUTE MONOCYTES (AUTO) 0.5 10^3/uL (0.1-1.4); ABSOLUTE NEUT (AUTO) 7.3 10^3/uL (1.7-8.2); BASOPHILS % (AUTO) 0.8 % (0-2); EOSINOPHILS % (AUTO) 1.1 % (0-6); HEMATOCRIT 40.7 % (36.0-47.0); HEMOGLOBIN 13.6 g/dL (12.0-15.5); MEAN CORPUSCULAR HEMOGLOBIN 27.8 pg (27.0-33.4); MEAN CORPUSCULAR HGB CONC 33.5 g/dL (32.0-36.0); MEAN CORPUSCULAR VOLUME 83 fl (80-97); MONOCYTES % (AUTO) 5.1 % (3-13); PLATELET COUNT 567 10^3/uL (150-450); RED BLOOD COUNT 4.89 10^6/uL (3.72-5.28); RED CELL DISTRIBUTION WIDTH 17.1 % (11.5-14.0); TOTAL CELLS COUNTED % (AUTO) 100 %; WHITE BLOOD COUNT 10.3 10^3/uL (4.0-10.5)
--- NOTE | 2018-09-19 20:31 | RADIOLOGY REPORT (SQ) ---
XR CHEST 2 VIEWS HISTORY: Chest pain. Peripheral edema. COMPARISON: 07/24/2018 FINDINGS: The heart size is normal. No consolidation, pleural effusion, or pneumothorax is seen. There are no acute bony findings. IMPRESSION: No evidence of acute cardiopulmonary disease.
[2018-09-19 20:44] LABS: CREATINE KINASE MB 0.94 ng/mL (<4.55)
[2018-09-19 20:48] LABS: TROPONIN I 0.137 ng/mL
[2018-09-19 22:23] LABS: ALANINE AMINOTRANSFERASE 38 U/L (9-52); ALBUMIN 3.9 g/dL (3.5-5.0); ALKALINE PHOSPHATASE 105 U/L (38-126); ANION GAP 5 (5-19); ASPARTATE AMINO TRANSFERASE 19 U/L (14-36); BILIRUBIN,DIRECT 0.3 mg/dL (0.0-0.4); BILIRUBIN,TOTAL 0.5 mg/dL (0.2-1.3); BLOOD UREA NITROGEN 18 mg/dL (7-20); CALCIUM 10.1 mg/dL (8.4-10.2); CARBON DIOXIDE 29 mmol/L (22-30); CHLORIDE 105 mmol/L (98-107); CREATINE KINASE 80 U/L (30-135); GLUCOSE 107 mg/dL (75-110); POTASSIUM 4.6 mmol/L (3.6-5.0); SODIUM 139.3 mmol/L (137-145); TOTAL PROTEIN 6.8 g/dL (6.3-8.2)
[2018-09-19 22:46] LABS: APPEARANCE,URINE TURBID; BILIRUBIN,URINE NEGATIVE (NEGATIVE); COLOR,URINE AMBER; GLUCOSE, URINE NEGATIVE (NEGATIVE); KETONES,URINE NEGATIVE (NEGATIVE); LEUKOCYTE ESTERASE,URINE NEGATIVE (NEGATIVE); NITRITE,URINE NEGATIVE (NEGATIVE); PROTEIN,URINE NEGATIVE (NEGATIVE); URINE SPECIFIC GRAVITY 1.023
[2018-09-19] MEDS ORDERED: FUROSEMIDE INJ/PF 40 MG/4 ML SDV IV ONE (22:58)
[2018-09-19] MEDS ORDERED: NITROGLYCERIN 2% OINTMENT 1 GM PACKET TP ONE (23:00)
--- NOTE | 2018-09-20 00:16 | ER Document Report ---
ED General - General Chief Complaint: Pedal Edema Stated Complaint: SWOLLEN ANKLES Time Seen by Provider: 09/19/18 19:35 Mode of Arrival: Wheelchair Notes: 53-year-old female presents with a 5-day history of lower extremity swelling and pain. Patient also reports right-sided anterior chest pain for the past 5 days as well. Patient denies any difficulty breathing. She states this been going on and off for the last 5 days. She is noticed more swelling and pain to her legs she states it is both legs not one in particular. She is denied any cough denies fever chills or sore throat complains of some chest discomfort. Patient complains of some right-sided chest discomfort which is reproducible. The patient denies any shortness of breath. States her legs have been are usually swollen but they have been worse over the last 5 days. States she is not on a water pill. TRAVEL OUTSIDE OF THE [place] IN LAST 30 DAYS: No - Related Data Allergies/Adverse Reactions: No Known Allergies Allergy (Verified 09/13/18 23:13) Past Medical History - General Information source: Patient - Social History Smoking Status: Former Smoker Chew tobacco use (# tins/day): No Frequency of alcohol use: None Drug Abuse: None Family History: Reviewed & Not Pertinent, CAD, CVA, DM, Hyperlipidemia, Hypertension Patient has suicidal ideation: No Patient has homicidal ideation: No - Past Medical History Cardiac Medical History: Reports: Hx Hypercholesterolemia, Hx Hypertension Pulmonary Medical History: Reports: Hx Bronchitis Neurological Medical History: Endocrine Medical History: Reports: Hx Diabetes Mellitus Type 2 Renal/ Medical History: Reports: Hx Kidney Stones. Denies: Hx Peritoneal Dialysis GI Medical History: Reports: Hx Gastritis, Hx Gastroesophageal Reflux Disease Musculoskeletal Medical History: Reports Hx Arthritis Psychiatric Medical History: Reports: Hx Depression Infectious Medical History: Past Surgical History: Reports: Hx Section - X1, Hx Cholecystectomy, Hx Hysterectomy, Hx Inguinal Hernia - Immunizations Immunizations up to date: No Hx Diphtheria, Pertussis, Tetanus Vaccination: No Review of Systems - Review of Systems Constitutional: denies: Chills, Fever Cardiovascular: Chest pain, Edema. denies: Palpitations, Dyspnea Respiratory: denies: Hurts to breathe, Short of breath Gastrointestinal: denies: Nausea, Vomiting Genitourinary: denies: Dysuria, Hematuria Neurological/Psychological: denies: Headaches -: Yes All other systems reviewed and negative Physical Exam - Vital signs Vitals: Temp Pulse Resp BP Pulse Ox 98.1 F 86 18 145/75 H 97 09/19/18 18:39 09/19/18 18:39 09/19/18 18:39 09/19/18 18:39 09/19/18 18:39 - Notes Notes: GENERAL_APPEARANCE: well_nourished, alert, cooperative, no_acute_distress, no_obvious_discomfort. VITALS: reviewed, see vital signs table. HEAD: no_swelling\tenderness on the head. EYES: PERRL, EOMI, conjunctiva_clear. NOSE: no_nasal_discharge. MOUTH: (-)decreased moisture. THROAT: no_tonsilar_inflammation, no_airway_obstruction. no_lymphadenopathy NECK: supple, no_neck_tenderness, (-)thyromegaly. BACK: no_back_tenderness. CHEST_WALL: no_chest_tenderness. LUNGS: no_wheezing, very fine crackles in the bases, no_rhonchi, (-)accessory muscle use, good air exchange bilateral. HEART: normal_rate, normal_rhythm, normal_S1, normal_S2, (-)S3, (-)S4, no_murmur, no_rub. ABDOMEN: soft, no_abd_tenderness, (-)guarding, (-)rebound, no_organomegaly, no_abd_masses. EXTREMITIES: good pulses in all_extremities, no_swelling\tenderness in the extremities, 3+ pitting to thighs SKIN: warm, dry, good_color, no_rash. MENTAL_STATUS: speech_clear, oriented_X_3, normal_affect, responds_appro priately to questions. Course - Re-evaluation Re-evalutation: 09/20/18 00:15 Patient has 3+ pitting edema to the thighs. We will diurese her and give her 40 of Lasix she is not on any diuretics for home blood pressure is elevated but this is likely due to fluid overload. The patient's chest discomfort is reproducible on the right right parasternal discomfort. We are getting a CTA of the chest to rule out any kind of pulmonary embolism. My suspicion is low for this. Troponin first 1 was 0.1 3-0 repeat troponin after 4 hours was decreased. Likely because we are diuresing her. Dr. Johnson is on-call for Dr. Jude Caraballo. Patient will likely need diuresis further. There is no ST elevation on her EKG here. I think all her troponin elevation is in the marginal zone is due to hypertension and fluid overload. Once she is diuresis we will continue to drop. 09/20/18 02:10 CT the chest is negative for PE. - Vital Signs Vital signs: Temp Pulse Resp BP Pulse Ox 98.1 F 86 15 178/103 H 100 09/19/18 18:39 09/19/18 18:39 09/20/18 01:01 09/20/18 01:01 09/20/18 01:01 - Laboratory Result Diagrams: 09/19/18 19:48 09/19/18 21:40 Laboratory results interpreted by me: 09/19/18 09/19/18 18:45 19:48 RDW 17.1 H Plt Count 567 H Urine Urobilinogen 4.0 H - Diagnostic Test Radiology reviewed: Reports reviewed Radiology results interpreted by me: 09/20/18 00:15 Chest X-Ray 09/19/18 19:37 IMPRESSION: No evidence of acute cardiopulmonary disease. 09/20/18 02:10 Chest X-Ray 09/19/18 19:37 IMPRESSION: No evidence of acute cardiopulmonary disease. - EKG Interpretation by Me Rate: Normal Rhythm: NSR When compared to previous EKG there are: No significant change Additional EKG results interpreted by me: 09/20/18 00:14 Sinus rhythm at [address] abnormalities noted no change compared to old EKG Discharge - Discharge Clinical Impression: HTN (hypertension) Qualifiers: Hypertension type: essential hypertension Qualified Code(s): I10 - Essential (primary) hypertension CHF exacerbation Qualifiers: Heart failure type: systolic Qualified Code(s): I50.23 - Acute on chronic systolic (congestive) heart failure Disposition: ADMITTED OBSERVATION Admitting Provider: Elizabeth Unit Admitted: Telemetry
[2018-09-20] MEDS ORDERED: MORPHINE SULFATE 10 MG/ML INJ IV ONE (00:18)
[2018-09-20] MEDS ORDERED: ONDANSETRON HCL INJ/PF 4 MG/2 ML SDV IV ONE (00:18)
[2018-09-20] MEDS ORDERED: CLONIDINE HCL 0.1 MG TABLET PO ONE (00:45)
[2018-09-20] MEDS: ASPIRIN 81 MG TABLET, CHEWABLE PO SCH ×2 (01:43→09:35)
--- NOTE | 2018-09-20 02:03 | RADIOLOGY REPORT (SQ) ---
EXAM DESCRIPTION: CT CHEST ANGIOGRAPHY WITHOUT THEN WITH IV CONTRAST COMPLETED DATE/TME: 09/20/2018 00:12 CLINICAL HISTORY: 53 years Female, cp / sob / BLE swelling x 1 week Comparison: None. Technique: IV contrast. Coronal and sagittal reformat. 3d reconstruction. This exam was performed according to our departmental dose-optimization program, which includes automated exposure control, adjustment of the mA and/or kV according to patient size and/or use of iterative reconstruction technique.[facility]: Dose Right [facility]: CareDose [facility]: Dose Right [facility]: Teradose 4D [facility]: [employer] LIMITATIONS: None Findings: No pulmonary embolus. No right ventricular strain. Clear lungs. Cholecystectomy. Stool retention. Diffuse idiopathic skeletal hyperostosis of the lower thoracic spine. Diverticulosis. Inferior neck, axillae, mediastinum, lungs, airway, lymphatics, heart, vasculature, upper abdomen, and musculoskeleton appear otherwise unremarkable. Impression: No pulmonary embolus. No acute cardiopulmonary findings.
[2018-09-20] MEDS ORDERED: DEXTROSE 50%-WATER SYRINGE 25 GM/50 ML DOSE IV PRN (04:30)
[2018-09-20] MEDS ORDERED: DEXTROSE 40% GEL 15 GM TUBE X 2 PO PRN (04:30)
[2018-09-20] MEDS ORDERED: DEXTROSE 50%-WATER SYRINGE 12.5 GM/25 ML DOSE IV PRN (04:30)
[2018-09-20] MEDS ORDERED: DEXTROSE 40% GEL 15 GM TUBE PO PRN (04:30)
[2018-09-20] MEDS ORDERED: GLUCAGON,HUMAN RECOMB 1 MG INJ IM PRN (04:30)
[2018-09-20] MEDS: INSULIN LISPRO 100 UNIT/ML 3 ML VIAL SUBCUT SCH ×2 (08:05→13:08)
[2018-09-20] MEDS ORDERED: ACETAMINOPHEN 325 MG TABLET PO PRN (08:20)
--- NOTE | 2018-09-20 08:35 | EKG REPORT ---
SEVERITY:- NORMAL ECG - SINUS RHYTHM : Confirmed by: Patrick Ricks MD 20-Sep-2018 08:34:34
--- NOTE | 2018-09-20 08:35 | EKG REPORT ---
SEVERITY:- NORMAL ECG - SINUS RHYTHM : Confirmed by: Patrick Ricks MD 20-Sep-2018 08:34:41
--- NOTE | 2018-09-20 08:35 | EKG REPORT ---
SEVERITY:- NORMAL ECG - SINUS RHYTHM : Confirmed by: Patrick Ricks MD 20-Sep-2018 08:34:49
[2018-09-20 11:10] LABS: CREATINE KINASE MB 0.35 ng/mL (<4.55); TROPONIN I 0.058 ng/mL
[2018-09-20 12:12] VITALS: BP 108/50
--- NOTE | 2018-09-20 13:03 | PDOC H&P ---
History of Present Illness Admission Date/PCP: 09/20/18 00:38 CALDERON JOSUÉ History of Present Illness: LENY LEW is a 53 year old female` she came to the emergency room for evaluation of 5-day history of lower extremity swelling, pain of the ankle, she also stated that she has right-sided chest pain for the last 5 days, the chest pain is reproducible on palpation of the chest wall, there is no shortness of breath. This patient is very obese the body mass index is 51, in the emergency room CTA chest was done, there was no pulmonary embolus there was no acute pulmonary findings on the CTA chest. The troponin was drawn in the emergency room, it was slightly elevated at 0.1, the significance of this is not clear, I am not sure why it was drawn in the ER because of the clinical setting is not appropriate for troponin to be assayed . I saw the patient on the floor, she is very stable, I do not see any indication for inpatient care at this time. I was told by the nurses that the patient is homeless, it seems that she is trying to stay in the hospital apparently because she is homeless. When I indicated to her that she be discharged because I do not see an indication for inpatient care, she was very agitated, she says she has a headache and that it is senseless for to be discharged because she has pain in her ankle. I also advised that the leg swelling is most likely from a weight, she also got upset about that, she said everyone blames the weight for leg swelling. Past Medical History Cardiac Medical History: Reports: Hyperlipidema, Hypertension Pulmonary Medical History: Reports: Bronchitis Neurological Medical History: Endocrine Medical History: Reports: Diabetes Mellitus Type 2, Obesity GI Medical History: Reports: Gastroesophageal Reflux Disease Musculoskeltal Medical History: Reports: Arthritis Psychiatric Medical History: Reports: Depression Past Surgical History Past Surgical History: Reports: Section - X1, Cholecystectomy, Hy sterectomy Social History Smoking Status: Former Smoker Cigarettes Packs Per Day: 0.1 Number of Years Smokin Frequency of Alcohol Use: None Hx Recreational Drug Use: No Drugs: None Hx Prescription Drug Abuse: No Family History Family History: Reviewed & Not Pertinent, CAD, CVA, DM, Hyperlipidemia, Hypertension Parental Family History Reviewed: Yes Children Family History Reviewed: Yes Sibling(s) Family History Reviewed.: Yes Medication/Allergy Home Medications: Insulin Aspart [Novolog Flexpen] 0 unit SUBCUT .SLD SCALE 09/20/18 Insulin Glargine,Hum.rec.anlog [Lantus Insulin 100 Unit/1 ml 10 ml] 40 unit SUBCUT QHS 09/20/18 Ketorolac Tromethamine [Acular] 1 drop OU QID 09/20/18 Metformin HCl [Glucophage] 1,000 mg PO BIDBS 09/20/18 Ramipril [Altace 10 mg Capsule] 1 cap PO DAILY 09/20/18 Simvastatin [Zocor 10 mg Tablet] 10 mg PO QHS 09/20/18 Sitagliptin Phosphate [Januvia] 100 mg PO DAILY 09/20/18 Allergies/Adverse Reactions: No Known Allergies Allergy (Verified 09/13/18 23:13) Review of Systems Constitutional: ABSENT: chills, fever(s), headache(s), weight gain, weight loss Eyes: ABSENT: visual disturbances Ears: ABSENT: hearing changes Cardiovascular: PRESENT: chest pain - Right-sided chest pain. ABSENT: dyspnea on exertion, edema, orthropnea, palpitations Respiratory: ABSENT: cough, hemoptysis Gastrointestinal: ABSENT: abdominal pain, constipation, diarrhea, hematemesis, hematochezia, nausea, vomiting Genitourinary: ABSENT: dysuria, hematuria Musculoskeletal: PRESENT: other - Ankle pain. ABSENT: joint swelling Integumentary: ABSENT: rash, wounds Neurological: ABSENT: abnormal gait, abnormal speech, confusion, dizziness, focal weakness, syncope Psychiatric: ABSENT: anxiety, depression, homidical ideation, suicidal ideation Endocrine: ABSENT: cold intolerance, heat intolerance, menstrual abnormalities, polydipsia, polyuria Hematologic/Lymphatic: ABSENT: easy bleeding, easy bruising, lymphadenopathy Physical Exam Vital Signs: Temp Pulse Resp BP Pulse Ox 97.7 F 75 14 108/50 L 98 09/20/18 12:05 09/20/18 12:05 09/20/18 12:05 09/20/18 12:05 09/20/18 12:05 Intake & Output 09/19/18 09/20/18 09/21/18 06:59 06:59 06:59 Intake Total 932 Output Total 1 Balance 931 Weight 144.6 kg General appearance: PRESENT: no acute distress, obese, well-developed, well- nourished Head exam: PRESENT: atraumatic, normocephalic Eye exam: PRESENT: conjunctiva pink, EOMI, PERRLA Ear exam: PRESENT: normal external ear exam Mouth exam: PRESENT: moist, tongue midline Neck exam: PRESENT: full ROM Respiratory exam: PRESENT: clear to auscultation sarah Cardiovascular exam: PRESENT: RRR, +S1, +S2, other - tenderness on palpation of the chest wall Pulses: PRESENT: normal dorsalis pedis pul, +2 pedal pulses bilateral Vascular exam: PRESENT: normal capillary refill GI/Abdominal exam: PRESENT: normal bowel sounds, soft Rectal exam: PRESENT: deferred Extremities exam: PRESENT: pedal edema Neurological exam: PRESENT: alert, awake, oriented to person, oriented to place, oriented to time, oriented to situation, CN II-XII grossly intact Psychiatric exam: PRESENT: appropriate affect, normal mood Skin exam: PRESENT: dry, intact, warm Results Laboratory Results: 09/19/18 19:48 09/19/18 21:40 09/19/18 09/19/18 09/19/18 18:45 19:48 19:48 WBC 10.3 RBC 4.89 Hgb 13.6 Hct 40.7 MCV 83 MCH 27.8 MCHC 33.5 RDW 17.1 H Plt Count 567 H Seg Neutrophils % 71.0 Lymphocytes % 22.0 Monocytes % 5.1 Eosinophils % 1.1 Basophils % 0.8 Absolute Neutrophils 7.3 Absolute Lymphocytes 2.3 Absolute Monocytes 0.5 Absolute Eosinophils 0.1 Absolute Basophils 0.1 Sodium Cancelled Potassium Cancelled Chloride Cancelled Carbon Dioxide Cancelled Anion Gap Cancelled BUN Cancelled Creatinine Cancelled Est GFR ( Amer) Cancelled Est GFR (Non-Af Amer) Cancelled Glucose Cancelled Calcium Cancelled Total Bilirubin Cancelled AST Cancelled ALT Cancelled Alkaline Phosphatase Cancelled Total Protein Cancelled Albumin Cancelled Urine Color ADRI Urine Appearance TURBID Urine pH 5.0 Ur Specific [place] 1.023 Urine Protein NEGATIVE Urine Glucose (UA) NEGATIVE Urine Ketones NEGATIVE Urine Blood NEGATIVE Urine Nitrite NEGATIVE Ur Leukocyte Esterase NEGATIVE Urine WBC (Auto) 1 Urine RBC (Auto) 0 09/19/18 21:40 WBC RBC Hgb Hct MCV MCH MCHC RDW Plt Count Seg Neutrophils % Lymphocytes % Monocytes % Eosinophils % Basophils % Absolute Neutrophils Absolute Lymphocytes Absolute Monocytes Absolute Eosinophils Absolute Basophils Sodium 139.3 Potassium 4.6 Chloride 105 Carbon Dioxide 29 Anion Gap 5 BUN 18 Creatinine 0.63 Est GFR ( Amer) > 60 Est GFR (Non-Af Amer) > 60 Glucose 107 Calcium 10.1 Total Bilirubin 0.5 AST 19 ALT 38 Alkaline Phosphatase 105 Total Protein 6.8 Albumin 3.9 Urine Color Urine Appearance Urine pH Ur Specific [place] Urine Protein Urine Glucose (UA) Urine Ketones Urine Blood Urine Nitrite Ur Leukocyte Esterase Urine WBC (Auto) Urine RBC (Auto) 09/19/18 09/19/18 09/19/18 19:48 19:48 21:40 Creatine Kinase Cancelled 80 CK-MB (CK-2) 0.94 Troponin I 0.137 NT-Pro-B Natriuret Pep 189 09/19/18 09/20/18 09/20/18 23:05 10:14 10:14 Creatine Kinase 51 CK-MB (CK-2) 0.35 Troponin I 0.103 0.058 NT-Pro-B Natriuret Pep Impressions: Chest X-Ray 09/19/18 19:37 IMPRESSION: No evidence of acute cardiopulmonary disease. Assessment & Plan - Diagnosis (1) Right-sided chest wall pain Is this a current diagnosis for this admission?: Yes Plan: She has right sided chest pain ,reproducible on palpation of the chest (2) Morbid obesity due to excess calories Is this a current diagnosis for this admission?: Yes (3) Right ankle pain Qualifiers: Chronicity: unspecified Qualified Code(s): M25.571 - Pain in right ankle and joints of right foot Is this a current diagnosis for this admission?: Yes
[2018-09-20] MEDS ORDERED: FUROSEMIDE INJ/PF 40 MG/4 ML SDV ONE (13:20)
[2018-09-20] MEDS ORDERED: KETOROLAC TROMETHAMINE OU SCH (14:00)
[2018-09-20] MEDS ORDERED: RAMIPRIL 10 MG CAPSULE PO SCH (15:00)
[2018-09-20] MEDS ORDERED: FUROSEMIDE INJ/PF 40 MG/4 ML SDV IV ONE (15:00)
[2018-09-20] MEDS ORDERED: SITAGLIPTIN PHOSPHATE 50 MG TABLET PO SCH (15:00)
[2018-09-20] MEDS ORDERED: METFORMIN HCL 500 MG TABLET PO SCH (16:00)
[2018-09-20] MEDS ORDERED: SIMVASTATIN 10 MG TABLET PO SCH (22:00)
[2018-09-20] MEDS ORDERED: INSULIN GLARGINE,HUM.REC.ANLOG 1,000 UNIT/10 ML VIAL SUBCUT SCH (22:00)
== END 2018-09-20 14:41 | disposition home or self-care (01) ==
LOC: ER 17:52 → EH 09-20 00:38 → 3W 09-20 02:18
PROVIDERS: ADMIT Internal Medicine; ATTEND Internal Medicine
DX: R07.89 Other chest pain (principal); E66.01 Morbid (severe) obesity due to excess calories; M25.571 Pain in right ankle and joints of right foot; Z68.43 Body mass index [BMI] 50.0-59.9, adult; R45.1 Restlessness and agitation; R51 Headache; M79.89 Other specified soft tissue disorders; I10 Essential (primary) hypertension; E78.5 Hyperlipidemia, unspecified; E11.9 Type 2 diabetes mellitus without complications; R09.89 Other specified symptoms and signs involving the circulatory and respiratory systems; Z59.0 Homelessness; Z79.899 Other long term (current) drug therapy; Z90.49 Acquired absence of other specified parts of digestive tract; Z82.49 Family history of ischemic heart disease and other diseases of the circulatory system; Z87.891 Personal history of nicotine dependence; Z79.4 Long term (current) use of insulin
CPT/HCPCS: 93005 ×2; 99285; 96374; 96375; 36415 ×2; 82553 ×2; 82962; 82550 ×2; 85025; 80053; 81001; 84484 ×2; 83880; 71046; 71275; 93010 ×2; G0378 ×2; A9270 ×5; J1940 ×2; J2270; J2405

== ENCOUNTER 2019-03-18 14:54 | Emergency (ER) | payer MEDICARE, MEDICAID ==
[2019-03-18] MEDS ORDERED: ASPIRIN 81 MG TABLET, CHEWABLE PO ONE (15:32)
--- NOTE | 2019-03-18 15:34 | ER Document Report ---
ED Medical Screen (RME) - General Chief Complaint: Leg Swelling Stated Complaint: LEG SWELLING Time Seen by Provider: 03/18/19 15:32 Primary Care Provider: CALDERON MOSES MD [Primary Care Provider] - Follow up as needed Information source: Patient Notes: Patient presents complaining of bilateral lower extremity swelling for the past week. Patient does feel as though she is having generalized swelling as well. Patient reports chest pain that started yesterday with shortness of breath. No cough. Patient does have a history of hypertension, congestive heart failure as well as diabetes. I have greeted and performed a rapid initial assessment of this patient. A comprehensive ED assessment and evaluation of the patient, analysis of test results and completion of the medical decision making process will be conducted by additional ED providers. TRAVEL OUTSIDE OF THE [place] IN LAST 30 DAYS: No - Related Data Allergies/Adverse Reactions: No Known Allergies Allergy (Verified 03/18/19 15:27) Past Medical History - Past Medical History Cardiac Medical History: Reports: Hx Hypercholesterolemia, Hx Hypertension Pulmonary Medical History: Reports: Hx Bronchitis Neurological Medical History: Endocrine Medical History: Reports: Hx Diabetes Mellitus Type 2 Renal/ Medical History: Reports: Hx Kidney Stones. Denies: Hx Peritoneal Dialysis GI Medical History: Reports: Hx Gastritis, Hx Gastroesophageal Reflux Disease Musculoskeltal Medical History: Reports Hx Arthritis Psychiatric Medical History: Reports: Hx Depression Infectious Medical History: Past Surgical History: Reports: Hx Section - X1, Hx Cholecystectomy, Hx Hysterectomy, Hx Inguinal Hernia - Immunizations Immunizations up to date: No Hx Diphtheria, Pertussis, Tetanus Vaccination: No Physical Exam - Vital signs Vitals: Temp Pulse Resp BP Pulse Ox 98.0 F 91 18 184/95 H 98 03/18/19 15:08 03/18/19 15:08 03/18/19 15:08 03/18/19 15:08 03/18/19 15:08 - General General appearance: Appears well Notes: Bilateral lower extremity swelling, left worse than right, respirations unlabored Course - Vital Signs Vital signs: Temp Pulse Resp BP Pulse Ox 98.0 F 91 18 184/95 H 98 03/18/19 15:08 03/18/19 15:08 03/18/19 15:08 03/18/19 15:08 03/18/19 15:08 Doctor's Discharge - Discharge Referrals: CALDERON MOSES MD [Primary Care Provider] - Follow up as needed
--- NOTE | 2019-03-18 16:18 | RADIOLOGY REPORT (SQ) ---
EXAM DESCRIPTION: CHEST 2 VIEWS COMPLETED DATE/TIME: 03/18/2019 4:07 pm REASON FOR STUDY: cp COMPARISON: 09/19/2018 EXAM PARAMETERS: NUMBER OF VIEWS: two views TECHNIQUE: Digital Frontal and Lateral radiographic views of the chest acquired. RADIATION DOSE: NA LIMITATIONS: none FINDINGS: LUNGS AND PLEURA: No opacities, masses or pneumothorax. No pleural effusion. MEDIASTINUM AND HILAR STRUCTURES: No masses or contour abnormalities. HEART AND VASCULAR STRUCTURES: Heart normal size. No evidence for failure. BONES: No acute findings. HARDWARE: None in the chest. OTHER: No other significant finding. IMPRESSION: NO ACUTE RADIOGRAPHIC FINDING IN THE CHEST. TECHNICAL DOCUMENTATION: JOB ID: [id number] [employer]- All Rights Reserved Reading location - IP/workstation name: [email or web address]
[2019-03-18 16:36] LABS: ABSOLUTE BASOPHILS # (AUTO) 0.2 10^3/uL (0.0-0.2); ABSOLUTE EOSINOPHILS # (AUTO) 0.2 10^3/uL (0.0-0.6); ABSOLUTE LYMPHOCYTES (AUTO) 1.7 10^3/uL (0.5-4.7); ABSOLUTE MONOCYTES (AUTO) 0.3 10^3/uL (0.1-1.4); ABSOLUTE NEUT (AUTO) 7.2 10^3/uL (1.7-8.2); BASOPHILS % (AUTO) 1.6 % (0-2); EOSINOPHILS % (AUTO) 1.8 % (0-6); HEMATOCRIT 39.6 % (36.0-47.0); LYMPHOCYTES % (AUTO) 17.9 % (13-45); MEAN CORPUSCULAR HEMOGLOBIN 27.1 pg (27.0-33.4); MEAN CORPUSCULAR HGB CONC 32.9 g/dL (32.0-36.0); MEAN CORPUSCULAR VOLUME 83 fl (80-97); MONOCYTES % (AUTO) 3.4 % (3-13); PLATELET COUNT 553 10^3/uL (150-450); RED CELL DISTRIBUTION WIDTH 16.1 % (11.5-14.0); SEGMENTED NEUTROPHILS % (AUTO) 75.3 % (42-78); TOTAL CELLS COUNTED % (AUTO) 100 %; WHITE BLOOD COUNT 9.5 10^3/uL (4.0-10.5)
[2019-03-18 16:49] LABS: ALBUMIN 3.9 g/dL (3.5-5.0); ALKALINE PHOSPHATASE 100 U/L (38-126); ANION GAP 9 (5-19); ASPARTATE AMINO TRANSFERASE 54 U/L (14-36); BILIRUBIN,DIRECT 0.1 mg/dL (0.0-0.4); BILIRUBIN,TOTAL 0.5 mg/dL (0.2-1.3); BLOOD UREA NITROGEN 8 mg/dL (7-20); CALCIUM 9.4 mg/dL (8.4-10.2); CARBON DIOXIDE 29 mmol/L (22-30); CHLORIDE 105 mmol/L (98-107); GLUCOSE 142 mg/dL (75-110); POTASSIUM 3.7 mmol/L (3.6-5.0); TOTAL PROTEIN 6.9 g/dL (6.3-8.2)
[2019-03-18 16:59] LABS: NT PRO BNP 325 pg/mL (5-900)
[2019-03-18 17:00] LABS: TROPONIN I < 0.012 ng/mL
--- NOTE | 2019-03-18 18:38 | ER Document Report ---
ED General - General Chief Complaint: Leg Swelling Stated Complaint: LEG SWELLING Time Seen by Provider: 03/18/19 15:32 Primary Care Provider: CALDERON MOSES MD [Primary Care Provider] - Follow up as needed Notes: 53-year-old female with hypertension and insulin-dependent diabetes mellitus presents with a 5-day history of lateral lower extremity swelling and pain. Patient also reports right-sided anterior chest pain for the past 5 days as well. Patient denies any difficulty breathing. She states the pain is intermittent and reproducible. She said she has difficulty ambulating but when I clarified she states that it is due to the arthritis in her knees. Patient denies any cough, acute shortness of breath, fever or chills. She states her legs are typically swollen but they are worse and she had a hard time putting her shoes on today. Patient states that she was recently placed on a diuretic. TRAVEL OUTSIDE OF THE [place] IN LAST 30 DAYS: No - Related Data Allergies/Adverse Reactions: No Known Allergies Allergy (Verified 03/18/19 15:27) Home Medications: metformin, januvia, water pill, states doesnt know all the meds and list is at home. Past Medical History - General Information source: Patient - Social History Smoking Status: Unknown if Ever Smoked Chew tobacco use (# tins/day): No Frequency of alcohol use: None Drug Abuse: None Family History: Reviewed & Not Pertinent, CAD, CVA, DM, Hyperlipidemia, Hypertension Patient has suicidal ideation: No Patient has homicidal ideation: No - Past Medical History Cardiac Medical History: Reports: Hx Hypercholesterolemia, Hx Hypertension Pulmonary Medical History: Reports: Hx Bronchitis Neurological Medical History: Endocrine Medical History: Reports: Hx Diabetes Mellitus Type 2 Renal/ Medical History: Reports: Hx Kidney Stones. Denies: Hx Peritoneal Dialysis GI Medical History: Reports: Hx Gastritis, Hx Gastroesophageal Reflux Disease Musculoskeletal Medical History: Reports Hx Arthritis Psychiatric Medical History: Reports: Hx Depression Infectious Medical History: Past Surgical History: Reports: Hx Section - X1, Hx Cholecystectomy, Hx Hysterectomy, Hx Inguinal Hernia - Immunizations Immunizations up to date: No Hx Diphtheria, Pertussis, Tetanus Vaccination: No Hx Pneumococcal Vaccination: 05/27/17 Review of Systems - Review of Systems Constitutional: See HPI EENT: No symptoms reported Cardiovascular: See HPI Respiratory: See HPI Gastrointestinal: See HPI Genitourinary: No symptoms reported Female Genitourinary: No symptoms reported Musculoskeletal: See HPI Skin: No symptoms reported Hematologic/Lymphatic: No symptoms reported Neurological/Psychological: No symptoms reported Physical Exam - Vital signs Vitals: Temp Pulse Resp BP Pulse Ox 98.0 F 91 18 184/95 H 98 03/18/19 15:08 03/18/19 15:08 03/18/19 15:08 03/18/19 15:08 03/18/19 15:08 - Notes Notes: PHYSICAL EXAMINATION: Reviewed vital signs and charting by RN GENERAL: Obese. Alert, interacts well. No acute distress. HEAD: Normocephalic, atraumatic. EYES: Pupils equal and round. Extraocular movements intact. ENT: Oral mucosa moist, tongue midline. NECK: Full range of motion. Trachea midline. CHEST: Tenderness to palpation right anterior chest that is reproducible LUNGS: Clear to auscultation bilaterally, no wheezes, rales, or rhonchi. No respiratory distress. HEART: Regular rate and rhythm. No murmur ABDOMEN: Obese, soft, non-tender. No distention. Bowel sounds present EXTREMITIES: Moves all 4 extremities spontaneously. Bilateral lower extremity nonpitting edema unclear if this is baseline or acute, No cyanosis. PSYCH: Normal affect, normal mood. SKIN: Warm, dry, normal turgor. No rashes or lesions noted. Course - Re-evaluation Re-evalutation: 03/18/19 18:33 Patient is in no acute distress. Patient states that she has pain with ambulation but states this due to arthritis. Chest x-ray did not show any evidence of pulmonary vascular congestion or evidence of fluid overload, cardiac silhouette normal no evidence of cardiomegaly. EKG showed normal sinus rhythm with a rate of 71. Lab work all within normal limits, BNP 325 overall unremarkable. Wells score for pulmonary embolism 0 as I have a very low suspicion for PE. Troponin negative. I have very low suspicion for ACS, aortic dissection, aortic aneurysm. Patient's bilateral lower extremity swelling most likely due to habitus as there are no acute findings in the work-up. At this time I do deem the patient is stable for discharge with close follow-up with Dr. Moses. - Vital Signs Vital signs: Temp Pulse Resp BP Pulse Ox 98.0 F 91 18 184/95 H 98 03/18/19 15:08 03/18/19 15:08 03/18/19 15:08 03/18/19 15:08 03/18/19 15:08 - Laboratory Result Diagrams: 03/18/19 16:16 03/18/19 16:16 Laboratory results interpreted by me: 03/18/19 03/18/19 16:16 16:16 RDW 16.1 H Plt Count 553 H Glucose 142 H AST 54 H Discharge - Discharge Clinical Impression: Swelling of both lower extremities, Anterior chest wall pain Condition: Good Disposition: HOME, SELF-CARE Additional Instructions: Please follow-up with Dr. Moses tomorrow morning. Your work-up today did not reveal any concerning findings that would require hospitalization. They were all within normal limits, your chest x-ray was normal, your EKG was normal. Please return to the emergency department if you develop severe central chest pain, acute severe shortness of breath, you pass out, you cannot walk at all, or you have any other concerning symptoms. Referrals: CALDERON MOSES MD [Primary Care Provider] - 03/19/19 9:00 am
--- NOTE | 2019-03-18 19:00 | EKG REPORT ---
SEVERITY:- NORMAL ECG - SINUS RHYTHM : Confirmed by: Jemima Mason MD 18-Mar-2019 18:59:30
[2019-03-18 19:12] VITALS: BP 183/104
== END 2019-03-18 19:50 | disposition home or self-care (01) ==
LOC: ER 14:54
DX: M79.89 Other specified soft tissue disorders (principal); R07.89 Other chest pain; R60.0 Localized edema; E66.9 Obesity, unspecified; I10 Essential (primary) hypertension; E11.9 Type 2 diabetes mellitus without complications; Z79.84 Long term (current) use of oral hypoglycemic drugs
CPT/HCPCS: 93005; 36415; 85025; 80053; 84484; 83880; 71046; 93010; A9270; 99284

== ENCOUNTER 2019-08-06 20:25 | Emergency (ER) | payer MEDICARE, MEDICAID ==
[2019-08-06 20:39] VITALS: BP 147/87
== END 2019-08-06 21:43 | disposition left against medical advice (07) ==
LOC: ER 20:25
DX: Z53.21 Procedure and treatment not carried out due to patient leaving prior to being seen by health care provider (principal)

== ENCOUNTER 2019-08-10 18:18 | Emergency (ER) | payer MEDICARE, MEDICAID ==
--- NOTE | 2019-08-10 18:48 | ER Document Report ---
ED Medical Screen (RME) - General Chief Complaint: Congestion Stated Complaint: COUGH/CONGESTION Time Seen by Provider: 08/10/19 18:43 Primary Care Provider: CALDERON MOSES MD [Primary Care Provider] - Follow up as needed Mode of Arrival: Ambulatory Information source: Patient Notes: This 54-year-old female with history of diabetes presents emergency department w ith complaints of cough congestion since . Reports extreme short of breath. Reports she cannot walk around without getting short of breath. Also complains of chest tightness. Reports chest tightness all the time but increases pain when she coughs. Denies fever vomiting but reports some diarrhea. She did not get her flu vaccine. She reports she is not been around anybody with the coronavirus or exposed to it. I have greeted and performed a rapid initial assessment of this patient. A comprehensive ED assessment and evaluation of the patient, analysis of test results and completion of the medical decision making process will be conducted by additional ED providers. TRAVEL OUTSIDE OF THE [place] IN LAST 30 DAYS: No - Related Data Allergies/Adverse Reactions: No Known Allergies Allergy (Verified 03/18/19 15:27) Past Medical History - Past Medical History Cardiac Medical History: Reports: Hx Hypercholesterolemia, Hx Hypertension Pulmonary Medical History: Reports: Hx Bronchitis Neurological Medical History: Endocrine Medical History: Reports: Hx Diabetes Mellitus Type 2 Renal/ Medical History: Reports: Hx Kidney Stones. Denies: Hx Peritoneal Dialysis GI Medical History: Reports: Hx Gastritis, Hx Gastroesophageal Reflux Disease Musculoskeltal Medical History: Reports Hx Arthritis Psychiatric Medical History: Reports: Hx Depression Infectious Medical History: Past Surgical History: Reports: Hx Section - X1, Hx Cholecystectomy, Hx Hysterectomy, Hx Inguinal Hernia - Immunizations Immunizations up to date: No Hx Diphtheria, Pertussis, Tetanus Vaccination: No Physical Exam - Vital signs Vitals: Temp Pulse Resp BP Pulse Ox 99.7 F 110 H 20 142/94 H 98 08/10/19 18:24 08/10/19 18:24 08/10/19 18:24 08/10/19 18:24 08/10/19 18:24 Course - Vital Signs Vital signs: Temp Pulse Resp BP Pulse Ox 99.7 F 110 H 20 142/94 H 98 08/10/19 18:24 08/10/19 18:24 08/10/19 18:24 08/10/19 18:24 08/10/19 18:24 Doctor's Discharge - Discharge Referrals: CALDERON MOESS MD [Primary Care Provider] - Follow up as needed
--- NOTE | 2019-08-10 19:24 | RADIOLOGY REPORT (SQ) ---
EXAM DESCRIPTION: CHEST 2 VIEWS COMPLETED DATE/TIME: 08/10/2019 7:03 pm REASON FOR STUDY: cough cp COMPARISON: 03/18/2019 EXAM PARAMETERS: NUMBER OF VIEWS: two views TECHNIQUE: Digital Frontal and Lateral radiographic views of the chest acquired. RADIATION DOSE: NA LIMITATIONS: none FINDINGS: LUNGS AND PLEURA: No opacities, masses or pneumothorax. No pleural effusion. MEDIASTINUM AND HILAR STRUCTURES: No masses or contour abnormalities. HEART AND VASCULAR STRUCTURES: Heart normal size. No evidence for failure. BONES: No acute findings. HARDWARE: None in the chest. OTHER: No other significant finding. IMPRESSION: NO ACUTE RADIOGRAPHIC FINDING IN THE CHEST. TECHNICAL DOCUMENTATION: JOB ID: [id number] 2010 [employer]- All Rights Reserved Reading location - IP/workstation name: [email or web address]
[2019-08-10 19:50] LABS: ABSOLUTE BASOPHILS # (AUTO) 0.1 10^3/uL (0.0-0.2); ABSOLUTE LYMPHOCYTES (AUTO) 2.7 10^3/uL (0.5-4.7); ABSOLUTE MONOCYTES (AUTO) 0.8 10^3/uL (0.1-1.4); ABSOLUTE NEUT (AUTO) 2.8 10^3/uL (1.7-8.2); BASOPHILS % (AUTO) 1.2 % (0-2); HEMATOCRIT 44.3 % (36.0-47.0); HEMOGLOBIN 14.8 g/dL (12.0-15.5); LYMPHOCYTES % (AUTO) 42.8 % (13-45); MEAN CORPUSCULAR HEMOGLOBIN 27.4 pg (27.0-33.4); MEAN CORPUSCULAR HGB CONC 33.3 g/dL (32.0-36.0); MEAN CORPUSCULAR VOLUME 82 fl (80-97); MONOCYTES % (AUTO) 12.3 % (3-13); PLATELET COUNT 419 10^3/uL (150-450); RED BLOOD COUNT 5.38 10^6/uL (3.72-5.28); RED CELL DISTRIBUTION WIDTH 16.5 % (11.5-14.0); SEGMENTED NEUTROPHILS % (AUTO) 43.7 % (42-78); TOTAL CELLS COUNTED % (AUTO) 100 %; WHITE BLOOD COUNT 6.3 10^3/uL (4.0-10.5)
[2019-08-10 20:05] LABS: A TYPE INFLUENZA AG NEGATIVE (NEGATIVE); B INFLUENZA AG NEGATIVE (NEGATIVE)
[2019-08-10 20:12] LABS: ALBUMIN 4.3 g/dL (3.5-5.0); ALKALINE PHOSPHATASE 110 U/L (38-126); ANION GAP 9 (5-19); ASPARTATE AMINO TRANSFERASE 106 U/L (14-36); BILIRUBIN,DIRECT 0.1 mg/dL (0.0-0.4); BILIRUBIN,TOTAL 0.8 mg/dL (0.2-1.3); BLOOD UREA NITROGEN 19 mg/dL (7-20); CALCIUM 9.3 mg/dL (8.4-10.2); CARBON DIOXIDE 27 mmol/L (22-30); CHLORIDE 99 mmol/L (98-107); GLUCOSE 300 mg/dL (75-110); POTASSIUM 4.8 mmol/L (3.6-5.0); TOTAL PROTEIN 7.5 g/dL (6.3-8.2)
[2019-08-10 20:24] LABS: NT PRO BNP 19 pg/mL (<125)
[2019-08-10 20:26] LABS: TROPONIN I < 0.012 ng/mL
--- NOTE | 2019-08-10 21:47 | EKG REPORT ---
SEVERITY:- ABNORMAL ECG - SINUS TACHYCARDIA NONSPECIFIC T ABNORMALITIES, LATERAL LEADS : Confirmed by: Jemima Mason MD 10-Aug-2019 21:46:35
[2019-08-10] MEDS ORDERED: INSULIN REG, HUMAN 100 UNIT/ML 3 ML VIAL (PYX) SUBCUT ONE (22:00)
--- NOTE | 2019-08-10 22:04 | ER Document Report ---
Entered by DILIA BLAS SCRIBE 08/10/19 2148 Acting as scribe for:TUAN COLLINS DO ED General - General Chief Complaint: Shortness Of Breath Stated Complaint: COUGH/CONGESTION Time Seen by Provider: 08/10/19 18:43 Primary Care Provider: CALDERON MOSES MD [Primary Care Provider] - Follow up as needed Mode of Arrival: Ambulatory Information source: Patient Notes: This 54-year-old female with diabetes presents to the emergency department complaining of cold symptoms that began four days ago. Patient reports non- productive cough, light sputum occasionally, muscle aches and low-grade fever. Patient denies sick contact and traveling recently. TRAVEL OUTSIDE OF THE [place] IN LAST 30 DAYS: No - Related Data Allergies/Adverse Reactions: No Known Allergies Allergy (Verified 03/18/19 15:27) Past Medical History - General Information source: Patient - Social History Smoking Status: Never Smoker Cigarette use (# per day): No Chew tobacco use (# tins/day): No Frequency of alcohol use: None Drug Abuse: None Family History: Reviewed & Not Pertinent, CAD, CVA, DM, Hyperlipidemia, Hypertension Patient has suicidal ideation: No Patient has homicidal ideation: No - Past Medical History Cardiac Medical History: Reports: Hx Hypercholesterolemia, Hx Hypertension Pulmonary Medical History: Reports: Hx Bronchitis Neurological Medical History: Endocrine Medical History: Reports: Hx Diabetes Mellitus Type 2 Renal/ Medical History: Reports: Hx Kidney Stones GI Medical History: Reports: Hx Gastritis, Hx Gastroesophageal Reflux Disease Musculoskeletal Medical History: Reports Hx Arthritis Psychiatric Medical History: Reports: Hx Depression Infectious Medical History: Past Surgical History: Reports: Hx Section - X1, Hx Cholecystectomy, Hx Hysterectomy, Hx Inguinal Hernia - Immunizations Immunizations up to date: No Hx Diphtheria, Pertussis, Tetanus Vaccination: No Hx Pneumococcal Vaccination: 05/27/17 Review of Systems - Review of Systems Constitutional: See HPI, Fever EENT: No symptoms reported Cardiovascular: No symptoms reported Respiratory: See HPI, Cough, Sputum - Occasionally Gastrointestinal: No symptoms reported Genitourinary: No symptoms reported Female Genitourinary: No symptoms reported Musculoskeletal: See HPI, Muscle pain Skin: No symptoms reported Hematologic/Lymphatic: No symptoms reported Neurological/Psychological: No symptoms reported -: Yes All other systems reviewed and negative Physical Exam - Vital signs Vitals: Temp Pulse Resp BP Pulse Ox 99.7 F 110 H 20 142/94 H 98 08/10/19 18:24 08/10/19 18:24 08/10/19 18:24 08/10/19 18:24 08/10/19 18:24 - Notes Notes: Physical Exam: General: Alert, appears well. HEENT: Normocephalic. Atraumatic. PERRL. Extraocular movements intact. Oropharynx clear. Neck: Supple. Non-tender. Respiratory: No respiratory distress. Faint expiratory wheezes with good air movement. Cardiovascular: Regular rate and rhythm. Abdominal: Non-tender. No distension. Normal Bowel Sounds. Morbidly Obese. Back: No gross abnormalities. Extremities: Moves all four extremities. Upper extremities: Normal inspection. Normal ROM. Lower extremities: Normal inspection. No edema. Normal ROM. Neurological: Normal cognition. AAOx4. Normal speech. Psychological: Normal affect. Normal Mood. Skin: Warm. Dry. Normal color. Course - Vital Signs Vital signs: Temp Pulse Resp BP Pulse Ox 100.1 F 110 H 21 H 142/94 H 98 08/10/19 21:30 08/10/19 18:24 08/10/19 21:30 08/10/19 18:24 08/10/19 21:30 - Laboratory Result Diagrams: 08/10/19 19:31 08/10/19 19:31 Laboratory results interpreted by me: 08/10/19 08/10/19 19:31 19:31 RBC 5.38 H RDW 16.5 H Sodium 134.7 L Est GFR (MDRD) Non-Af 55 L Glucose 300 H AST 106 H ALT 93 H - Diagnostic Test Radiology reviewed: Reports reviewed - EKG Interpretation by Me EKG shows normal: Sinus rhythm Rate: Normal Rhythm: NSR - Sinus Tachy Nl [place] [address] elevation or depression my interpretation. Discharge - Discharge Clinical Impression: Cough, Myalgia Upper respiratory infection Qualifiers: URI type: unspecified URI Qualified Code(s): J06.9 - Acute upper respiratory infection, unspecified Condition: Good Disposition: HOME, SELF-CARE Instructions: Acetaminophen, Fever ([facility]), Upper Respiratory Illness ([facility]), Viral Syndrome ([facility]) Additional Instructions: Self quarantine your self for the next 4 days until you get the results of the franklin virus test. Use the inhaler for cough and or shortness of breath. Return here for worsening shortness of breath or other problems or concerns. Prescriptions: Benzonatate [Tessalon Perles 100 mg Capsule] 200 mg PO Q8HP PRN #40 capsule PRN Reason: Albuterol Sulfate [Proair HFA Inhalation Aerosol 8.5 gm MDI] 2 puff IH Q4H PRN #1 mdi PRN Reason: Referrals: CALDERON MOSES MD [Primary Care Provider] - Follow up as needed I personally performed the services described in the documentation, reviewed and edited the documentation which was dictated to the scribe in my presence, and it accurately records my words and actions.
[2019-08-10] MEDS ORDERED: ALBUTEROL SULFATE HFA (90 MCG/PUFF) 8 GM MDI IH ONE (23:15)
[2019-08-10 23:33] VITALS: BP 124/84
== END 2019-08-10 23:35 | disposition home or self-care (01) ==
LOC: ER 18:18
DX: J06.9 Acute upper respiratory infection, unspecified (principal); R05 Cough; R50.9 Fever, unspecified; M79.10 Myalgia, unspecified site; E11.9 Type 2 diabetes mellitus without complications; I10 Essential (primary) hypertension; Z20.828 Contact with and (suspected) exposure to other viral communicable diseases
CPT/HCPCS: 93005; 99284; 36415; 82962; 85025; 87635; 80053; 84484; 87804; 83880; 71046; 93010; A9270; J3490

== ENCOUNTER 2019-08-13 10:06 | Emergency (ER) | payer MEDICARE, MEDICAID ==
[2019-08-13] MEDS ORDERED: NORMAL SALINE 1000 ML 1,000 ML IV PRN (10:51)
[2019-08-13 11:08] LABS: VENOUS BLOOD BASE EXCESS -2.2 mmol/L; VENOUS BLOOD HCO3 24.6 mmol/L (20-32); VENOUS BLOOD PCO2 49.7 mmHg (35-63); VENOUS BLOOD PH 7.31 (7.30-7.42)
[2019-08-13 11:09] LABS: ABSOLUTE BASOPHILS # (AUTO) 0.1 10^3/uL (0.0-0.2); ABSOLUTE LYMPHOCYTES (AUTO) 1.2 10^3/uL (0.5-4.7); ABSOLUTE MONOCYTES (AUTO) 0.5 10^3/uL (0.1-1.4); ABSOLUTE NEUT (AUTO) 7.5 10^3/uL (1.7-8.2); BASOPHILS % (AUTO) 0.7 % (0-2); HEMATOCRIT 44.6 % (36.0-47.0); HEMOGLOBIN 14.6 g/dL (12.0-15.5); LYMPHOCYTES % (AUTO) 12.7 % (13-45); MEAN CORPUSCULAR HEMOGLOBIN 27.5 pg (27.0-33.4); MEAN CORPUSCULAR HGB CONC 32.8 g/dL (32.0-36.0); MEAN CORPUSCULAR VOLUME 84 fl (80-97); MONOCYTES % (AUTO) 5.5 % (3-13); PLATELET COUNT 360 10^3/uL (150-450); RED BLOOD COUNT 5.32 10^6/uL (3.72-5.28); RED CELL DISTRIBUTION WIDTH 16.2 % (11.5-14.0); SEGMENTED NEUTROPHILS % (AUTO) 81.1 % (42-78); TOTAL CELLS COUNTED % (AUTO) 100 %; WHITE BLOOD COUNT 9.3 10^3/uL (4.0-10.5)
[2019-08-13 11:25] LABS: INTERNATIONAL RATION (INR) 1.05; PROTHROMBIN TIME 13.7 SEC (11.4-15.4)
[2019-08-13 11:55] LABS: APPEARANCE,URINE CLOUDY; BILIRUBIN,URINE NEGATIVE (NEGATIVE); COLOR,URINE YELLOW; GLUCOSE, URINE >=500 mg/dL (NEGATIVE); KETONES,URINE NEGATIVE (NEGATIVE); PROTEIN,URINE 30 mg/dL (NEGATIVE); URINE SPECIFIC GRAVITY 1.023; UROBILINOGEN,URINE NEGATIVE mg/dL (<2.0)
--- NOTE | 2019-08-13 11:59 | RADIOLOGY REPORT (SQ) ---
EXAM DESCRIPTION: CHEST SINGLE VIEW COMPLETED DATE/TIME: 08/13/2019 11:47 am REASON FOR STUDY: cough COMPARISON: None. EXAM PARAMETERS: NUMBER OF VIEWS: One view. TECHNIQUE: Single frontal radiographic view of the chest acquired. RADIATION DOSE: NA LIMITATIONS: None. FINDINGS: LUNGS AND PLEURA: No opacities, masses or pneumothorax. No pleural effusion. MEDIASTINUM AND HILAR STRUCTURES: No masses. Contour normal. HEART AND VASCULAR STRUCTURES: Heart normal in size. Normal vasculature. BONES: No acute findings. HARDWARE: None in the chest. OTHER: No other significant finding. IMPRESSION: NO ACUTE RADIOGRAPHIC FINDING IN THE CHEST. TECHNICAL DOCUMENTATION: JOB ID: [id number] 2010 [employer]- All Rights Reserved Reading location - IP/workstation name: [email or web address]
[2019-08-13 12:16] LABS: A TYPE INFLUENZA AG POSITIVE (NEGATIVE); B INFLUENZA AG NEGATIVE (NEGATIVE)
--- NOTE | 2019-08-13 12:57 | ER Document Report ---
ED General - General Chief Complaint: Cough Stated Complaint: COUGH,DIARRHEA Time Seen by Provider: 08/13/19 10:17 Primary Care Provider: CALDERON MOSES MD [Primary Care Provider] - Follow up as needed TRAVEL OUTSIDE OF THE [place] IN LAST 30 DAYS: No - HPI Notes: Patient is a 54-year-old female who presents to the emergency department for evaluation of cough, shortness of breath. She is a very difficult historian. She states to me that yesterday she felt fine. She states she all started with cough, shortness of breath with exertion, and feeling as if she was febrile at home. She denies having a thermometer. On further questioning, it is discovered that the patient presented with very similar symptoms 2 days ago, had symptoms for 4 days prior to that. She has no known coronavirus exposures or high risk factors. In fact, she is already pending for coronavirus testing. She complains of a tightness in her chest that she states is secondary to difficulty breathing. - Related Data Allergies/Adverse Reactions: No Known Allergies Allergy (Verified 03/18/19 15:27) Home Medications: Unchanged from prior visit, reviewed with patient Past Medical History - General Information source: Patient - Social History Smoking Status: Unknown if Ever Smoked Family History: Reviewed & Not Pertinent, CAD, CVA, DM, Hyperlipidemia, Hypertension Patient has suicidal ideation: No Patient has homicidal ideation: No - Past Medical History Cardiac Medical History: Reports: Hx Hypercholesterolemia, Hx Hypertension Pulmonary Medical History: Reports: Hx Bronchitis Neurological Medical History: Endocrine Medical History: Reports: Hx Diabetes Mellitus Type 2 Renal/ Medical History: Reports: Hx Kidney Stones. Denies: Hx Peritoneal Dialysis GI Medical History: Reports: Hx Gastritis, Hx Gastroesophageal Reflux Disease Musculoskeletal Medical History: Reports Hx Arthritis Psychiatric Medical History: Reports: Hx Depression Infectious Medical History: Past Surgical History: Reports: Hx Section - X1, Hx Cholecystectomy, Hx Hysterectomy, Hx Inguinal Hernia - Immunizations Immunizations up to date: No Hx Diphtheria, Pertussis, Tetanus Vaccination: No Hx Pneumococcal Vaccination: 05/27/17 Review of Systems - Review of Systems Constitutional: See HPI Cardiovascular: See HPI Respiratory: See HPI -: Yes All other systems reviewed and negative Physical Exam - Vital signs Vitals: Temp Resp BP Pulse Ox 97.9 F 25 H 94/80 L 96 08/13/19 10:22 08/13/19 10:22 08/13/19 10:22 08/13/19 10:22 - Notes Notes: This is an obese 54-year-old female who appears her stated age in no acute distress. Vital signs reviewed, please refer to chart. Head is normocephalic, atraumatic. Pupils equal round, reactive to light. Neck is supple without meningismus. Heart is regular rate and rhythm. Lungs are clear to auscultation bilaterally. Abdomen is soft, nontender, normoactive bowel sounds throughout. Extremities without cyanosis, clubbing. Posterior calves are nontender. Peripheral pulses are equal. Skin is warm and dry. Patient is awake, alert, neurological exam is nonfocal. Course - Re-evaluation Re-evalutation: 08/13/19 12:56 Patient presents emergency department for evaluation. Secondary to her size, we did have difficulty obtaining IV access and obtaining blood that was not hemolyzed. Patient had multiple IV attempts, she refuses IO. We are waiting for phlebotomy to come and draw a repeat chemistry. Her laboratory investigations confirmed that she is in fact influenza A positive. She had initially been treated with full airborne precautions, these were dropped to droplet precautions in light of her positive influenza test. Again, she had a franklin test performed a few days ago, it is of course still pending. Awaiting repeat chemistry to determine whether continued IV access should be attempted. Otherwise she is given oral fluids and we will continue to monitor. 08/13/19 16:34 Patient's chemistries revealed an elevated glucose but she is not acidotic. She is not in DKA. We discussed dietary changes to help her with her glucose control. I also discussed with her that officially she is still on quarantine for COVID. I discussed with her her mildly elevated heart rate and her dyspnea with exertion. Certainly this could be related to influenza, but it is also secondary to her obesity. At this point, her symptoms have been present for several days, as she was seen here 48 hours ago for COVID testing. I do not see any indication for Tamiflu. Her blood pressure and heart rate improved after IV fluids. She will be discharged for outpatient follow-up. 08/13/19 17:23 Please note the patient remained mildly tachycardic. This does not surprise me given her body habitus. I do not fully suspect that her blood pressures are accurate. Her arm is too small for the thigh cuff, too large for the large adult cuff. Patient was sitting up during her entire visit, not dizzy, texting, walking without difficulty. - Vital Signs Vital signs: Temp Pulse Resp BP Pulse Ox 97.9 F 22 H 101/82 99 08/13/19 10:22 08/13/19 17:12 08/13/19 17:12 08/13/19 17:12 - Laboratory Result Diagrams: 08/13/19 10:41 08/13/19 15:24 Laboratory results interpreted by me: 08/13/19 08/13/19 08/13/19 10:41 10:41 10:48 RBC 5.32 H RDW 16.2 H Lymph % (Auto) 12.7 L Seg Neutrophils % 81.1 H Sodium BUN Glucose POC Glucose 445 H* Lactic Acid 2.8 H AST ALT Urine Protein Urine Glucose (UA) Urine Blood Leukocyte Esterase Rfl 08/13/19 08/13/19 08/13/19 11:07 11:20 15:24 RBC RDW Lymph % (Auto) Seg Neutrophils % Sodium 136.1 L BUN 30 H Glucose 383 H POC Glucose 418 H* Lactic Acid AST 37 H ALT 52 H Urine Protein 30 H Urine Glucose (UA) >=500 H Urine Blood SMALL H Leukocyte Esterase Rfl LARGE H - Diagnostic Test Radiology reviewed: Reports reviewed Radiology results interpreted by me: 08/13/19 16:39 Chest X-Ray 08/13/19 10:50 IMPRESSION: NO ACUTE RADIOGRAPHIC FINDING IN THE CHEST. - EKG Interpretation by Me Additional EKG results interpreted by me: 08/13/19 16:39 Sinus tachycardia. Normal axis. Borderline prolonged QT interval. No acute ST changes concerning for infarction. Discharge - Discharge Clinical Impression: Influenza A Uncontrolled type 2 diabetes mellitus Qualifiers: Glycemic state: with hyperglycemia Qualified Code(s): E11.65 - Type 2 diabetes mellitus with hyperglycemia Hyperglycemia due to type 2 diabetes mellitus Qualifiers: Diabetes mellitus detention insulin use: without equipment operator intermodal yard use Qualified Code(s): E11.65 - Type 2 diabetes mellitus with hyperglycemia Condition: Stable Disposition: HOME, SELF-CARE Instructions: Acetaminophen, Influenza ([facility]) Additional Instructions: Rest, stay well-hydrated. Officially you are still on quarantine for COVID testing. You need to discuss better glucose control with your primary care provider. Follow-up with primary care next week. Return to the emergency department for worsening or new concerning symptoms of any sort. Referrals: CALDERON MOSES MD [Primary Care Provider] - Follow up as needed
--- NOTE | 2019-08-13 15:53 | EKG REPORT ---
SEVERITY:- ABNORMAL ECG - SINUS TACHYCARDIA PROBABLE LEFT ATRIAL ABNORMALITY NONSPECIFIC T ABNORMALITIES, ANTERIOR LEADS BORDERLINE PROLONGED QT INTERVAL : Confirmed by: Jemima Mason MD 13-Aug-2019 15:52:58
[2019-08-13 16:02] LABS: ALBUMIN 3.9 g/dL (3.5-5.0); ALKALINE PHOSPHATASE 112 U/L (38-126); ANION GAP 9 (5-19); ASPARTATE AMINO TRANSFERASE 37 U/L (14-36); BILIRUBIN,DIRECT 0.1 mg/dL (0.0-0.4); BILIRUBIN,TOTAL 0.6 mg/dL (0.2-1.3); BLOOD UREA NITROGEN 30 mg/dL (7-20); CALCIUM 9.1 mg/dL (8.4-10.2); CARBON DIOXIDE 27 mmol/L (22-30); CHLORIDE 100 mmol/L (98-107); GLUCOSE 383 mg/dL (75-110); POTASSIUM 4.8 mmol/L (3.6-5.0); TOTAL PROTEIN 7.2 g/dL (6.3-8.2)
[2019-08-13 17:19] VITALS: BP 101/82
== END 2019-08-13 17:39 | disposition home or self-care (01) ==
LOC: ER 10:06
DX: J10.1 Influenza due to other identified influenza virus with other respiratory manifestations (principal); E11.65 Type 2 diabetes mellitus with hyperglycemia; R05 Cough; R06.02 Shortness of breath; R07.89 Other chest pain; I10 Essential (primary) hypertension; E66.9 Obesity, unspecified; R00.0 Tachycardia, unspecified
CPT/HCPCS: 93005; 99285; 96360; 96361; 36415; 87040; 82962; 83605; 85025; 85610; 87077; 80053; 81001; 87186; 82803; 87804; 87150 ×26; 71045; 93010; J7030